=== PATIENT | male | born 1960 | race Caucasian/White ===

== ENCOUNTER 2018-01-21 15:10 | Outpatient (CLI) | payer MEDICARE ==
[~2018-01-21] VITALS: Ht 172.7 cm; Wt 97.7 kg
--- NOTE | ~2018-01-21 | HEMODYNAMI ---
PATIENT:JILLIAN SINCLAIR MEDICAL RECORD: [id number] : 58 [facility] AD[facility]ION DATE: 01/21/18 Generatedon:01/22/20189:09 Patient name: JILLIAN SINCLAIR Patient #: [id number] SSN: DO B: 1960 Date of study: 01/22/2018 Page: Of Hemodynamic Procedure Report Patient Data Patient Demographics Procedure consent was obtained First Name: JILLIAN Gender: Male Last Name: DOTTIE : 1960 Middle Initial: D Age: 57 year(s) Patient #: [id number] Race: Unknown Additional ID: [id number] Contact details Address: [address] [place] [address] [place] State: [place] City: [place] Zip code: [address] Past Medical History Allergies Allergen Reaction Date Comments Reported Other allergy 01/22/2018 Niacin, Lipitor Admission Admission Data Admission Date: 01/21/2018 Admission Time: 15:10 Admit Source: Other Room #: .2121 Procedure Procedure Types Cath Procedure Diagnostic Procedure C LH w/Coronaries Sedation Charges Moderate Sedation up to 15 minutes PCI Procedure Coronary Stent Coronary Stent Initial Procedure Description Procedure Date Procedure Date: 01/22/2018 Procedure Start Time: 8:46 Procedure End Time: 9:09 Procedure Staff Name Function Lamont Brand MD Performing Physician Cortney Albright RT Monitor Terell Smith RT Scrub Jamie Jones RN Nurse Procedure Data Cath Procedure Fluoroscopy Diagnostic fluoroscopy Total fluoroscopy Time: 4.6 time: 4.6 min min Diagnostic fluoroscopy Total fluoroscopy dose: 532 dose: 532 mGy mGy Contrast Material Contrast Material Type Amount (ml) Isovue 300 112 Entry Location Entry Primary Successful Side Size Upsize Upsize Entry Closure Lowe ccessful Closure Location (Fr) 1 (Fr) 2 (Fr) Remarks Device Remarks Radial Right 6 Fr Mechanical artery Short Compression Estimated blood loss: 5 ml Diagnostic catheters Device Type Used For End Catheter Placement DIAGNOSTIC Nelson 110cm 5 LV Angiography Fr catheter ([id number]) DIAGNOSTIC Nelson 110cm 5 Left Coronary Fr catheter ([id number]) Angiography DIAGNOSTIC Nelson 110cm 5 Right Coronary Fr catheter ([id number]) Angiography Procedure Complications No complications Procedure Medications Medication Administration Route Dosage Oxygen etCO2 Nasal cannula 2 l/min Heparin Flush Bag added to field 2 bags (1000units/500ml NS) 0.9% NaCl I.V. 100 ml/hr Radial Cocktail added to field 1 syringe (Verapomil 2mg/Nitro 400mcg/Heparin 1500units) Fentanyl I.V. 50 mcg Versed I.V. 1 mg Radial Cocktail I.A. 1 syringe (Verapomil 2mg/Nitro 400mcg/Heparin 1500units) Fentanyl I.V. 50 mcg Versed I.V. 1 mg Heparin Bolus I.V. 5000 units Integrilin (Bolus I.V. 9 ml 2mg/ml) Integrilin (Bolus wasted 1 ml 2mg/ml) Plavix P.O. 75 mg Hemodynamics Rest Heart Rate: 70 (bpm) Pressure Samples Time Site Value (mmHg) Purpose Heart Use Rate(bpm) 8:49 LV 106/8,14 EDP 70 8:49 AO 107/72(87) Pullback 71 8:49 LV 84/4,8 Pullback 71 Gradients Valve Time Site 1 Site 2 Mean SEP/DFP Peak To Heart Use (mmHg) (sec/min) Peak Rate (mmHg) (bpm) Aortic 8:49 LV AO 0 6 0 71 84/4,8 107/72(87) Calculations Valve P-P Mean Valve Index Valve Source Name Gradient Area Flow (cm2) Aortic 0 0 0 0 Snapshots Pre Cath Intra NCS Post Cath Vital Signs Time Heart Resp SPO2 etCO2 NIBP (mmHg) Rhythm Pain Sedation Rate (ipm) (%) (mmHg) Status Level (bpm) 8:35:30 69 16 88 0 134/84(119) NSR 0 (11) 10(A) , No pain 8:39:52 63 16 96 33.2 140/79(108) NSR 0 (11) 10(A) , No pain 8:44:12 75 17 94 33.2 146/92(112) NSR 0 (11) 10(A) , No pain 8:48:38 80 17 92 24.9 135/73(99) NSR 0 (11) 10(A) , No pain 8:52:57 66 17 90 37 116/78(94) NSR 0 (11) 10(A) , No pain 8:57:15 75 16 92 37 123/67(87) NSR 0 (11) 10(A) , No pain 9:01:28 74 16 93 36.3 110/68(99) NSR 0 (11) 10(A) , No pain 9:05:38 64 16 94 33.2 120/82(96) NSR 0 (11) 10(A) , No pain 9:08:47 72 16 93 37.8 128/83(93) NSR 0 (11) 10(A) , No pain Medications Time Medication Route Dose Verified Delivered Reason Note s Effectiveness by by 8:40:31 Oxygen etCO2 2 l/min Lamont Ayala Per physician Nasal St Narciso Jones RN cannula 8:40:40 Heparin Flush added 2 bags Lamont Ayala used for Bag to St Narciso Jones RN procedure (1000units/500ml field KOCH NS) 8:40:49 0.9% NaCl I.V. 100 Lamont Ayala Per physician ml/hr St Narciso Jones RN, MD 8:40:57 Radial Cocktail added 1 Lamont Ayala used for (Verapomil to syringe St Narciso Jones RN procedure 2mg/Nitro field KOCH 400mcg/Heparin 1500units) 8:46:22 Fentanyl I.V. 50 mcg Lamont Ayala for sedation St Narciso Jones RN, MD 8:46:28 Versed I.V. 1 mg Lamont Ayala for sedation St Narciso Jones RN, MD 8:48:19 Radial Cocktail I.A. 1 Lamont Miguel for (Verapomil syringe [place] [facility] vasodilation 2mg/Artemio KOCH MD 400mcg/Heparin 1500units) 8:48:27 Fentanyl I.V. 50 mcg Lamont Ayala for sedation St Narciso Jones RN, MD 8:48:32 Versed I.V. 1 mg Lamont Ayala for sedation St Narciso Jones RN, MD 8:55:53 Heparin Bolus I.V. 5000 Lamont Ayala for units St Narciso Jones RN anticoagulation 8:59:16 Integrilin I.V. 9 ml Lamont Ayala for (Bolus 2mg/ml) St Narciso Jones RN antiplatelet MD therapy 8:59:23 Integrilin wasted 1 ml Lamont hitchcock (Bolus 2mg/ml) [facility] Narciso Jones RN antiplatelet MD therapy 9:05:34 Plavix P.O. 75 mg Lamont Kaplan RN antiplatelet MD therapy Procedure Log Time Note 8:12:25 Jamie Jones RN sent for patient. Start room use. 8:22:05 Informed consent obtained and on chart 8:22:09 Admit Source: Other 8:22:24 Diagnostic Cath status Elective 8:22:26 Time tracking: Regular hours (M-F 7:00 - 5:00) 8:22:30 Plan of Care:Hemodynamics will remain stable., Cardiac rhythm will remain stable., Comfort level will be maintained., Respiratory function will remain adequate., Patient/ family verbilizes understanding of procedure., Procedure tolerated without complication., Recovers from procedure without complications.. 8:24:51 Patient received from Med II to CCL 3 Alert and oriented. Tansferred to table in Supine position. 8:24:52 Warm blankets applied, and usman hugger turned on for patient comfort. 8:24:52 Correct patient and procedure confirmed by team. 8:24:53 ECG and BP/O2 sat monitors applied to patient. 8:24:53 Pre-procedure instructions explained to patient. 8:24:54 Pre-op teaching completed and patient verbalized understanding. 8:24:56 Family in patients room. 8:24:57 Patient NPO since Midnight. 8:34:16 Vital chart was started 8:40:17 Baseline sample Acquired. 8:40:27 Rhythm: sinus rhythm 8:40:29 Full Disclosure recording started 8:40:31 Oxygen 2 l/min etCO2 Nasal cannula was administered by Jamie Jones RN; Per physician; 8:40:40 Heparin Flush Bag (1000units/500ml NS) 2 bags added to field was administered by Jamie Jones RN; used for procedure; 8:40:49 0.9% NaCl 100 ml/hr I.V. was administered by Jamie Jones RN; Per physician; 8:40:52 H&P Date Dictated: 01/21/2018 Within 30 days and on chart.. 8:40:57 Radial Cocktail (Verapomil 2mg/Nitro 400mcg/Heparin 1500units) 1 syringe added to field was administered by Jamie Jones RN; used for procedure; 8:41:09 Patient allergic to Other allergyNiacin, Lipitor 8:41:11 Is the patient allergic to Iodine/contrast media? No. 8:41:13 Is patient on blood thinner?Yes 8:41:15 ACC The patient was administered the following blood thiners within the last 24 hours: ACCPlavix 8:41:18 Patient diabetic? Yes. 8:41:20 If diabetic: On Metformin? Yes 8:41:22 If on Metformin: Last Dose? 01/21/2018 8:41:26 Previous problem with sedation/anesthesia? No ? 8:41:29 Snore? Yes 8:41:30 Sleep apnea? Yes 8:41:31 Deviated septum? No 8:41:32 Opens mouth fully? Yes 8:41:32 Sticks out tongue? Yes 8:41:38 Airway obstruction? No ? 8:41:42 Dentures? Yes ? 8:41:47 Pre procedure: right dorsailis pedis pulse 2+ Normal; easily identifiable; not easily obliterated 8:41:48 Modified Boris's test Ulnar < 7 seconds 8:41:51 Patient pain scale 0/10 ?. 8:41:58 IV patent on arrival in left antecubital with 0.9% NaCl at KVO. 8:42:00 Lab results completed and on chart. 8:42:04 Right Radial & Right Groin area was prepped with chlora-prep and draped in sterile fashion 8:42:05 Alarms reviewed by R. N. 8:42:05 Sharps counted by scrub and verified by R.N. 8:42:08 Use device set Radial Dx or PCI 8:42:09 ACIST Syringe (33472) opened to sterile field. 8:42:10 Medline Cath Pack ([id number]) opened to sterile field. 8:42:10 Bag Decanter (2002) opened to sterile field. 8:42:10 DIAGNOSTIC WIRE .035 260cm J wire (484337) opened to sterile field. 8:42:11 ACIST Hand Control (55179) opened to sterile field. 8:42:11 ACIST Manifold (40499) opened to sterile field. 8:42:16 SHEATH 6Fr Prelude Radial ([id number]) opened to sterile field. 8:42:25 Final Timeout: patient, procedure, and site verified with staff and physician. All members of the team are in agreement. 8:42:29 Right Radial site verified by team. 8:42:31 Physical assessment completed. ASA score P 2 - A patient with mild systemic disease as per Lamont Brand MD. 8:42:34 Sedation plan: IV Moderate Sedation Medication:Versed, Fentanyl 8:46:07 Zero performed for pressure channel P1 8:46:14 Procedure started. 8:46:19 Local anesthetic to right radial artery with Lidocaine 2% by Lamont Brand MD.INITIAL ACCESS ONLY 8:46:22 Fentanyl 50 mcg I.V. was administered by Jamie Jones RN; for sedation; 8:46:28 Versed 1 mg I.V. was administered by Jamie Jones RN; for sedation; 8:47:12 A 6 Fr Short sheath was inserted into the Right Radial artery 8:47:57 A DIAGNOSTIC Nelson 110cm 5 Fr catheter ([id number]) was advanced over the wire and used for LV Angiography. 8:48:19 Radial Cocktail (Verapomil 2mg/Nitro 400mcg/Heparin 1500units) 1 syringe I.A. was administered by Lamont Brand MD; for vasodilation; 8:48:27 Fentanyl 50 mcg I.V. was administered by Jamie Jones RN; for sedation; 8:48:32 Versed 1 mg I.V. was administered by Jamie Jones RN; for sedation; 8:49:31 LV gram done using ZEB 8:49:34 LV hemodynamics recorded. 8:49:38 Injector settings: Ml/sec: 5, Volume: 15, 8:49:43 EF : 55 % 8:50:12 A DIAGNOSTIC Nelson 110cm 5 Fr catheter (310304) was advanced over the wire and used for Left Coronary Angiography. 8:53:02 A DIAGNOSTIC Nelson 110cm 5 Fr catheter (183212) was advanced over the wire and used for Right Coronary Angiography. 8:53:07 Catheter removed. 8:53:11 Use device set MARYDEL PCI 8:53:13 GUIDE 6FR EBU 3.5 catheter ([id number]) opened to sterile field. 8:53:18 INFLATOR Merit BasixCompak (KQ6643) opened to sterile field. 8:54:20 WHISPER 300cm guide wire ([id number]) opened to sterile field. 8:55:36 6 Fr EBU 3.5 guide catheter was inserted over the wire 8:55:53 Heparin Bolus 5000 units I.V. was administered by Jamie Jones RN; for anticoagulation; 8:59:16 Integrilin (Bolus 2mg/ml) 9 ml I.V. was administered by Jamie Jones RN; for antiplatelet therapy; 8:59:23 Integrilin (Bolus 2mg/ml) 1 ml wasted was administered by Jamie Jones RN; for antiplatelet therapy; 8:59:29 WHISPER wire advanced. 9:03:11 Place stent Inflation Number: 1 A LARS OTW 3.0 x 18 stent ([id number]) was prepped and advanced across the Prox LAD. The stent was deployed at 14 DAVON for 0:30 (min:sec). 9:03:19 Stent catheter was removed intact over wire. 9:04:45 Wire removed. 9:04:45 Guide catheter removed. 9:05:01 Sheath removed intact; hemostasis achieved with Mechanical Compression to the Right Radial artery. 9:05:05 Procedure ended.(Physican Out) 9:05:34 Plavix 75 mg P.O. was administered by Jamie Jones RN; for antiplatelet therapy; 9:05:42 Fluoroscopy time 04.60 minutes. 9:05:50 Flurop Dose total: 532 9:05:50 Fluoroscopy dose: 532 mGy 9:05:59 Contrast amount:Isovue 300 112ml. 9:06:00 Sharps counted by scrub and verified by R.N. 9:06:02 Insertion/operative site no bleeding no hematoma. 9:06:04 TR band inflated with 10cc of air. 9:06:14 Post right radial artery:stable, clean and dry 9:06:15 Post Procedure Pulses reassessed and unchanged 9:06:17 Post-procedure physical assessment completed. ASA score P 2 - A patient with mild systemic disease as per Lamont Brand MD. 9:06:21 Post procedure rhythm: sinus rhythm 9:06:24 Estimated blood loss: 5 ml 9:06:26 Post procedure instruction explained to patient.Patient verbalizes understanding. 9:06:26 Patient needs reinforcement of post procedure teaching. 9:06:33 Procedure type changed to Cath procedure, Diagnostic procedure, LHC, LHC w/Coronaries, Sedation Charges, Moderate Sedation up to 15 minutes, PCI procedure, Coronary Stent, Coronary Stent Initial 9:07:15 Procedure and supply charges have been captured, reviewed, submitted and are correct. 9:07:30 Procedure Complication : No complications 9:07:32 See physician's report for complete and final results. 9:07:42 Report given to Pre/Post Procedure Room. 9:07:47 Patient transfered to Pre/Post Procedure Room with Bed. 9:09:11 Vital chart was stopped 9:09:12 Procedure ended. 9:09:12 Full Disclosure recording stopped 9:09:16 End room use (Document Last) Intervention Summary Intervention Notes Time ActionType Lesion and Equipment Action# Pressure Duration Attributes Used 9:03:11 Place stent Prox LAD LARS OTW 3.0 1 14 00:30 x 18 stent ([id number]) Device Usage Item Name Manufacture Quantity Catalog Number Hospital Part Current Minimal Lot# / Charge Number Stock Stock Serial# Code ACIST Syringe Acist 1 90556 250355 129558 282337 20 (68022) Medical Systems Inc Medline Cath Medline 1 [id number] 840481 10912 676933 5 Pack ([id number]) Bag Decanter Microtek 1 2001S 070607 62529 897499 5 () Medical Inc. DIAGNOSTIC WIRE St Teddy 1 551470 224591 784235 439081 30 .035 260cm J wire (054412) ACIST Hand Acist 1 76544 679776 974173 204804 5 Control (97502) [employer] ACIST Manifold Acist 1 25701 352686 227714 909660 5 (21398) Medical Systems Inc SHEATH 6Fr Merit 1 [id number] 777462 504444 182027 5 Prelude Radial Medical ([id number]) DIAGNOSTIC Terumo 1 40-5213 906013 815993 855656 5 Nelson 110cm 5 Fr catheter (122117) GUIDE 6FR EBU Medtronic 1 [id number] 468566 35302 809009 3 3.5 catheter ([id number]) INFLATOR Merit Merit 1 KO0157 373312 288076 793244 15 [employer] (AS4012) WHISPER 300cm Cheng 1 [id number] 113858 612698 692159 5 guide wire Vascular ([id number]) LARS OTW 3.0 x Medtronic 1 [id number] 577941 5045544 240263 5 [id number] 18 stent ([id number]) Signature Audit Long Key Stage Time Signature Unsigned Intra-Procedure 01/22/2018 Cortney 9:09:27 AM Counts RT(R) Signatures Monitor : Cortney Signature : Counts RT Date : Time : [address] [address]
--- NOTE | ~2018-01-21 | OP ---
PATIENT NAME: JILLIAN SINCLAIR MEDICAL RECORD: [id number] :58 [facility]ATION[facility] ADMISSION DATE:01/21/18 SURGEON: YOLANDA MANUEL MD DATE OF OPERATION: 01/22/2018 PROCEDURE: Left heart catheterization, selective coronary angiography, right radial approach. CATHETERS: Richardson catheter, radial sheath. We proceeded to do a PTCA stenting of the LAD. FINDINGS: Left ventriculography in 30-degree CASILLAS view: Normal wall motion and normal systolic function. CORONARY ANATOMY: LEFT MAIN: Left main is free of disease. LAD: Has a fissured plaque in its proximal portion, obviously culprit with about a 90% luminal encroachment. CIRCUMFLEX: Has 2 sequential 80% stenoses. RIGHT CORONARY ARTERY: Diffusely disease, but no flow obstructive stenosis. PLAN: Intervention LAD, circumflex in a staged fashion. DESCRIPTION OF PROCEDURE: Using the indwelling sheath, an EBU 3.5 guiding catheter provided good guide catheter support followed by 300 cm Whisper wire. The 90% fissured plaque in the LAD was addressed with a 3.0 x 18 Taurus drug-eluting stent to 14 atmospheres. This shows excellent resolution of a 90% plus stenosis with nice tacking of the fissured plaque to no significant residual. JOSHUA flow was 3 throughout the procedure. Sheath was closed with TR band. Plavix was loaded in the lab. He will be brought back again later today for staged procedure. 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
--- NOTE | ~2018-01-21 | HP ---
PATIENT: SANCHEZ SINCLAIR MEDICAL RECORD: [id number] ACCOUNT: [id number] LOCATION:[facility] : 58 ADMISSION DATE: 01/21/18 PCP: YURIDIA HARDING HISTORY AND PHYSICAL EXAMINATION HISTORY OF PRESENT ILLNESS: Sanchez [place] is a 57-year-old gentleman with a known history of coronary artery disease, status post intervention approximately 4 years ago. He has a history of dyslipidemia, statin intolerant, transferred from [place] with elevated troponin, consistent with NSTEMI. He has had his usual angina as of late. Agree with rest; however, does try to work out on a regular basis. He is a nonsmoker. PAST MEDICAL HISTORY: Includes: 1. History of hyperlipidemia. 2. Coronary artery disease as described above. ALLERGIES: STATINS, which cause myalgias. MEDICATIONS: Aspirin 325 every day. SOCIAL HISTORY: Lives in the [facility]. He is a nonsmoker, nondrinker. Does exercise on a regular basis. REVIEW OF SYSTEMS: The patient reports easy bruising but reports no swollen glands. The patient reports no fever, no night sweats, no significant weight gain, no significant weight loss. No significant exercise tolerance. The patient reports no dry eyes, no irritation, no vision change. Patient reports no difficulty hearing and no ear pain. Patient reports no frequent nose bleeds or nose and sinus problems. Patient reports on arm pain on exertion. No shortness of breath while lying down. No history of heart murmur. Patient reports no cough, no wheezing or coughing up blood. Patient reports no abdominal pain, no vomiting. Normal appetite. No diarrhea and not vomiting blood. No nausea and no constipation. Patient reports no incontinence. No difficulty urinating. No hematuria. No increased frequency. Patient reports no muscle aches. No weakness, no arthralgias, no back pain. No swelling of the extremities. Patient reports no abnormal mole, no jaundice, no rashes. Reports no loss of consciousness. No weakness and no numbness. No seizures, dizziness, or headaches. The patient reports no depression, no sleep disturbance, feeling safe in a relationship and no alcohol abuse. Patient reports on fatigue. Reports no runny nose or sinus pressure. No itching, no hives, and no frequent sneezing. PHYSICAL EXAMINATION: GENERAL: Pleasant gentleman, appears stated age. VITAL SIGNS: Blood pressure 115/67, pulse 60 and regular. HEENT: Normocephalic and atraumatic. NECK: No bruits. HEART: Regular. A II/ systolic ejection murmur. LUNGS: Good air excursion. ABDOMEN: Soft and nontender. EXTREMITIES: Pulses 2+. There is no edema. NEUROLOGIC: Grossly intact. IMPRESSION: NSTEMI, acute coronary syndrome. HISTORY AND PHYSICAL [id number] SANCHEZ SINCLAIR PLAN: Angiography, intervention based on above. 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
[2018-01-21 18:33] VITALS: BP 135/71; BMI 32.7
[2018-01-21 22:02] VITALS: BP 120/58
[2018-01-22 01:00] VITALS: BP 122/67
[2018-01-22 04:00] VITALS: BP 114/69
[2018-01-22] MEDS ORDERED: GLUCOPHAGE XR750 MG PO ×2 (04:06→09:46)
[2018-01-22] MEDS ORDERED: LIPITOR10 MG PO ×2 (04:06→09:46)
[2018-01-22 04:49] LABS: BASOPHILS 0.4 % (0-2); EOSINOPHILS 4.2 % (0-7); HEMATOCRIT 47.9 % (42.0-54.0); HEMOGLOBIN 15.8 g/dL (13.5-17.5); IMMATURE GRANULOCYTES 0.3 % (0-5); LYMPHOCYTES 27.7 % (15-50); MCH 29.3 pg (26.0-34.0); MCV 88.7 fL (80.0-100.0); MEAN PLATELET VOLUME 10.6 fL (7.4-10.4); MONOCYTES 7.8 % (2-11); NEUTROPHILS 59.6 % (40-80); PLATELET COUNT 186 10x3/uL (130-400); RDW 14.4 % (11.5-14.5); WBC 9.6 10x3/uL (4.8-10.8)
[2018-01-22 05:08] LABS: CALC OSMOLALITY 279 mosm/kg (275-300); CALCIUM 8.8 mg/dL (8.5-10.1); CARBON DIOXIDE 24.7 mmol/L (21.0-32.0); CHLORIDE - SERUM 104 mmol/L (98-107); CREATININE - SERUM 0.7 mg/dL (0.6-1.3); GLUCOSE 147 mg/dL (74-106); POTASSIUM - SERUM 4.2 mmol/L (3.5-5.1); SODIUM 138 mmol/L (136-145); UREA NITROGEN 15 mg/dL (7-18); eGFR NON AFRICAN AMERICAN > 90 mL/min (90-120)
[2018-01-22 08:08] VITALS: BP 115/67
[2018-01-22] MEDS ORDERED: PLAVIX75 MG PO (09:40)
[2018-01-22] MEDS ORDERED: BAYER CHEWABLE81 MG PO (09:44)
[2018-01-27 12:55] VITALS: Ht 172.7 cm; Wt 97.7 kg
== END 2018-01-22 13:16 | disposition home or self-care (01) ==
LOC: OBSVTIME → D.OPS 15:10 → UNDOADMOB 15:10 → D.M2 15:10 → D.CLR 15:10 → OBSVTIME 15:11 → D.M2 01-22 09:17 → D.CLR 01-22 09:17 → EDSTATUS 01-22 12:30 → D.CLR 01-22 13:16 → EDBD 01-22 13:16 → D.CLR 01-22 13:16 → D.OPS 01-22 13:16
PROVIDERS: Internal Medicine Interventional Cardiology
DX: I21.4 Non-ST elevation (NSTEMI) myocardial infarction (principal); I25.10 Atherosclerotic heart disease of native coronary artery without angina pectoris; Z98.61 Coronary angioplasty status; E78.5 Hyperlipidemia, unspecified
CPT/HCPCS: 93458; C9600

== ENCOUNTER 2018-01-27 11:26 | Outpatient (CLI) | payer MEDICARE ==
[~2018-01-27] VITALS: Ht 172.7 cm; Wt 96.8 kg
--- NOTE | ~2018-01-27 | HEMODYNAMI ---
PATIENT:JILLIAN SINCLAIR MEDICAL RECORD: [id number] : 58 LOCATION:[facility] ADMISSION DATE: 01/27/18 Generatedon:01/27/201814:58 Patient name: JILLIAN SINCLAIR Patient #: [id number] SSN: DO B: 1960 Date of study: 01/27/2018 Page: Of Hemodynamic Procedure Report Patient Data Patient Demographics Procedure consent was obtained First Name: JILLIAN Gender: Male Last Name: DOTTIE : 1960 Middle Initial: D Age: 57 year(s) Patient #: [id number] Race: Unknown Additional ID: [id number] Contact details [address]: [address] [place] [address] cutoff State: [place] City: [place] Zip code: [address] Past Medical History Allergies Allergen Reaction Date Comments Reported Other allergy 01/22/2018 Niacin, Lipitor Statins 01/27/2018 Admission Admission Data Admission Date: 01/27/2018 Admission Time: 11:26 Lab Results Lab Result Date: 01/27/2018 Lab Result Time: 0:00 Biochemistry Name Units Result Min Max BUN mg/dl 11 --(-*--)-- 7 18 Creatinine mg/dl 0.7 --(*---)-- 0.6 1.3 Procedure Procedure Types Cath Procedure PCI Procedure Coronary Stent Coronary Stent Initial Procedure Description Procedure Date Procedure Date: 01/27/2018 Procedure Start Time: 14:35 Procedure End Time: 14:56 Procedure Staff Name Function Lamont Brand MD Performing Physician Pedro Glover RT Monitor Kaela Swan RT Scrub Huma Delacruz RN Nurse Procedure Data Cath Procedure Fluoroscopy Diagnostic fluoroscopy Total fluoroscopy Time: 4.7 time: 4.7 min min Diagnostic fluoroscopy Total fluoroscopy dose: 803 dose: 803 mGy mGy Contrast Material Contrast Material Type Amount (ml) Isovue 300 76 Entry Location Entry Primary Successful Side Size Upsize Upsize Entry Closure Lowe ccessful Closure Location (Fr) 1 (Fr) 2 (Fr) Remarks Device Remarks Radial Right 6 Fr Mechanical artery Short Compression Procedure Complications No complications Procedure Medications Medication Administration Route Dosage Oxygen etCO2 Nasal cannula 3 l/min Lidocaine 2% added to field 20 Heparin Flush Bag added to field 2 bags (1000units/500ml NS) 0.9% NaCl I.V. 100 ml/hr Radial Cocktail I.A. 1 syringe (Verapomil 2mg/Nitro 400mcg/Heparin 1500units) Versed I.V. 1 mg Fentanyl I.V. 50 mcg Versed I.V. 1 mg Fentanyl I.V. 50 mcg Heparin Bolus I.V. 4000 units Versed I.V. 1 mg Fentanyl I.V. 50 mcg Versed I.V. 1 mg Fentanyl I.V. 50 mcg Hemodynamics Rest Heart Rate: 79 (bpm) Snapshots Pre Cath Intra NCS Post Cath Vital Signs Time Heart Resp SPO2 etCO2 NIBP (mmHg) Rhythm Pain Sedation Rate (ipm) (%) (mmHg) Status Level (bpm) 14:17:57 75 16 94 15 135/83(94) NSR 0 (11) 10(A) , No pain 14:22:07 78 14 93 21.1 128/77(93) NSR 0 (11) 10(A) , No pain 14:26:17 74 13 94 20.3 106/79(92) NSR 0 (11) 10(A) , No pain 14:30:16 79 14 92 0 118/80(100) NSR 0 (11) 10(A) , No pain 14:34:20 82 18 92 0 122/88(97) NSR 0 (11) 10(A) , No pain 14:38:28 83 14 93 21 116/77(96) NSR 0 (11) 10(A) , No pain 14:43:21 126 16 92 21.8 114/69(92) NSR 0 (11) 10(A) , No pain 14:47:27 70 15 93 21.8 117/76(99) NSR w/ ST 6 (11) 10(A) Elevation , Intense 14:51:30 76 14 94 19.6 135/86(112) NSR w/ ST 6 (11) 10(A) Elevation , Intense 14:55:42 73 12 92 21.1 135/84(124) NSR w/ ST 6 (11) 10(A) Elevation , Intense Medications Time Medication Route Dose Verified Delivered Reason Not es Effectiveness by by 14:16:31 Oxygen etCO2 3 l/min Lamont Randhawaie used for Nasal St Narciso Delacruz RN procedure cannula 14:16:38 Lidocaine 2% added 20ml Lamont Miguel for local to vial [facility] anesthetic field MD KOCH 14:16:43 Heparin Flush added 2 bags Lamont Miguel used for Bag to [facility] procedure (1000units/500ml field MD KOCH NS) 14:16:51 0.9% NaCl I.V. 100 Lamont Randhawaie Per physician ml/hr St Narciso Delacruz RN, MD 14:20:37 Radial Cocktail I.A. 1 Lamont Miguel for (Verapomil syringe [facility] vasodilation 2mg/Nitro MD KOCH 400mcg/Heparin 1500units) 14:30:47 Versed I.V. 1 mg Lamont Randhawaie for sedation St Narciso Delacruz RN, MD 14:30:53 Fentanyl I.V. 50 mcg Lamont Randhawaie for sedation St Narciso Delacruz RN, MD 14:36:14 Versed I.V. 1 mg Lamont Randhawaie for sedation St Narciso Delacruz RN, MD 14:36:18 Fentanyl I.V. 50 mcg Lamont Buffie for sedation St Narciso Delacruz RN, MD 14:37:29 Heparin Bolus I.V. 4000 Lamont Buffie for kaleb ified units St Narciso Delacruz RN anticoagulation with dr MD berman 14:43:19 Versed I.V. 1 mg Lamont Buffie for sedation St Narciso Delacruz RN, MD 14:43:25 Fentanyl I.V. 50 mcg Lamont Randhawaie for sedation St Narciso Delacruz RN, MD 14:47:44 Versed I.V. 1 mg Lamont Randhawaie for sedation St Narciso Delacruz RN, MD 14:47:47 Fentanyl I.V. 50 mcg Lamont Buffie for sedation St Narciso Delacruz RN, MD Procedure Log Time Note 14:13:12 Pedro BURDEN(R) sent for patient. Start room use. 14:13:13 Time tracking: Regular hours (M-F 7:00 - 5:00) 14:13:17 Plan of Care:Hemodynamics will remain stable., Cardiac rhythm will remain stable., Comfort level will be maintained., Respiratory function will remain adequate., Patient/ family verbilizes understanding of procedure., Procedure tolerated without complication., Recovers from procedure without complications.. 14:13:23 Patient received from Pre/Post Procedure Room to CCL 2 Alert and oriented. Tansferred to table in Supine position. 14:13:25 Warm blankets applied, and usman hugger turned on for patient comfort. 14:13:26 Correct patient and procedure confirmed by team. 14:13:27 Signed procedure consent form obtained from patient. 14:13:28 ECG and BP/O2 sat monitors applied to patient. 14:16:31 Oxygen 3 l/min etCO2 Nasal cannula was administered by Huma Delacruz RN; used for procedure; 14:16:38 Lidocaine 2% 20ml vial added to field was administered by Lamont Brand MD; for local anesthetic; 14:16:43 Heparin Flush Bag (1000units/500ml NS) 2 bags added to field was administered by Lamont Brand MD; used for procedure; 14:16:51 0.9% NaCl 100 ml/hr I.V. was administered by Huma Delacruz RN; Per physician; 14:16:54 Vital chart was started 14:20:37 Radial Cocktail (Verapomil 2mg/Nitro 400mcg/Heparin 1500units) 1 syringe I.A. was administered by Lamont Brand MD; for vasodilation; 14:25:39 Baseline sample Acquired. 14:25:41 Rhythm: sinus rhythm 14:25:42 Full Disclosure recording started 14:25:46 H&P Date Dictated: 01/27/2018 Within 30 days and on chart.. 14:25:47 Pre-procedure instructions explained to patient. 14:26:03 Pre-op teaching completed and patient verbalized understanding. 14:26:04 Family in waiting room. 14:26:06 Patient NPO since Midnight. 14:26:13 Patient allergic to Statins 14:26:15 Is the patient allergic to Iodine/contrast media? No. 14:26:19 Is patient on blood thinner?Yes 14:26:22 ACC The patient was administered the following blood thiners within the last 24 hours: ACCPlavix 14:26:26 Patient diabetic? Yes. 14:26:28 If diabetic: On Metformin? Yes 14:26:37 If on Metformin: Last Dose? 01/24/2018 14:26:39 ----Pre-sedation anethsthesia assessment.---- 14:26:41 Previous problem with sedation/anesthesia? No ? 14:26:42 Snore? Yes 14:26:43 Sleep apnea? Yes 14:26:44 Deviated septum? No 14:26:45 Opens mouth fully? Yes 14:26:46 Sticks out tongue? Yes 14:26:54 Airway obstruction? Yes thicking of the lung wall 14:26:57 Dentures? No ? 14:27:00 Pre procedure: right dorsailis pedis pulse 2+ Normal; easily identifiable; not easily obliterated 14:27:04 Modified Boris's test Ulnar < 7 seconds 14:27:06 Patient pain scale 0/10 ?. 14:27:11 IV patent on arrival in left antecubital with 0.9% NaCl at 10ml/hr. 14:28:37 Lab Result : BUN 11 mg/dl 14:28:37 Lab Result : Creatinine 0.7 mg/dl 14:28:40 Lab results completed and on chart. 14:28:42 Right Radial & Right Groin area was prepped with chlora-prep and draped in sterile fashion 14:28:44 Zero performed for pressure channel P1 14:28:47 Alarms reviewed by R. N. 14:28:47 Sharps counted by scrub and verified by R.N. 14:28:48 Physician arrived 14:28:49 --------ALL STOP TIME OUT------ 14:28:49 Final Timeout: patient, procedure, and site verified with staff and physician. All members of the team are in agreement. 14:28:52 Right Radial & Right Groin site verified by team. 14:28:56 Physical assessment completed. ASA score P 2 - A patient with mild systemic disease as per Lamont Brand MD. 14:29:00 Sedation plan: IV Moderate Sedation Medication:Versed, Fentanyl 14:29:21 INFLATOR Merit BasixCompak ([id number]) opened to sterile field. 14:29:23 WHISPER 300cm guide wire ([id number]) opened to sterile field. 14:29:26 GUIDE 6FR EBU 3.5 catheter ([id number]) opened to sterile field. 14:29:43 Use device set Radial Dx or PCI 14:29:44 ACIST Syringe (82653) opened to sterile field. 14:29:45 Medline Cath Pack ([id number]) opened to sterile field. 14:29:45 Bag Decanter (2001S) opened to sterile field. 14:29:46 DIAGNOSTIC WIRE .035 260cm J wire (247456) opened to sterile field. 14:29:47 ACIST Hand Control (51493) opened to sterile field. 14:29:48 ACIST Manifold (01168) opened to sterile field. 14:29:49 Tegaderm 4 x 4 (1626W) opened to sterile field. 14:29:49 MBrace Wrist Support ([id number]) opened to sterile field. 14:29:52 TR BAND Standard (OHH10IIT) opened to sterile field. 14:29:54 SHEATH 6Fr Prelude Radial ([id number]) opened to sterile field. 14:29:57 Procedure started. 14:30:47 Versed 1 mg I.V. was administered by Huma Delacruz RN; for sedation; 14:30:53 Fentanyl 50 mcg I.V. was administered by Huma Delacruz RN; for sedation; 14:35:15 Local anesthetic to right radial artery with Lidocaine 2% by Lamont Brand MD.INITIAL ACCESS ONLY 14:35:25 A 6 Fr Short sheath was inserted into the Right Radial artery 14:35:34 Zero performed for pressure channel P1 14:36:14 Versed 1 mg I.V. was administered by Huma Delacruz RN; for sedation; 14:36:18 Fentanyl 50 mcg I.V. was administered by Huma Delacruz RN; for sedation; 14:37:29 Heparin Bolus 4000 units I.V. was administered by Huma Delacruz RN; for anticoagulation; verified with dr berman 14:42:22 6 Fr EBU 3.5 guide catheter was inserted over the wire 14:42:27 WHISPER wire advanced. 14:43:19 Versed 1 mg I.V. was administered by Huma Delacruz RN; for sedation; 14:43:25 Fentanyl 50 mcg I.V. was administered by Huma Delacruz RN; for sedation; 14:47:39 Place stent Inflation Number: 1 A LARS OTW 3.5 x 15 stent ([id number]) was prepped and advanced across the Dist CX. The stent was deployed at 12 DAVON for 0:45 (min:sec). 14:47:44 Versed 1 mg I.V. was administered by Huma Delacruz RN; for sedation; 14:47:47 Fentanyl 50 mcg I.V. was administered by Huma Delacruz RN; for sedation; 14:48:34 Stent catheter was removed intact over wire. 14:48:34 Wire removed. 14:48:38 Guide catheter removed. 14:48:56 Procedure type changed to Cath procedure, PCI procedure, Coronary Stent, Coronary Stent Initial 14:49:15 Sheath removed intact; hemostasis achieved with Mechanical Compression to the Right Radial artery. 14:49:21 Procedure ended.(Physican Out) 14:49:26 Fluoroscopy time 04.70 minutes. 14:49:31 Flurop Dose total: 803 14:49:31 Fluoroscopy dose: 803 mGy 14:49:48 Contrast amount:Isovue 300 76ml. 14:49:49 Sharps counted by scrub and verified by R.N. 14:49:51 TR band inflated with 12cc of air. 14:49:52 Insertion/operative site no bleeding no hematoma. 14:49:59 Post right radial artery:stable 14:50:01 Post Procedure Pulses reassessed and unchanged 14:50:06 Post-procedure physical assessment completed. ASA score P 2 - A patient with mild systemic disease as per Lamont Brand MD. 14:50:08 Post procedure rhythm: sinus rhythm 14:50:10 Post procedure instruction explained to patient.Patient verbalizes understanding. 14:50:11 Procedure and supply charges have been captured, reviewed, submitted and are correct. 14:52:51 Procedure Complication : No complications 14:56:26 Vital chart was stopped 14:56:26 See physician's report for complete and final results. 14:56:36 Report given to Pre/Post Procedure Room. 14:56:40 Patient transfered to Pre/Post Procedure Room with Stretcher. 14:56:41 Procedure ended. 14:56:41 Full Disclosure recording stopped 14:56:47 End room use (Document Last) Intervention Summary Intervention Notes Time ActionType Lesion and Equipment Action# Pressure Duration Attributes Used 14:47:39 Place stent Dist CX LARS OTW 3.5 1 12 00:45 x 15 stent ([id number]) Device Usage Item Name Manufacture Quantity Catalog Number Hospital Part Current Minimal Lot# / Charge Number Stock Stock Serial# Code INFLATOR Merit Merit 1 [id number] 045572 954044 027297 15 OnHandmaCompact Imaging ([id number]) WHISPER 300cm Cheng 1 [id number] 771676 445926 982755 5 guide wire Vascular ([id number]) GUIDE 6FR EBU Medtronic 1 [id number] 059165 08691 220294 3 3.5 catheter ([id number]) ACIST Syringe Acist 1 25194 772080 390386 212763 20 (08557) Medical Systems Inc Medline Cath Medline 1 [id number] 829409 36751 787207 5 Pack ([id number]) Bag Decanter Microtek 1 2001S 357710 39052 662104 5 (2001S) Medical Inc. DIAGNOSTIC WIRE St Teddy 1 797642 500663 474409 042286 30 .035 260cm J wire (984205) ACIST Hand Acist 1 09093 815180 858144 127406 5 Control (69898) Medical Systems Inc ACIST Manifold Acist 1 04491 058036 564753 215342 5 (06641) Medical Systems Inc Tegaderm 4 x 4 3M 1 1626W 184279 298369 773885 5 (1626W) MBrace Wrist Advanced 1 140-0250-00 250270 09527 960872 5 Support Vascular ([id number]) Dynamics TR BAND Terumo 1 [id number] 264660 225676 817855 40 Standard ([id number]) SHEATH 6Fr Merit 1 [id number] 848714 818032 698801 5 Prelude Radial Medical ([id number]) LARS OTW 3.5 x Medtronic 1 [id number] 026114 2229880 819801 5 [id number] 15 stent ([id number]) Signature Audit [place] Stage Time Signature Unsigned Intra-Procedure 01/27/2018 Pedro Glover RT(Raissa) 2:57:55 PM Signatures Monitor : Pedro Glover RT Signature : Date : Time : [facility] [address] [place] [address]
--- NOTE | ~2018-01-27 | HP ---
PATIENT: JILLIAN SINCLAIR MEDICAL RECORD: [id number] ACCOUNT: [id number] LOCATION:[facility] : 58 ADMISSION DATE: 01/27/18 PCP: YURIDIA HARDING HISTORY AND PHYSICAL EXAMINATION INTERIM HISTORY AND PHYSICAL HISTORY: A 57-year-old gentleman with known history of coronary disease, status post recent stenting of the LAD. He has residual disease in circumflex of 80%, being addressed today. His angina has improved, but still class II angina since revascularization of the LAD. PAST MEDICAL HISTORY: 1. Hypertension. 2. Hyperlipidemia. MEDICATIONS: Include Plavix 75 daily, aspirin 81 daily, atorvastatin 10 daily, and metformin 750 b.i.d. PHYSICAL EXAMINATION: GENERAL: This is a pleasant gentleman, in no acute distress. NECK: No JVD or bruit. HEART: Regular. LUNGS: Lung berkowitz are clear. ABDOMEN: Soft and nontender. EXTREMITIES: Pulses 2+ with no edema. IMPRESSION: Plan for intervention to circumflex today. TRANSINT:[id number] Voice Confirmation ID: [id number] DOCUMENT ID: [id number] YOLANDA MANUEL MD at 1418 CC: [id number] DICTATION DATE: 01/27/18 1431 HORSE FARM MANAGER: 01/27/18 1638 DEP CLI 01/27/18 [id number] [place] [address]
--- NOTE | ~2018-01-27 | OP ---
PATIENT NAME: JILLIAN SINCLAIR MEDICAL RECORD: [id number] :58 LOCATION:D.CAT ADMISSION DATE: SURGEON: YOLANDA MANUEL MD DATE OF OPERATION: 01/27/2018 PROCEDURE: MANAGER SUSTAINABILITY and stent of circumflex. Catheters used include a XB EBU 3.5 guiding catheter, Whisper wire, 3.5 x 15-mm Taurus drug-eluting stent. For magnetic grinder operator film of circumflex, please see previous catheterization report. DESCRIPTION OF PROCEDURE: After the left main was cannulated with the EBU catheter, a 300-cm Whisper wire was placed across the tightly occluded circumflex down this portion of vessel. Stent deployed was a 3-5 x 15-mm Taurus drug-eluting stent up to 14 atmospheres. Final angiography shows excellent resolution of an 80% to 90% stenosis. No significant residual. There was some snowplowing to an inferior branch of the circ OM itself with JOSHUA flow 2. This was not attempt to be wired due to the small nature of the vessel. OVERALL IMPRESSION: Successful MANAGER SUSTAINABILITY and stenting of circ OM. TRANSINT:[id number] Voice Confirmation ID: [id number] DOCUMENT ID: [id number] YOLANDA MANUEL MD at 2229 CC: [id number] DICTATION DATE: 01/27/18 1512 SERVICE WORKER: 01/27/18 1653 DEP CLI 01/27/18 [facility] [address] [place] [address]
[~2018-01-27 11:26] MED LIST: BAYER CHEWABLE81 MG PO; GLUCOPHAGE XR750 MG PO; LIPITOR10 MG PO; PLAVIX75 MG PO
[2018-01-27 12:54] LABS: BASOPHILS 0.4 % (0-2); EOSINOPHILS 3.2 % (0-7); HEMATOCRIT 51.5 % (42.0-54.0); HEMOGLOBIN 17.6 g/dL (13.5-17.5); IMMATURE GRANULOCYTES 0.3 % (0-5); MCH 29.8 pg (26.0-34.0); MCHC 34.2 g/dL (31.0-37.0); MCV 87.1 fL (80.0-100.0); MEAN PLATELET VOLUME 10.1 fL (7.4-10.4); MONOCYTES 7.1 % (2-11); PLATELET COUNT 186 10x3/uL (130-400); RBC 5.91 10x6/uL (4.20-6.10); RDW 14.1 % (11.5-14.5); WBC 9.6 10x3/uL (4.8-10.8)
[2018-01-27 12:55] VITALS: BP 136/72; Ht 172.7 cm; Wt 96.8 kg
[2018-01-27 13:01] LABS: CALC OSMOLALITY 279 mosm/kg (275-300); CARBON DIOXIDE 27.7 mmol/L (21.0-32.0); CHLORIDE - SERUM 102 mmol/L (98-107); CREATININE - SERUM 0.7 mg/dL (0.6-1.3); GLUCOSE 152 mg/dL (74-106); POTASSIUM - SERUM 4.2 mmol/L (3.5-5.1); SODIUM 139 mmol/L (136-145); UREA NITROGEN 11 mg/dL (7-18); eGFR NON AFRICAN AMERICAN > 90 mL/min (90-120)
== END 2018-01-27 19:00 | disposition home or self-care (01) ==
LOC: D.CATH 11:26
PROVIDERS: Internal Medicine Interventional Cardiology
DX: I25.110 Atherosclerotic heart disease of native coronary artery with unstable angina pectoris (principal)

== ENCOUNTER 2018-02-12 14:01 | Emergency (ER) | payer MEDICARE ==
[~2018-02-12] VITALS: Ht 172.7 cm; Wt 94.1 kg
[2018-02-12 14:15] VITALS: Ht 172.7 cm; Wt 94.1 kg
[2018-02-12 14:53] LABS: BASOPHILS 0.2 % (0-2); EOSINOPHILS 1.8 % (0-7); HEMATOCRIT 46.2 % (42.0-54.0); HEMOGLOBIN 15.7 g/dL (13.5-17.5); IMMATURE GRANULOCYTES 0.2 % (0-5); LYMPHOCYTES 14.6 % (15-50); MCH 29.5 pg (26.0-34.0); MCV 86.8 fL (80.0-100.0); MEAN PLATELET VOLUME 10.1 fL (7.4-10.4); MONOCYTES 5.7 % (2-11); NEUTROPHILS 77.5 % (40-80); PLATELET COUNT 196 10x3/uL (130-400); RBC 5.32 10x6/uL (4.20-6.10); WBC 12.3 10x3/uL (4.8-10.8)
[2018-02-12 15:02] LABS: APTT 24.5 SECONDS (22.8-39.4); INR 1.05 (0.85-1.17); PROTIME 13.3 SECONDS (11.6-15.0)
[2018-02-12 15:07] LABS: ALBUMIN 3.6 g/dL (3.4-5.0); ALKALINE PHOSPHATASE 79 U/L (46-116); ALT (SGPT) 26 U/L (10-68); BILIRUBIN - TOTAL 0.63 mg/dL (0.2-1.3); CALC OSMOLALITY 280 mosm/kg (275-300); CALCIUM 8.9 mg/dL (8.5-10.1); CARBON DIOXIDE 26.6 mmol/L (21.0-32.0); CHLORIDE - SERUM 102 mmol/L (98-107); CREATININE - SERUM 0.7 mg/dL (0.6-1.3); POTASSIUM - SERUM 3.9 mmol/L (3.5-5.1); PROTEIN - SERUM 7.7 g/dL (6.4-8.2); SODIUM 137 mmol/L (136-145); UREA NITROGEN 15 mg/dL (7-18); eGFR NON AFRICAN AMERICAN > 90 mL/min (90-120)
[2018-02-12 15:17] LABS: GLUCOSE 211 mg/dL (74-106)
[2018-02-12 15:19] LABS: CKMB 3.8 U/L (0.0-3.6); CREATINE KINASE 109 UL (21-232); MAGNESIUM - SERUM 1.9 mg/dL (1.8-2.4); TROPONIN-I < 0.017 ng/mL (0.000-0.060)
[2018-02-12 18:44] VITALS: BP 142/89
== END 2018-02-12 18:46 | disposition home or self-care (01) ==
LOC: D.ER 14:01
PROVIDERS: Family Medicine
DX: R51 Headache (principal); R42 Dizziness and giddiness; R07.9 Chest pain, unspecified; R20.2 Paresthesia of skin; E11.9 Type 2 diabetes mellitus without complications; K21.9 Gastro-esophageal reflux disease without esophagitis

== ENCOUNTER → 2018-07-05 09:15 | Outpatient (CLI) | payer MEDICARE ==
[2018-02-12 14:15] VITALS: BMI 31.5
--- NOTE | 2018-07-07 14:51 | EC ---
PATIENT:JILLIAN SINCLAIR DATE OF SERVICE: 07/05/18 SEX: M MEDICAL RECORD: [id number] DATE OF : 58 [facility]ATION:[facility] AGE OF PATIENT: 57 ADMISSION DATE: 07/05/18 REFERRING PHYSICIAN: INTERPRETING PHYSICIAN: YOLANDA MANUEL MD ECHOCARDIOGRAM REPORT ECHO CHARGES 4 ECHO COMPLETE Date: 07/05/18 CLINICAL DIAGNOSIS: HX OF CAD/AFIB ECHOCARDIOGRAPHIC MEASUREMENTS (adult normal given) AC root (d.<3.7cm) 4.5 cm LV Septum d (<1.2 cm> 1.5 cm Valve Excursion 3.0 cm LV Septum (systole) 1.8 cm Left Atria (s.<4.0cm> 4.4 cm LVPW d(<1.2cm) 1.7 cm RV (d.<2.3cm) 3.5 cm LVPW (sytole) 2.3 cm LV diastole(<5.6CM) 5.5 cm MV E-F(>70mm/sec) cm LV systole 3.3 cm LVOT Diameter 2.2 cm MV exc.(>10mm) 2.0 cm Est.ejection fraction (50-75%) % DOPPLER: LVIT cm/sec A 87.0 cm/sec E 65.0 cm/sec LA cm/sec RVSP 25 mmHg LVOT 143 cm/sec AOP1/2T m/s Asc. Ao 142 cm/sec RVOT 102 cm/sec RA cm/sec PA 117 cm/sec AV Gradient Peak 8.05 mmHg AV Mean 4.09 mmHg AV Area 3.7 cm MV Gradient Peak 5.64 mmHg MV Mean 2.07 mmHg MV Area cm COMMENTS: Hypoid Gear Tester: 2 CATHERINE JARVIS Chemical Compounder Helper: 3 Dr. Winters TAPE# PACS Pericardial Effusion N DATE OF SERVICE: Adequate 2D, color flow, spectral Doppler, and M-Mode. Mild LVH. LV internal dimensions are normal, wall motion normal. EF is greater than or equal to 55%. Aortic valve sclerosis without stenosis by Doppler interrogation. Left atrium is dilated at 4.4 cm. Mitral valve shows no prolapse. Trace MR. Right-sided chambers grossly normal. Trace TR. TRANSINT:[id number] Voice Confirmation ID: [id number] DOCUMENT ID: [id number] ECHOCARDIOGRAM REPORT [id number] BURJILLIAN DOMINIQUE GREGORY A MD at 1451 CC: [id number] DICTATION DATE: 07/06/18 1414 EXECUTIVE STAFF ASSISTANT: 07/06/18 1557 DEP CLI 07/05/18 [address] [address] [place] [address]
== END | disposition home or self-care (01) ==
LOC: D.HCCARDIO 09:00
PROVIDERS: ATTEND Internal Medicine Interventional Cardiology
DX: I25.10 Atherosclerotic heart disease of native coronary artery without angina pectoris (principal)

== ENCOUNTER 2018-08-25 21:59 | Inpatient (IN) | payer MEDICARE ==
[~2018-08-25] VITALS: Ht 172.7 cm; Wt 97.7 kg
--- NOTE | ~2018-08-25 | HEMODYNAMI ---
PATIENT:JILLIAN SINCLAIR MEDICAL RECORD: [id number] : 58 LOCATION:D. D.2117 ADMISSION DATE: 08/25/18 Generatedon:08/26/20187:38 Patient name: JILLIAN SINCLAIR Patient #: [id number] SSN: DO B: 1960 Date of study: 08/26/2018 Page: Of Hemodynamic Procedure Report Patient Data Patient Demographics Procedure consent was obtained First Name: JILLIAN Gender: Male Last Name: DOTTIE : 1960 Middle Initial: KEN Age: 57 year(s) Patient #: [id number] Race: Unknown Additional ID: [id number] Contact details [address]: [address] [place] [address] cutoff State: [place] City: [place] Zip code: [address] Past Medical History Allergies Allergen Reaction Date Comments Reported Other allergy 01/22/2018 Niacin, Lipitor Statins 01/27/2018 Other allergy 08/26/2018 Niacin, Ywjyklv-bjz-fgj Reductase inhibitor Admission Admission Data Admission Date: 08/25/2018 Admission Time: 23:45 Admit Source: Emergency department Room #: D.2117 Procedure Procedure Types Cath Procedure Diagnostic Procedure [facility] w/Coronaries Sedation Charges Moderate Sedation up to 15 minutes PCI Procedure AMI/SVG/HEADSTART TEACHER PTCA or Stent AMI-BMS/ISABELLA Initial Procedure Description Procedure Date Procedure Date: 08/26/2018 Procedure Start Time: 6:51 Procedure End Time: 7:37 Procedure Staff Name Function Mikel Aleman MD Performing Physician Terell Smith RT Monitor Cortney Albright RT Scrub Huma Delacruz RN Nurse Procedure Data Cath Procedure Fluoroscopy Diagnostic fluoroscopy Total fluoroscopy Time: 8.3 time: 8.3 min min Diagnostic fluoroscopy Total fluoroscopy dose: dose: 2569 mGy 2569 mGy Contrast Material Contrast Material Type Amount (ml) Isovue 300 174 Entry Location Entry Primary Successful Side Size Upsize Upsize Entry Closure Succes sful Closure Location (Fr) 1 (Fr) 2 (Fr) Remarks Device Remarks Femoral Right 5 Fr Exoseal artery Estimated blood loss: 10 ml Diagnostic catheters Device Type Used For End Catheter Placement MULTIPACK JL 4.0 5Fr Procedure catheter MULTIPACK 3DRC 5Fr Procedure catheter MULTIPACK Pigtail 5 Fr Procedure catheter Procedure Complications No complications Procedure Medications Medication Administration Route Dosage Oxygen etCO2 Nasal cannula 2 l/min Lidocaine 2% added to field 20 Heparin Flush Bag added to field 2 bags (1000units/500ml NS) 0.9% NaCl I.V. 100 ml/hr Versed I.V. 1 mg Fentanyl I.V. 50 mcg Fentanyl I.V. 50 mcg Heparin Drip 1000 units/hr (05998bceaj/250 D5W) Versed I.V. 1 mg Heparin Bolus I.V. 9500 units Integrilin (Bolus I.V. 8.5 ml 2mg/ml) Versed I.V. 0.5 mg Plavix P.O. 600 mg Hemodynamics Rest Heart Rate: 92 (bpm) Pressure Samples Time Site Value (mmHg) Purpose Heart Use Rate(bpm) 6:58 LV 155/16,37 Snapshot 68 6:58 AO 148/85(111) Pullback 94 6:58 LV 160/14,32 Pullback 94 Gradients Valve Time Site 1 Site 2 Mean SEP/DFP Peak To Heart Use (mmHg) (sec/min) Peak Rate (mmHg) (bpm) Aortic 6:58 LV AO 16 24 12 94 160/14,32 148/85(111) Calculations Valve P-P Mean Valve Index Valve Source Name Gradient Area Flow (cm2) Aortic 12 16 12 16 Snapshots Pre Cath Intra NCS Post Cath Vital Signs Time Heart Resp SPO2 etCO2 NIBP (mmHg) Rhythm Pain Sedation Rate (ipm) (%) (mmHg) Status Level (bpm) 6:43:42 90 31 93 31.5 153/93(114) NSR 3 (11) , 10(A) Tolerable 6:48:03 89 33 93 32.3 147/94(114) NSR 3 (11) , 10(A) Tolerable 6:52:16 89 17 93 29.2 143/95(111) NSR 3 (11) , 10(A) Tolerable 6:56:32 88 25 93 30 136/89(118) NSR 0 (11) , 10(A) No pain 7:00:49 90 15 93 30 142/90(112) NSR 0 (11) , 10(A) No pain 7:05:07 92 12 91 0 138/92(121) NSR 0 (11) , 10(A) No pain 7:09:23 93 12 92 0 147/88(121) NSR 0 (11) , 10(A) No pain 7:13:45 91 16 92 21.8 136/83(108) NSR 0 (11) , 10(A) No pain 7:19:00 93 14 92 0 136/80(116) NSR 0 (11) , 10(A) No pain 7:23:16 90 13 91 0 135/83(121) NSR 0 (11) , 10(A) No pain 7:27:28 89 13 93 0 135/88(114) NSR 0 (11) , 10(A) No pain 7:31:38 89 13 93 36.8 136/85(123) NSR 0 (11) , 10(A) No pain Medications Time Medication Route Dose Verified Delivered Reason Notes Effectiveness by by 6:35:31 Heparin Drip I.V. drip- 1000 Mikel Buffie (43516kmfwk/250 discontinued units/hr Ash Delacruz RN D5W) 6:43:19 Oxygen etCO2 Nasal 2 l/min Mikel Buffie used for cannula Ash Delacruz RN procedure 6:43:26 Lidocaine 2% added to 20ml Mikel Mikel for local field vial Ash Aleman MD anesthetic 6:43:32 Heparin Flush added to 2 bags Mikel Mikel used for Bag field Ash Aleman MD procedure (1000units/500ml NS) 6:43:42 0.9% NaCl I.V. 100 Mikel Buffie Per physician ml/hr Ash Delacruz RN 6:51:13 Versed I.V. 1 mg Mikel Buffie for sedation Ash Delacruz RN 6:51:21 Fentanyl I.V. 50 mcg Mikel Buffie for sedation Ash Delacruz RN 6:54:07 Fentanyl I.V. 50 mcg Mikel Buffie for sedation Ash Delacruz RN 6:59:04 Versed I.V. 1 mg Mikel Buffie for sedation Ash Delacruz RN 7:01:01 Heparin Bolus I.V. 9500 Mikel Buffie for VERIFIED units Ash Delacruz RN anticoagulation WITH DR ALEMAN 7:10:36 Integrilin I.V. 8.5 ml Mikel Finn Per physician WASTED (Bolus 2mg/ml) Ash Delacruz RN 1.5 ML OF VIAL 7:13:02 Versed I.V. 0.5 mg Mikel Finn for sedation Ash Delacruz RN 7:21:28 Plavix P.O. 600 mg Mikelzain Finn for Ash Delacruz RN antiplatelet therapy Procedure Log Time Note 6:34:34 Informed consent obtained and on chart 6:34:37 Admit Source: Emergency department 6:34:55 Diagnostic Cath status Emergency 6:34:56 Huma Delacruz RN sent for patient. Start room use. 6:34:57 Time tracking: Call back (After hours or weekends) 6:35:01 Plan of Care:Hemodynamics will remain stable., Cardiac rhythm will remain stable., Comfort level will be maintained., Respiratory function will remain adequate., Patient/ family verbilizes understanding of procedure., Procedure tolerated without complication., Recovers from procedure without complications.. 6:35:31 Heparin Drip (21089enqkn/250 D5W) 1000 units/hr I.V. drip- discontinued was administered by Huma Delacruz RN; ; 6:37:36 Patient received from Med II to CCL 1 Alert and oriented. Tansferred to table in Supine position. 6:37:38 Warm blankets applied, and usman hugger turned on for patient comfort. 6:37:38 Correct patient and procedure confirmed by team. 6:37:39 ECG and BP/O2 sat monitors applied to patient. 6:37:40 Pre-procedure instructions explained to patient. 6:37:40 Pre-op teaching completed and patient verbalized understanding. 6:42:29 Vital chart was started 6:43:19 Oxygen 2 l/min etCO2 Nasal cannula was administered by Huma Delacruz RN; used for procedure; 6:43:26 Lidocaine 2% 20ml vial added to field was administered by Mikel Aleman MD; for local anesthetic; 6:43:32 Heparin Flush Bag (1000units/500ml NS) 2 bags added to field was administered by Mikel Aleman MD; used for procedure; 6:43:42 0.9% NaCl 100 ml/hr I.V. was administered by Huma Delacruz RN; Per physician; 6:48:15 Baseline sample Acquired. 6:48:20 Rhythm: sinus rhythm , w/ ST elevation 6:48:21 Full Disclosure recording started 6:48:27 H&P Date Dictated: 08/26/2018 Within 30 days and on chart.. 6:48:29 Family in patients room. 6:48:30 Patient NPO since Midnight. 6:48:50 Patient allergic to Other allergyNiacin, Qhjxnzh-kpb-uhf Reductase inhibitor 6:48:53 Is the patient allergic to Iodine/contrast media? No. 6:48:57 Is patient on blood thinner?Yes 6:49:00 ACC The patient was administered the following blood thiners within the last 24 hours: ACCHeparin 6:49:11 Patient diabetic? Yes. 6:49:14 If diabetic: On Metformin? Yes 6:49:18 If on Metformin: Last Dose? 08/25/2018 6:49:21 Previous problem with sedation/anesthesia? No ? 6:49:23 Snore? Yes 6:49:24 Sleep apnea? Yes 6:49:25 Deviated septum? No 6:49:27 Opens mouth fully? Yes 6:49:28 Sticks out tongue? Yes 6:49:34 Airway obstruction? No ? 6:49:39 Dentures? Yes in tight 6:49:53 Pre procedure: right dorsailis pedis pulse 2+ Normal; easily identifiable; not easily obliterated 6:49:55 Patient pain scale 3/10 chest pain. 6:50:08 IV patent on arrival in right hand with 0.9% NaCl at KVO. 6:50:11 Lab results completed and on chart. 6:50:13 Right groin area was prepped with chlora-prep and draped in sterile fashion 6:50:13 Alarms reviewed by R. N. 6:50:14 Sharps counted by scrub and verified by R.N. 6:50:20 SHEATH 6FR Christopher (WZY752) opened to sterile field. 6:50:21 Use device set Femoral Dx 6:50:22 ACIST Syringe (31096) opened to sterile field. 6:50:22 Bag Decanter (2002S) opened to sterile field. 6:50:22 Medline Cath Pack ([id number]) opened to sterile field. 6:50:23 ACIST Hand Control (97133) opened to sterile field. 6:50:24 ACIST Manifold (75641) opened to sterile field. 6:50:25 Tegaderm 4 x 4 (1626W) opened to sterile field. 6:50:27 DIAGNOSTIC WIRE .035 260cm J wire (451889) opened to sterile field. 6:50:27 DIAGNOSTIC Multipack 5Fr catheter set (SX0668) opened to sterile field. 6:50:33 Physician arrived 6:50:33 --------ALL STOP TIME OUT------ 6:50:33 Final Timeout: patient, procedure, and site verified with staff and physician. All members of the team are in agreement. 6:50:35 Right groin site verified by team. 6:50:37 Maximum allowable Isovue 300 dose 300ml. Physician notified. (300ml for normal creatinines. For patients with creatinine of 1.7 or higher multiply weight(kg) x 5 divided by creatinine.) 6:50:41 Fire Safety Assessment: A--An alcohol-based skin anteseptic being used preoperatively., C--Open oxygen or nitrous oxide is being used., D--An ESU, laser, or fiber-optic light is being used. 6:50:43 Physical assessment completed. ASA score P 3 - A patient with severe systemic disease as per Mikel Aleman MD. 6:50:46 Sedation plan: IV Moderate Sedation Medication:Versed, Fentanyl 6:50:54 TUBING High Pressure Extension Tubing (Ash) ([id number]) opened to sterile field. 6:51:13 Versed 1 mg I.V. was administered by Huma Delacruz RN; for sedation; 6:51:21 Fentanyl 50 mcg I.V. was administered by Huma Delacruz RN; for sedation; 6:51:54 Procedure started. 6:51:56 Local anesthetic to right femoral artery with Lidocaine 2% by Mikel Aleman MD.INITIAL ACCESS ONLY 6:52:45 A 5 Fr sheath was inserted into the Right Femoral artery 6:53:35 Zero performed for pressure channel P1 6:54:07 Fentanyl 50 mcg I.V. was administered by Huma Delacruz RN; for sedation; 6:54:51 A MULTIPACK JL 4.0 5Fr catheter was advanced over the wire and used for Procedure. 6:55:16 LCA angiography performed. 6:56:04 Catheter exchanged over wire. 6:56:09 A MULTIPACK 3DRC 5Fr catheter was advanced over the wire and used for Procedure. 6:56:51 RCA angiography performed. 6:57:36 Catheter exchanged over wire. 6:57:40 A MULTIPACK Pigtail 5 Fr catheter was advanced over the wire and used for Procedure. 6:58:33 LV gram done using CASILLAS 6:58:35 Injector settings: Ml/sec: 10, Volume: 20, 6:58:36 LV hemodynamics recorded. 6:58:40 EF : 55 % 6:58:59 Catheter removed. 6:59:04 Versed 1 mg I.V. was administered by Huma Delacruz RN; for sedation; 6:59:51 INFLATOR Merit BasixCompak (HL7199) opened to sterile field. 7:00:01 BMW 300cm Tenafly 2 J wire ([id number]) opened to sterile field. 7:00:01 GUIDE 6FR XBLAD 3.5 catheter ([id number]) opened to sterile field. 7:01:01 Heparin Bolus 9500 units I.V. was administered by Huma Delacruz RN; for anticoagulation; VERIFIED WITH DR ALEMAN 7:01:06 6 Fr xblad 3.5 guide catheter was inserted over the wire 7:01:11 BMW wire advanced. 7:02:11 Wire advanced across lesion. 7:05:48 Inflate balloon Inflation number: 1 A EMERGE OTW 2.0 x 15 balloon ([id number]) was prepped and advanced across the Dist LAD, then inflated to 10 DAVON for 0:10 (min:sec). 7:06:58 Inflation number: 2 The EMERGE OTW 2.0 x 15 balloon ([id number]) was reinflated across the Dist LAD, to 10 DAVON for 0:10 (min:sec). 7:10:36 Integrilin (Bolus 2mg/ml) 8.5 ml I.V. was administered by Huma Delacruz RN; Per physician; WASTED 1.5 ML OF VIAL 7:11:24 Balloon removed over the wire. 7:13:02 Versed 0.5 mg I.V. was administered by Huma Delacruz RN; for sedation; 7:13:13 Place stent Inflation Number: 3 A LARS RX 2.0 x 15 stent ([id number]) was prepped and advanced across the Dist LAD. The stent was deployed at 11 DAVON for 0:10 (min:sec). 7:15:39 Stent catheter was removed intact over wire. 7:18:17 Place stent Inflation Number: 1 A LARS OTW 3.0 x 18 stent ([id number]) was prepped and advanced across the Prox LAD. The stent was deployed at 14 DAVON for 0:10 (min:sec). 7:18:45 Stent catheter was removed intact over wire. 7:18:45 Wire removed. 7:18:46 Guide catheter removed. 7:18:54 EXOSEAL 6Fr (EX600) opened to sterile field. 7:19:03 Sheath removed intact; hemostasis achieved with Exoseal to the Right Femoral artery. 7:19:06 Procedure ended.(Physican Out) 7:20:01 Fluoroscopy time 08.30 minutes. 7:20:09 Flurop Dose total: 2569 7:20:09 Fluoroscopy dose: 2569 mGy 7:20:14 Contrast amount:Isovue 300 174ml. 7:20:16 Sharps counted by scrub and verified by R.N. 7:21:08 Insertion/operative site no bleeding no hematoma. 7:21:11 Post-op/insertion site Right Femoral artery dressed using a 4 x 4 and Tegaderm. 7:21:15 Post right femoral artery:stable, soft, clean and dry 7:21:25 Post Procedure Pulses reassessed and unchanged 7:21:28 Plavix 600 mg P.O. was administered by Huma Delacruz RN; for antiplatelet therapy; 7:21:28 Post-procedure physical assessment completed. ASA score P 3 - A patient with severe systemic disease as per Mikel Aleman MD. 7:22:03 Post procedure rhythm: unchanged. 7:22:10 Estimated blood loss: 10 ml 7:22:12 Post procedure instruction explained to patient.Patient verbalizes understanding. 7:22:12 Patient needs reinforcement of post procedure teaching. 7:23:57 Procedure type changed to Cath procedure, Diagnostic procedure, LHC, LHC w/Coronaries, Sedation Charges, Moderate Sedation up to 15 minutes, PCI procedure, AMI/SVG/HEADSTART TEACHER PTCA or Stent, AMI-BMS/ISABELLA Initial 7:30:25 Procedure and supply charges have been captured, reviewed, submitted and are correct. 7:30:28 Procedure Complication : No complications 7:30:54 Vital chart was stopped 7:30:55 See physician's report for complete and final results. 7:37:02 Report given to ICU. 7:37:05 Patient transfered to ICU with Stretcher. 7:37:07 Procedure ended. 7:37:07 Full Disclosure recording stopped 7:37:11 End room use (Document Last) Intervention Summary Intervention Notes Time ActionType Lesion and Equipment Used Action# Pressure Duration Attributes 7:05:48 Inflate Dist LAD EMERGE OTW 2.0 1 10 00:10 balloon x 15 balloon ([id number]) 7:06:58 Reinflate Dist LAD EMERGE OTW 2.0 2 10 00:10 balloon x 15 balloon ([id number]) 7:13:13 Place stent Dist LAD LARS RX 2.0 x 3 11 00:10 15 stent ([id number]) 7:18:17 Place stent Prox LAD LARS OTW 3.0 x 1 14 00:10 18 stent ([id number]) Device Usage Item Name Manufacture Quantity Catalog Number Hospital Part Current M inimal Lot# / Charge Number Stock Stock Serial# Code ACIST Syringe Acist 1 89502 073436 485414 097925 2 0 (14668) Medical Systems Inc Bag Decanter Microtek 1 2001S 177234 60421 167920 5 (2001S) Medical Inc. Medline Cath Medline 1 [id number] 939993 11541 147655 5 Pack ([id number]) ACIST Hand Acist 1 89204 499211 094824 626091 5 Control Medical (01182) Systems Inc ACIST Manifold Acist 1 07212 880308 545102 803379 5 (70081) Medical Systems Inc Tegaderm 4 x 4 3M 1 1626W 021529 326088 457798 5 (1626W) DIAGNOSTIC St Teddy 1 229607 020061 557635 915339 3 0 WIRE .035 260cm J wire (139148) DIAGNOSTIC Cardinal 1 NE8797 999671 46880 139625 3 0 Multipack 5Fr Health catheter set ([id number]) MULTIPACK JL Cardinal 1 558774 5 4.0 5Fr Health catheter MULTIPACK 3DRC Cardinal 1 544931 5 5Fr catheter Health MULTIPACK Cardinal 1 206769 5 Pigtail 5 Fr Health catheter INFLATOR Merit Merit 1 SW4308 924849 449226 344666 1 5 [facility] (CO0229) BMW 300cm Cheng 1 [id number] 677615 225167 250344 5 Tenafly 2 J Vascular wire (0257929O) GUIDE 6FR Cardinal 1 [id number] 276489 619392 161092 1 0 XBLAD 3.5 Health catheter ([id number]) EMERGE OTW 2.0 [place] 1 [id number] 453326 053523 924935 5 [id number] x 15 balloon Scientific ([id number]) LARS RX 2.0 x Medtronic 1 [id number] 579483 1362323 835290 5 [id number] 15 stent ([id number]) LARS OTW 3.0 x Medtronic 1 [id number] 454309 4327522 741554 5 [id number] 18 stent ([id number]) EXOSEAL 6Fr Cardinal 1 EX600 435484 580403 001797 1 0 (EX600) Health TUBING High Merit 1 [id number] 118494 53269 005853 1 0 Pressure Medical Extension Tubing (Aleman) (FC1349A) SHEATH 6FR Terumo 1 [id number] 654319 293540 291635 4 0 Christopher ([id number]) Signature Audit [place] Stage Time Signature Unsigned Intra-Procedure 08/26/2018 Terell Smith 7:38:40 AM RT(R) Signatures Monitor : Terell Smith RT Signature : Date : Time : [facility] [address] [place] [address]
--- NOTE | ~2018-08-25 | HEMODYNAMI ---
PATIENT:JILLIAN SINCLAIR MEDICAL RECORD: [id number] : 58 LOCATION:[facility] D.2315 [facility]# [id number] ADMISSION DATE: 08/26/18 Generatedon:08/27/201813:08 Patient name: JILLIAN SINCLAIR Patient #: [id number] SSN: DO B: 1960 Date of study: 08/27/2018 Page: Of Hemodynamic Procedure Report Patient Data Patient Demographics Procedure consent was obtained First Name: JILLIAN Gender: Male Last Name: DOTTIE : 1960 Middle Initial: KEN Age: 57 year(s) Patient #: [id number] Race: Unknown Additional ID: [id number] Contact details [address]: [address] [place] [address] cutoff State: [place] City: [place] Zip code: [address] Past Medical History Allergies Allergen Reaction Date Comments Reported Other allergy 01/22/2018 Niacin, Lipitor Statins 01/27/2018 Other allergy 08/26/2018 Niacin, [id number] Reductase inhibitor Other allergy 08/27/2018 statins, niacin Admission Admission Data Admission Date: 08/26/2018 Admission Time: 11:23 Admit Source: Other Room #: D.[facility]5 Lab Results Lab Result Date: 08/27/2018 Lab Result Time: 4:00 Biochemistry Name Units Result Min Max BUN mg/dl 12 --(-*--)-- 7 18 Creatinine mg/dl 0.6 --(*---)-- 0.6 1.3 CBC Name Units Result Min Max Hematocrit % 50.7 --(--*-)-- 42 54 Hemoglobin g/dl 17 --(---*)-- 13.5 17.5 Procedure Procedure Types Cath Procedure PCI Procedure Coronary Stent Coronary Stent Initial Procedure Description Procedure Date Procedure Date: 08/27/2018 Procedure Start Time: 12:58 Procedure End Time: 13:08 Procedure Staff Name Function Lamont Brand MD Performing Physician Meri Loera RN Nurse Kaela Swan RT Scrub Gagan Dove RT Monitor Procedure Data Cath Procedure Fluoroscopy Diagnostic fluoroscopy Total fluoroscopy Time: 1 time: 1 min min Diagnostic fluoroscopy Total fluoroscopy dose: 350 dose: 350 mGy mGy Contrast Material Contrast Material Type Amount (ml) Isovue 370 32 Entry Location Entry Primary Successful Side Size Upsize Upsize Entry Closure Succes sful Closure Location (Fr) 1 (Fr) 2 (Fr) Remarks Device Remarks Femoral Left 6 Fr Exoseal artery Short Estimated blood loss: 10 ml Procedure Complications No complications Procedure Medications Medication Administration Route Dosage 0.9% NaCl I.V. 100 ml/hr Oxygen etCO2 Nasal cannula 2 l/min Lidocaine 2% added to field 20 Heparin Flush Bag added to field 2 bags (1000units/500ml NS) Versed I.V. 2 mg Fentanyl I.V. 50 mcg Heparin Bolus I.V. 5000 units Hemodynamics Rest HGB: 17 (g/dl) Heart Rate: 69 (bpm) Pressure Samples Time Site Value (mmHg) Purpose Heart Use Rate(bpm) 13:00 AO 105/68(86) Snapshot 87 Snapshots Pre Cath Intra NCS Post Cath Vital Signs Time Heart Resp SPO2 etCO2 NIBP (mmHg) Rhythm Pain Sedation Rate (ipm) (%) (mmHg) Status Level (bpm) 12:49:15 78 20 98 33.1 153/81(125) NSR 0 (11) 10(A) , No pain 12:53:27 77 18 97 29.3 145/86(114) NSR 0 (11) 9(A) , No pain 12:57:33 88 15 98 36.8 136/89(106) NSR 0 (11) 9(A) , No pain 13:02:30 84 14 98 27 135/88(116) NSR 0 (11) 9(A) , No pain 13:06:42 83 15 98 35.3 146/85(119) NSR 0 (11) 10(A) , No pain Medications Time Medication Route Dose Verified Delivered Reason Notes Effectiveness by by 12:50:34 0.9% NaCl I.V. 100 Lamont Meri used for ml/hr MarNarciso Loera procedure MD MORRIS 12:50:40 Oxygen etCO2 2 Lamont Kernsa used for Nasal l/min MarNarciso Loera procedure cannula MD MORRIS 12:50:46 Lidocaine 2% added 20ml Lamont Miguel for local to vial [facility] anesthetic field MD KOCH 12:50:50 Heparin Flush added 2 Lamont Miguel used for Bag to bags [facility] procedure (1000units/500ml field MD KOCH NS) 12:50:56 Versed I.V. 2 mg Lamont Kernsa for sedation St Narciso Loera MD RN 12:51:01 Fentanyl I.V. 50 Lamont Meri for sedation mcg St Narciso Loera MD RN 13:01:18 Heparin Bolus I.V. 5000 Lamont Jerez for verif ied units [facility] anticoagulation with Dr. KOCH RN [place] Procedure Log Time Note 12:15:34 Gagan Marreroley RT(R) sent for patient. Start room use. 12:21:59 Informed consent obtained and on chart 12:22:03 Admit Source: Other 12:22:28 Diagnostic Cath status Elective 12:22:33 Time tracking: Regular hours (M-F 7:00 - 5:00) 12:22:36 Plan of Care:Hemodynamics will remain stable., Cardiac rhythm will remain stable., Comfort level will be maintained., Respiratory function will remain adequate., Patient/ family verbilizes understanding of procedure., Procedure tolerated without complication., Recovers from procedure without complications.. 12:22:43 H&P Date Dictated: 08/26/2018 Within 30 days and on chart.. 12:44:24 Patient received from ICU to CCL 2 Alert and oriented. Tansferred to table in Supine position. 12:44:25 Warm blankets applied, and usman hugger turned on for patient comfort. 12:44:26 Correct patient and procedure confirmed by team. 12:44:27 ECG and BP/O2 sat monitors applied to patient. 12:44:28 Full Disclosure recording started 12:45:03 Pre-procedure instructions explained to patient. 12:45:04 Pre-op teaching completed and patient verbalized understanding. 12:45:06 Family unavailable. 12:45:07 Patient NPO since Midnight. 12:46:07 Patient allergic to Other allergystatins, niacin 12:46:09 Is the patient allergic to Iodine/contrast media? No. 12:46:10 Is patient on blood thinner?Yes 12:46:12 ACC The patient was administered the following blood thiners within the last 24 hours: ACCPlavix 12:46:14 Patient diabetic? Yes. 12:46:15 If diabetic: On Metformin? Yes 12:46:19 If on Metformin: Last Dose? 08/24/2018 12:46:21 Previous problem with sedation/anesthesia? No ? 12:46:23 Snore? Yes 12:46:23 Sleep apnea? Yes 12:46:24 Deviated septum? No 12:46:26 Opens mouth fully? Yes 12:46:26 Sticks out tongue? Yes 12:46:28 Airway obstruction? No ? 12:46:31 Dentures? No ? 12:46:33 Pre procedure: left dorsailis pedis pulse 2+ Normal; easily identifiable; not easily obliterated 12:46:41 Patient pain scale 1/10 chest pressure. 12:46:49 IV patent on arrival in right hand with 0.9% NaCl at [facility]. 12:47:20 Lab Result : BUN 12 mg/dl 12:47:20 Lab Result : Hemoglobin 17 g/dl 12:47:20 Lab Result : Creatinine 0.6 mg/dl 12:47:20 Lab Result : Hematocrit 50.7 % 12:47:22 Lab results completed and on chart. 12:47:26 Left groin area was prepped with chlora-prep and draped in sterile fashion 12:47:27 Alarms reviewed by R. N. 12:47:28 Sharps counted by scrub and verified by R.N. 12:47:32 ACIST Syringe (99588) opened to sterile field. 12:47:32 Bag Decanter (2002) opened to sterile field. 12:47:33 Medline Cath Pack ([id number]) opened to sterile field. 12:47:33 ACIST Hand Control (30273) opened to sterile field. 12:47:34 ACIST Manifold (06964) opened to sterile field. 12:47:35 Tegaderm 4 x 4 (1626W) opened to sterile field. 12:47:36 DIAGNOSTIC WIRE .035 260cm J wire (600580) opened to sterile field. 12:47:54 SHEATH 6FR Cedar (HLU657) opened to sterile field. 12:48:01 WHISPER 300cm guide wire ([id number]) opened to sterile field. 12:48:01 INFLATOR Merit BasixCompak (SJ0735) opened to sterile field. 12:48:06 Vital chart was started 12:48:09 Baseline sample Acquired. 12:48:14 Rhythm: sinus rhythm 12:48:19 Physician arrived 12:48:19 --------ALL STOP TIME OUT------ 12:48:19 Final Timeout: patient, procedure, and site verified with staff and physician. All members of the team are in agreement. 12:48:21 Left groin site verified by team. 12:48:23 Maximum allowable Isovue 370 dose 300ml. Physician notified. (300ml for normal creatinines. For patients with creatinine of 1.7 or higher multiply weight(kg) x 5 divided by creatinine.) 12:48:26 Fire Safety Assessment: A--An alcohol-based skin anteseptic being used preoperatively., C--Open oxygen or nitrous oxide is being used., D--An ESU, laser, or fiber-optic light is being used. 12:48:29 Physical assessment completed. ASA score P 2 - A patient with mild systemic disease as per Lamont Brand MD. 12:48:31 Sedation plan: IV Moderate Sedation Medication:Versed, Fentanyl 12:50:34 0.9% NaCl 100 ml/hr I.V. was administered by Meri Loera RN; used for procedure; 12:50:40 Oxygen 2 l/min etCO2 Nasal cannula was administered by Meri Loera RN; used for procedure; 12:50:46 Lidocaine 2% 20ml vial added to field was administered by Lamont Brand MD; for local anesthetic; 12:50:50 Heparin Flush Bag (1000units/500ml NS) 2 bags added to field was administered by Lamont Brand MD; used for procedure; 12:50:56 Versed 2 mg I.V. was administered by Meri Loera RN; for sedation; 12:51:01 Fentanyl 50 mcg I.V. was administered by Meri Loera RN; for sedation; 12:57:06 Use device set Radial Dx or PCI 12:57:08 Use device set MAR PCI 12:57:14 Tegaderm 4 x 4 (1626W) opened to sterile field. 12:57:15 ACIST Manifold (36449) opened to sterile field. 12:57:16 ACIST Hand Control (36585) opened to sterile field. 12:57:17 ACIST Syringe (06419) opened to sterile field. 12:57:17 Medline Cath Pack ([id number]) opened to sterile field. 12:57:18 Bag Decanter (2002S) opened to sterile field. 12:57:18 DIAGNOSTIC WIRE .035 260cm J wire (467094) opened to sterile field. 12:57:22 SHEATH 6FR Cedar (REB735) opened to sterile field. 12:57:25 INFLATOR Merit BasixCompak (RS9101) opened to sterile field. 12:57:31 WHISPER 300cm guide wire ([id number]) opened to sterile field. 12:57:44 GUIDE 6FR EBU 3.5 catheter ([id number]) opened to sterile field. 12:58:26 Procedure started. 12:58:29 Local anesthetic to left femerol artery with Lidocaine 2% by Lamont Brand MD.INITIAL ACCESS ONLY 12:59:05 A 6 Fr Short sheath was inserted into the Left Femoral artery 12:59:38 6 Fr EBU 3.5 guide catheter was inserted over the wire 13:00:43 Whisper wire advanced. 13:01:18 Heparin Bolus 5000 units I.V. was administered by Meri Loera RN; for anticoagulation; verified with Dr. Winters 13:02:50 Wire advanced across lesion. 13:03:30 Place stent Inflation Number: 1 A LARS OTW 3.5 x 18 stent ([id number]) was prepped and advanced across the Mid CX. The stent was deployed at 14 DAVON for 0:30 (min:sec). 13:04:07 EXOSEAL 6Fr (EX600) opened to sterile field. 13:04:21 Stent catheter was removed intact over wire. 13:04:22 Wire removed. 13:04:23 Guide catheter removed. 13:04:31 Sheath removed intact; hemostasis achieved with Exoseal to the Left Femoral artery. 13:04:33 Procedure ended.(Physican Out) 13:06:43 Fluoroscopy time 01.00 minutes. 13:06:46 Fluoroscopy dose: 350 mGy 13:06:46 Flurop Dose total: 350 13:06:51 Contrast amount:Isovue 370 32ml. 13:07:09 Sharps counted by scrub and verified by R.N. 13:07:10 Insertion/operative site no bleeding no hematoma. 13:07:15 Post-op/insertion site Left Femoral artery dressed using a 4 x 4 and Tegaderm. 13:07:16 Post Procedure Pulses reassessed and unchanged 13:07:19 Post-procedure physical assessment completed. ASA score P 2 - A patient with mild systemic disease as per Lamont Brand MD. 13:07:22 Post procedure rhythm: unchanged. 13:07:24 Estimated blood loss: 10 ml 13:07:27 Post procedure instruction explained to patient.Patient verbalizes understanding. 13:07:27 Patient needs reinforcement of post procedure teaching. 13:07:38 Procedure and supply charges have been captured, reviewed, submitted and are correct. 13:07:43 Procedure Complication : No complications 13:07:47 Vital chart was stopped 13:07:48 See physician's report for complete and final results. 13:07:59 Report given to ICU. 13:08:02 Patient transfered to ICU with Bed. 13:08:05 Procedure ended. 13:08:05 Full Disclosure recording stopped 13:08:12 End room use (Document Last) Intervention Summary Intervention Notes Time ActionType Lesion and Equipment Action# Pressure Duration Attributes Used 13:03:30 Place stent Mid CX LARS OTW 3.5 1 14 00:30 x 18 stent ([id number]) Device Usage Item Name Manufacture Quantity Catalog Hospital Part Current Mini mal Lot# / Number Charge Number Stock Stock Serial# Code ACIST Syringe Acist 2 73277 192961 949310 478640 20 (58656) Medical Systems Inc Bag Decanter Microtek 2 2001S 844300 38206 280103 5 (2001S) Medical Inc. Medline Cath Medline 2 [id number] 818184 99731 151736 5 Pack ([id number]) ACIST Hand Acist 2 27074 431205 890093 907539 5 Control Medical (04959) Systems Inc ACIST Acist 2 69986 171668 268386 974081 5 Manifold Medical (23768) Systems Inc Tegaderm 4 x 3M 2 1626W 639292 061788 950832 5 4 (1626W) DIAGNOSTIC St Teddy 2 907560 962578 730062 051497 30 WIRE .035 260cm J wire (207011) SHEATH 6FR Terumo 2 CDN504 851544 828390 752254 40 Cedar (UQQ615) WHISPER 300cm Cheng 2 [id number] 375404 945349 927555 5 guide wire Vascular (6507026FM) INFLATOR [facility] 2 UM9284 191195 688699 507708 15 [facility] Medical BasixCompak (LD3547) GUIDE 6FR EBU Medtronic 1 [id number] 079977 39517 698196 3 3.5 catheter (UV4OLU10) LARS OTW 3.5 Medtronic 1 [id number] 080416 8826568 259464 5 [id number] x 18 stent ([id number]) EXOSEAL 6Fr Cardinal 1 EX600 583119 643355 013351 10 (EX600) Health Signature Audit [place] Stage Time Signature Unsigned Intra-Procedure 08/27/2018 Gagan Dove 1:08:34 PM RT(R) Signatures Monitor : Gagan Dove RT Signature : Date : Time : [place] [address] [place], [place]ANG[place] [address]
[2018-08-25 22:20] VITALS: BP 135/79
[2018-08-25 22:23] LABS: BASOPHILS 0.3 % (0-2); HEMATOCRIT 49.4 % (42.0-54.0); HEMOGLOBIN 16.9 g/dL (13.5-17.5); IMMATURE GRANULOCYTES 0.2 % (0-5); LYMPHOCYTES 31.3 % (15-50); MCH 29.6 pg (26.0-34.0); MCHC 34.2 g/dL (31.0-37.0); MCV 86.7 fL (80.0-100.0); MEAN PLATELET VOLUME 10.2 fL (7.4-10.4); MONOCYTES 7.9 % (2-11); NEUTROPHILS 58.3 % (40-80); PLATELET COUNT 221 10x3/uL (130-400); RDW 14.3 % (11.5-14.5); WBC 11.1 10x3/uL (4.8-10.8)
--- NOTE | 2018-08-25 22:26 | NUR ---
PT GIVEN NITRO X 2 WITH RELIEF AFTER SECOND NITRO.
[2018-08-25 22:33] LABS: APTT 25.1 SECONDS (22.8-39.4); INR 1.05 (0.85-1.17); PROTIME 13.2 SECONDS (11.6-15.0)
[2018-08-25 22:41] LABS: ALBUMIN 3.5 g/dL (3.4-5.0); ALKALINE PHOSPHATASE 108 U/L (46-116); ALT (SGPT) 24 U/L (10-68); BILIRUBIN - TOTAL 0.38 mg/dL (0.2-1.3); CALC OSMOLALITY 282 mosm/kg (275-300); CALCIUM 8.8 mg/dL (8.5-10.1); CARBON DIOXIDE 23.2 mmol/L (21.0-32.0); CHLORIDE - SERUM 99 mmol/L (98-107); CREATININE - SERUM 0.9 mg/dL (0.6-1.3); PROTEIN - SERUM 7.5 g/dL (6.4-8.2); SODIUM 136 mmol/L (136-145); UREA NITROGEN 15 mg/dL (7-18); eGFR NON AFRICAN AMERICAN > 90 mL/min (90-120)
[2018-08-25 22:45] LABS: GLUCOSE 277 mg/dL (74-106)
[2018-08-25 22:53] LABS: CKMB 3.6 U/L (0.0-3.6); CREATINE KINASE 208 UL (21-232); MAGNESIUM - SERUM 1.7 mg/dL (1.8-2.4); TROPONIN-I < 0.017 ng/mL (0.000-0.060)
[2018-08-25 23:26] VITALS: BP 114/75
[2018-08-26] VITALS (23 sets, daily range): BP systolic 112–161; BP diastolic 71–98; Ht 172.7 cm; Wt 97.7 kg
--- NOTE | 2018-08-26 02:30 | NUR ---
PATIENT C/O CHEST PAIN. VITALS BP 158/78 HR 85 R 20 T 98.0 PATIENT GIVEN 3 DOSES OF NITRO AND 4 MG OF MORPHINE. EKG COMPLETED. PATIENT STATED HE HAD SOME RELIEVE. VITALS TAKEN AGAIN. BP 132/72 HR 82 R 20. PATIENT STATES HE IS ANXIOUS THAT HE HAD A HEART ATTACK IN JANUARY.
--- NOTE | 2018-08-26 02:46 | NUR ---
PATIENT NOW STATES HE IS NO LONGER HAVING CHEST PAIN. ALTHOUGH HE IS WORRIED SOMETHING IS WRONG.
[2018-08-26 03:18] LABS: BASOPHILS 0.4 % (0-2); EOSINOPHILS 2.5 % (0-7); HEMATOCRIT 50.8 % (42.0-54.0); HEMOGLOBIN 17.1 g/dL (13.5-17.5); IMMATURE GRANULOCYTES 0.3 % (0-5); LYMPHOCYTES 37.6 % (15-50); MCH 29.2 pg (26.0-34.0); MCHC 33.7 g/dL (31.0-37.0); MCV 86.8 fL (80.0-100.0); MEAN PLATELET VOLUME 9.8 fL (7.4-10.4); MONOCYTES 8.4 % (2-11); NEUTROPHILS 50.8 % (40-80); PLATELET COUNT 209 10x3/uL (130-400); RBC 5.85 10x6/uL (4.20-6.10); RDW 14.2 % (11.5-14.5); WBC 11.6 10x3/uL (4.8-10.8)
[2018-08-26 03:39] LABS: ALBUMIN 3.7 g/dL (3.4-5.0); ALKALINE PHOSPHATASE 94 U/L (46-116); ALT (SGPT) 23 U/L (10-68); BILIRUBIN - TOTAL 0.59 mg/dL (0.2-1.3); CALCIUM 8.5 mg/dL (8.5-10.1); CARBON DIOXIDE 27.9 mmol/L (21.0-32.0); CHLORIDE - SERUM 101 mmol/L (98-107); CKMB 3.9 U/L (0.0-3.6); CREATINE KINASE 197 UL (21-232); CREATININE - SERUM 0.8 mg/dL (0.6-1.3); PROTEIN - SERUM 7.8 g/dL (6.4-8.2); SODIUM 138 mmol/L (136-145); UREA NITROGEN 14 mg/dL (7-18); eGFR NON AFRICAN AMERICAN > 90 mL/min (90-120)
[2018-08-26 03:40] LABS: CALC OSMOLALITY 279 mosm/kg (275-300); GLUCOSE 147 mg/dL (74-106); TROPONIN-I 0.017 ng/mL (0.000-0.060)
--- NOTE | 2018-08-26 05:17 | NUR ---
SPOKE TO DOCTOR ACOSTA REGARDING ELEVATED ST WAVE. DR ACOSTA ORDERED A 5,000 UNIT HEPARIN BOLUS AND A HEPARIN GTT AT 1000 UNITS. READ BACK ORDER TO VERIFY.
[2018-08-26 05:20] LABS: APTT 24.6 SECONDS (22.8-39.4); INR 1.01 (0.85-1.17); PROTIME 12.8 SECONDS (11.6-15.0)
--- NOTE | 2018-08-26 07:50 | NUR ---
REC'D VIA BED S/P CARDIAC CATH W/ STENTS X2 TO LAD. AFVSS. RIGHT GROIN DRSG C/D/I W/O EVIDENCE BLEEDING OR HEMATOMA. RT DP PULSE 2+. INSTRUCTED S/S TO REPORT TO STAFF. DOES C/O SUBSTERNAL CP DESCRIBES CONSTANT DULL THROBB SIMILAR TO PAIN FROM EARLIER BUT "IT MIGHT BE MY REFLUX TOO." PLACED IN REVERSE [place]. AWARE- AWAITING GI COCKTAIL FROM [place]. ASSESSED.
--- NOTE | 2018-08-26 07:51 | NUR ---
CALLED JIM SINCLAIR NOTIFIED HER PT BEING TRANSFERRED TO ROOM 2315 FROM [facility]
--- NOTE | 2018-08-26 08:05 | NUR ---
VSS, RT GROIN SITE UNCHANGED. SS CP PERSISTS.
--- NOTE | 2018-08-26 09:35 | NUR ---
STATES CP HAS "DISSIPATED" AT THIS TIME. RT GROIN SITE CHECK HAVE BEEN PERFORMED WITH VS AND REMAIN UNCHANGED.
--- NOTE | 2018-08-26 11:30 | NUR ---
REASSESSED, VSS. NOW STATES PAIN IS A CONSTANT NAG BUT MINIMAL. INSTRUCTED TO NOTIFY STAFF IF WORSENS.
[2018-08-26 11:50] LABS: CKMB 47.8 U/L (0.0-3.6)
[2018-08-26 11:51] LABS: CREATINE KINASE 452 UL (21-232)
[2018-08-26 11:52] LABS: TROPONIN-I 8.586 ng/mL (0.000-0.060)
--- NOTE | 2018-08-26 14:00 | NUR ---
VISITORS IN AND UPDATED. VSS.
--- NOTE | 2018-08-26 15:30 | NUR ---
REASSESSED W/O CHANGES. VSS. CHEST PAIN UNCHANGED.
[2018-08-26 17:38] LABS: CKMB 47.7 U/L (0.0-3.6); CREATINE KINASE 471 UL (21-232)
[2018-08-26 17:43] LABS: TROPONIN-I 14.615 ng/mL (0.000-0.060)
--- NOTE | 2018-08-26 18:10 | NUR ---
NORSO GIVEN FOR C/O TOOTH ACHE AFTER DR SNOWDEN NOTIFIED.
--- NOTE | 2018-08-26 19:00 | NUR ---
REPORT RECEIVED, CARE ASSUMED. PT IS RESTING IN BED ON THE PHONE AT THIS TIME. INITIAL ASSESSMENT COMPLETED, SEE FLOWSHEET FOR DETAILS. NO NEEDS VOICED AT THIS TIME. NO SIGNS OF ACUTE DISTRESS. WILL CONTINUE TO MONITOR.
--- NOTE | 2018-08-26 21:00 | NUR ---
PT IS RESTING IN BED WITH EYES CLOSED AT THIS TIME. NO SIGNS OF ACUTE DISTRESS. WILL CONTINUE TO MONITOR.
--- NOTE | 2018-08-26 23:00 | NUR ---
REASSESSMENT COMPLETED, SEE FLOWSHEET FOR DETAILS. PT IS RESTING IN BED WITH EYES CLOSED AT THIS TIME. NO SIGNS OF ACUTE DISTRESS. WILL CONTINUE TO MONITOR.
[2018-08-27] VITALS (15 sets, daily range): BP systolic 116–151; BP diastolic 76–99
--- NOTE | 2018-08-27 01:00 | NUR ---
PT IS LAYING IN BED WITH EYES CLOSED. VSS. NO NEEDS VOICED. NO SIGNS OF ACUTE DISTRESS. WILL CONTINUE TO MONITOR.
--- NOTE | 2018-08-27 03:00 | NUR ---
REASSESSMENT COMPLETED, SEE FLOWSHEET FOR DETAILS. PT IS LAYING IN BED WITH EYES CLOSED. NO SIGNS OF ACUTE DISTRESS. WILL CONTINUE TO MONITOR.
[2018-08-27 04:21] LABS: BASOPHILS 0.3 % (0-2); EOSINOPHILS 2.2 % (0-7); HEMATOCRIT 50.7 % (42.0-54.0); IMMATURE GRANULOCYTES 0.1 % (0-5); LYMPHOCYTES 23.6 % (15-50); MCH 29.2 pg (26.0-34.0); MCHC 33.5 g/dL (31.0-37.0); MCV 87.1 fL (80.0-100.0); MONOCYTES 7.5 % (2-11); NEUTROPHILS 66.3 % (40-80); PLATELET COUNT 202 10x3/uL (130-400); RBC 5.82 10x6/uL (4.20-6.10); RDW 14.2 % (11.5-14.5)
[2018-08-27 04:45] LABS: CALC OSMOLALITY 276 mosm/kg (275-300); CALCIUM 8.9 mg/dL (8.5-10.1); CARBON DIOXIDE 25.1 mmol/L (21.0-32.0); CHLORIDE - SERUM 102 mmol/L (98-107); CREATININE - SERUM 0.6 mg/dL (0.6-1.3); GLUCOSE 144 mg/dL (74-106); SODIUM 137 mmol/L (136-145); UREA NITROGEN 12 mg/dL (7-18); eGFR NON AFRICAN AMERICAN > 90 mL/min (90-120)
--- NOTE | 2018-08-27 05:00 | NUR ---
PT IS RESTING IN BED WITH EYES CLOSED AT THIS TIME. NO NEEDS NOTED. NO SIGNS OF ACUTE DISTRESS. WILL CONITNUE TO MONITOR.
--- NOTE | 2018-08-27 07:00 | NUR ---
SHIFT ASSESSMENT COMPLETED, PT CARE ASSUMED, MONITORS ON AND WORKING, VITALS STABLE, PT AWAKE AND ALERT, NO SIGNS/SYMPTOMS OF PAIN OR DISCOMFORT NOTED AT THIS TIME, CALL LIGHT WITHIN REACH WILL CONTINUE TO OBSERVE.
--- NOTE | 2018-08-27 09:00 | NUR ---
REC'D ORDERS FROM CARDIO TO OBTAIN CONSENT FOR OCCUPATIONAL THERAPY SPECIALIST PROCEDURE TODAY, DISCUSSED WITH PT, CONSENT OBTAINED. MONITORS ON AND WORKING, CALL LIGHT WITHIN REACH, WILL CONTINUE TO OBSERVE.
--- NOTE | 2018-08-27 11:00 | NUR ---
PT PRE OP FOR DUE DILIGENCE COORDINATOR, VITALS STABLE, NO SIGNS/SYMPTOMS OF PAIN OR DISCOMFORT NOTED AT THIS TIME, WILL CONTINUE TO OBSERVE.
--- NOTE | 2018-08-27 13:00 | NUR ---
PT IN BINDER CUTTER
--- NOTE | 2018-08-27 13:30 | NUR ---
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 MONITORS ON AND WORKING, VITALS STABLE, NO SIGNS/SYMPTOMS OF PAIN OR DISCOMFORT NOTED. PT AWAKE AND ALERT, CALL LIGHT WITHIN REACH, WILL CONTINUE TO OBSERVE.
--- NOTE | 2018-08-27 15:00 | NUR ---
NO CHANGES, SEE FLOW SHEET FOR FURTHER DETIALS, WILL CONTINUE TO OBSERVE.
[2018-08-27] MEDS ORDERED: PLAVIX75 MG PO (17:21)
--- NOTE | 2018-08-28 15:56 | MORECARE ---
CASE MANAGEMENT DISCHARGE SUMMARY PATIENT: JILLIAN SINCLAIR UNIT: [id number] ADM DATE: 08/26/18 AGE: 57 : 58 SEX: M ROOM/BED: D.2315 AUTHOR: KONRAD MAI PHYSICIAN: REFERRING PHYSICIAN: OLI SNOWDEN MD DATE OF SERVICE: 08/28/18 Discharge Plan Patient Name: JILLIAN SINCLAIR Facility: [facility]:[place] : 1960 Planned Disposition: Anticipated Discharge Date: Discharge Date: 08/27/2018 Expected LOS: Initial Reviewer: [email or web address] Initial Review Date: 08/26/2018 Generated: 08/28/18 4:55 pm Patient Name: JILLIAN SINCLAIR Page 05201 at 1556 All edits/amendments must be made on the electronic document DICTATION DATE: 08/28/18 1555 AIRCRAFT TOOL MAKER: ARACELI 08/28/18 1555 RPT#: [id number] DC DATE:08/27/18 STATUS: DIS IN [facility] [address] [place] [address] END OF REPORT
--- NOTE | 2018-08-31 13:26 | OP ---
PATIENT NAME: JILLIAN SINCLAIR MEDICAL RECORD: [id number] :58 LOCATION:.[facility] D.2315 ADMISSION DATE:08/26/18 SURGEON: YOLANDA MANUEL MD DATE OF OPERATION: 08/27/2018 PROCEDURE: PTCA and stent to the circumflex. DESCRIPTION OF PROCEDURE: After 6-Brazilian sheath was placed in the right femoral artery, EBU 3.5 guiding catheter provided good guide catheter support followed by 300 cm Whisper wire was placed across the area of end-stent restenosis. Stent deployed was a 3.5 x 18 mm Lacon drug-eluting stent up to 14 atmospheres. Final angiography shows excellent resolution of 80% stenosis, no significant residual. JOSHUA flow was 3 throughout the procedure. Sheath was closed with ExoSeal device. Heparin was used during the case. The patient was previously on Plavix. TRANSINT:[id number] Voice Confirmation ID: [id number] DOCUMENT ID: [id number] YOLANDA MANUEL MD at 1326 CC: [id number] DICTATION DATE: 08/27/18 1312 CORPORATE SAFETY COORDINATOR: 08/27/18 1522 DIS IN 08/27/[address] [facility] [address] [facility] [place] [address]
== END 2018-08-27 17:30 | disposition home or self-care (01) | DRG 247 ==
LOC: D.ER 21:59 → D.ICU 23:45 → OBSVTIME 23:45 → D.M2 23:45 → D.ICU 08-26 07:58
PROVIDERS: Family Medicine; Internal Medicine Cardiovascular Disease; ADMIT Internal Medicine Nephrology; ATTEND Internal Medicine Nephrology
PROC: B2151ZZ Fluoroscopy of Left Heart using Low Osmolar Contrast (ICD-10-PCS; 2018-08-26)
PROC: 4A023N7 Measurement of Cardiac Sampling and Pressure, Left Heart, Percutaneous Approach (ICD-10-PCS; 2018-08-26)
PROC: B2111ZZ Fluoroscopy of Multiple Coronary Arteries using Low Osmolar Contrast (ICD-10-PCS; principal; 2018-08-26 06:34)
PROC: 027034Z Dilation of Coronary Artery, One Artery with Drug-eluting Intraluminal Device, Percutaneous Approach (ICD-10-PCS; 2018-08-26 06:34)
DX: I25.110 Atherosclerotic heart disease of native coronary artery with unstable angina pectoris (principal); I24.9 Acute ischemic heart disease, unspecified; E78.5 Hyperlipidemia, unspecified; E11.9 Type 2 diabetes mellitus without complications; I48.91 Unspecified atrial fibrillation; G47.33 Obstructive sleep apnea (adult) (pediatric); K21.9 Gastro-esophageal reflux disease without esophagitis; E83.42 Hypomagnesemia

== ENCOUNTER 2019-01-12 13:47 | Inpatient (IN) | payer MEDICARE ==
[~2019-01-12] VITALS: Ht 172.7 cm; Wt 94.3 kg
[2019-01-12] VITALS (23 sets, daily range): BP systolic 118–141; BP diastolic 81–99; BMI 33.2
--- NOTE | ~2019-01-12 | HEMODYNAMI ---
PATIENT:JILLIAN SINCLAIR MEDICAL RECORD: [id number] : 58 [id number] ADMISSION DATE: 01/12/19 Generatedon:01/12/201915:21 Patient name: JILLIAN SINCLAIR Patient #: [id number] SSN: [id number] : 1960 Date of study: 01/12/2019 Page: Of Hemodynamic Procedure Report Patient Data Patient Demographics Procedure consent was obtained First Name: JILLIAN Gender: Male Last Name: DOTTIE : 1960 Middle Initial: KEN Age: 58 year(s) Patient #: [id number] Race: SSN: [id number] Additional ID: [id number] Contact details [address]: [address] [place] [address] [place] State: [place] City: [place] Zip code: [address] Past Medical History Allergies Allergen Reaction Date Comments Reported Other allergy 01/22/2018 Niacin, Lipitor Statins 01/27/2018 Other allergy 08/26/2018 Niacin, Ggkwwfq-nyi-xht Reductase inhibitor Other allergy 08/27/2018 statins, niacin Admission Admission Data Admission Date: 01/12/2019 Admission Time: 13:47 Arrival Date: 01/12/2019 Arrival Time: 13:47 Admit Source: Emergency Insurance Payor: Private department health insurance [facility] #: [id number] Height (in.): 68.11 BSA: 2.12 (m2) Height (cm.): 173 BMI: 33.08 (kg/m2) Weight (lbs.): 218.26 Weight (kg.): 99 Lab Results Lab Result Date: 01/12/2019 Lab Result Time: 0:00 Biochemistry Name Units Result Min Max BUN mg/dl 11 --(-*--)-- 7 18 Creatinine mg/dl 0.7 --(*---)-- 0.6 1.3 eGFR ml/min 90 --(*---)-- 90 120 NONAFRICAN CBC Name Units Result Min Max Hemoglobin g/dl 18.5 --(----)*- 13.5 17.5 Procedure Procedure Types Cath Procedure Diagnostic Procedure [facility] w/Coronaries Sedation Charges Moderate Sedation up to 30 minutes PCI Procedure PTCA PTCA Initial Procedure Description Procedure Date Procedure Date: 01/12/2019 Procedure Start Time: 14:42 Procedure End Time: 15:05 Procedure Staff Name Function Mikel Aleman MD Performing Physician Kaela Swan RT Monitor Millie Watts RT Scrub Son Gagnon RN Nurse Procedure Data Cath Procedure Fluoroscopy Diagnostic fluoroscopy Total fluoroscopy Time: 4.5 time: 4.5 min min Diagnostic fluoroscopy Total fluoroscopy dose: dose: 1541 mGy 1541 mGy Contrast Material Contrast Material Type Amount (ml) Isovue 300 116 Entry Location Entry Primary Successful Side Size Upsize Upsize Entry Closure Succes sful Closure Location (Fr) 1 (Fr) 2 (Fr) Remarks Device Remarks Femoral Right 6 Fr Exoseal artery Short Estimated blood loss: 5 ml Diagnostic catheters Device Type Used For End Catheter Placement MULTIPACK JL 4.0 5Fr Left Coronary catheter Angiography MULTIPACK 3DRC 5Fr Right Coronary catheter Angiography MULTIPACK Pigtail 5 Fr LV Angiography catheter Procedure Complications No complications Procedure Medications Medication Administration Route Dosage 0.9% NaCl I.V. 100 ml/hr Oxygen NRB 15 l/min Heparin Flush Bag added to field 1 bags (1000units/500ml NS) Lidocaine 2% added to field 20 Heparin Bolus I.V. 30176 units Integrilin (Bolus I.V. 9 ml 2mg/ml) Integrilin (Bolus wasted 1 ml 2mg/ml) Versed I.V. 1 mg Fentanyl I.V. 50 mcg Versed I.V. 1 mg Hemodynamics Rest BSA: 2.12 (m2) HGB: 18.5 (g/dl) O2 Consumption: Estimated: 276.66 (ml/min) O2 Co nsumption indexed: Estimated:130.5 (ml/min/m) Heart Rate: 104 (bpm) Pressure Samples Time Site Value (mmHg) Purpose Heart Use Rate(bpm) 14:59 LV 149/8,30 Snapshot 87 15:00 AO 148/90(115) Pullback 105 15:00 LV 141/9,25 Pullback 105 Gradients Valve Time Site 1 Site 2 Mean SEP/DFP Peak To Heart Use (mmHg) (sec/min) Peak Rate (mmHg) (bpm) Aortic 15:00 LV AO 0 6 0 105 141/9,25 148/90(115) Calculations Valve P-P Mean Valve Index Valve Source Name Gradient Area Flow (cm2) Aortic 0 0 0 0 Snapshots Pre Cath Intra NCS Post Cath Vital Signs Time Heart Resp SPO2 etCO2 NIBP (mmHg) Rhythm Pain Status Sedation Rate (ipm) (%) (mmHg) Level (bpm) 14:33:33 107 40 95 0 150/103(125) NSR 5 (11) , Very 10(A) distressing 14:37:47 107 26 91 0 153/103(121) NSR 5 (11) , Very 10(A) distressing 14:42:01 105 29 93 0 145/107(117) NSR 3 (11) , 10(A) Tolerable 14:46:11 41 24 93 0 131/95(112) NSR 3 (11) , 10(A) Tolerable 14:50:18 107 30 93 0 149/104(122) NSR 3 (11) , 10(A) Tolerable 14:54:28 110 27 94 0 143/96(123) NSR 2 (11) , 10(A) Uncomfortable 14:58:40 105 21 94 0 153/96(119) NSR 2 (11) , 10(A) Uncomfortable 15:02:54 109 20 94 0 142/100(115) NSR 2 (11) , 10(A) Uncomfortable Medications Time Medication Route Dose Verified Delivered Reason Notes Effectiveness by by 14:36:22 Fentanyl I.V. 50 mcg Son Son for sedation Kalin Gagnon RN, RN 14:36:39 0.9% NaCl I.V. 100 Son Son Per physician ml/hr Kalin Gagnon RN, RN 14:36:51 Oxygen NRB 15 Son Son for low 02 sats l/min Kalin Gagnon RN, RN 14:36:59 Versed I.V. 1 mg Son Son for sedation Kalin Gagnon RN, RN 14:37:04 Heparin Flush added 1 bags Son Son used for Bag to Kalin Gagnon procedure (1000units/500ml field ARTURO MORRIS NS) 14:37:17 Lidocaine 2% added 20ml Son Son for local to vial Lorflavio Gagnon anesthetic field RN RN 14:49:52 Heparin Bolus I.V. 10,000 Son Son for units Kalin Gagnon anticoagulation RN RN 14:51:25 Integrilin I.V. 9 ml Son Son for (Bolus 2mg/ml) Kalin Gagnon antiplatelet RN RN therapy 14:51:40 Integrilin wasted 1 ml Son Son to sharp's (Bolus 2mg/ml) Kalin Gagnon RN RN 14:54:28 Versed I.V. 1 mg Son Son for sedation Kalin Gagnon RN block breaker Log Time Note 14:04:14 Diagnostic Cath Status : Emergency 14:05:30 Informed consent obtained and on chart 14:07:19 Admit Source: Emergency department 14:07:24 Arrival Date: 01/12/2019 1:47:00 PM 14:07:32 Insurance Payor : Private health insurance 14:08:29 ACC Patient presents with STEMI CCS Anginal Class 4--Inability to carry out any physical activity w/o angina. Angina may occur at rest. 14:08:33 ACCPatient has been prescribed/administered the following anti-anginal medication within the last 2 weeks: Long-Acting Nitrates 14:09:00 Procedure Status Emergent Heart Cath (AMI). 14:09:06 Son Gagnon RN sent for patient. Start room use. 14:09:08 Time tracking: Regular hours (M-F 7:00 - 5:00) 14:09:14 Plan of Care:Hemodynamics will remain stable., Cardiac rhythm will remain stable., Comfort level will be maintained., Respiratory function will remain adequate., Patient/ family verbilizes understanding of procedure., Procedure tolerated without complication., Recovers from procedure without complications.. 14:25:31 Patient received from ED to CCL 2 Alert and oriented. Tansferred to table in Supine position. 14:25:33 Warm blankets applied, and usman hugger turned on for patient comfort. 14:25:33 Correct patient and procedure confirmed by team. 14:25:34 ECG and BP/O2 sat monitors applied to patient. 14:32:27 Vital chart was started 14:32:31 Baseline sample Acquired. 14:32:39 Rhythm: sinus tachycardia, w/ ST elevation 14:32:40 Full Disclosure recording started 14:32:44 H&P Date Dictated: 01/12/2019 ER History on chart., New H&P dictated by physician.. 14:32:46 Pre-procedure instructions explained to patient. 14:32:46 Pre-op teaching completed and patient verbalized understanding. 14:32:56 Family unavailable. 14:32:59 Patient NPO since Midnight. 14:33:01 Is the patient allergic to Iodine/contrast media? No. 14:33:03 Was the patient premedicated? No 14:33:07 Is patient on blood thinner?Yes 14:33:20 Patient diabetic? Yes. 14:33:21 If diabetic: On Metformin? Yes 14:33:22 If on Metformin: Last Dose? 01/12/2019 14:33:26 Previous problem with sedation/anesthesia? No ? 14:33:27 Snore? Yes 14:33:28 Sleep apnea? Yes 14:33:30 Deviated septum? No 14:33:30 Opens mouth fully? Yes 14:33:31 Sticks out tongue? Yes 14:33:33 Airway obstruction? No ? 14:33:37 Dentures? No ? 14:33:41 Pre procedure: right dorsailis pedis pulse 2+ Normal; easily identifiable; not easily obliterated 14:33:42 Pre procedure: left dorsailis pedis pulse 2+ Normal; easily identifiable; not easily obliterated 14:33:46 Patient pain scale 3/10 ?. 14:34:53 IV patent on arrival in left antecubital with 0.9% NaCl at [facility]. 14:35:07 Lab results pending. 14:35:11 Right groin area was prepped with chlora-prep and draped in sterile fashion 14:35:18 Alarms reviewed by R. N. 14:35:18 Sharps counted by scrub and verified by R.N. 14:35:19 Physician arrived 14:35:20 --------ALL STOP TIME OUT------ 14:35:20 Final Timeout: patient, procedure, and site verified with staff and physician. All members of the team are in agreement. 14:35:22 Right groin site verified by team. 14:35:25 Fire Safety Assessment: A--An alcohol-based skin anteseptic being used preoperatively., C--Open oxygen or nitrous oxide is being used., D--An ESU, laser, or fiber-optic light is being used. 14:35:28 Physical assessment completed. ASA score P 2 - A patient with mild systemic disease as per Mikel Aleman MD. 14:35:35 Sedation plan: IV Moderate Sedation Medication:Versed, Fentanyl 14:35:39 Use device set Femoral Dx 14:35:40 ACIST Syringe (86333) opened to sterile field. 14:35:40 Bag Decanter (2002S) opened to sterile field. 14:35:40 Medline Cath Pack ([id number]) opened to sterile field. 14:35:41 ACIST Hand Control (75570) opened to sterile field. 14:35:42 ACIST Manifold (47780) opened to sterile field. 14:35:42 DIAGNOSTIC Multipack 5Fr catheter set (WO3164) opened to sterile field. 14:35:43 Tegaderm 4 x 4 (1626W) opened to sterile field. 14:35:51 EMERALD Guide Wire (024-528) opened to sterile field. 14:36:03 SHEATH 6FR [place] (USO623) opened to sterile field. 14:36:22 Fentanyl 50 mcg I.V. was administered by Son Gagnon RN; for sedation; Verbal order read back and verified. 14:36:39 0.9% NaCl 100 ml/hr I.V. was administered by Son Gagnon RN; Per physician; Verbal order read back and verified. 14:36:51 Oxygen 15 l/min NRB was administered by Son Gagnon RN; for low 02 sats; Verbal order read back and verified. 14:36:59 Versed 1 mg I.V. was administered by Son Gagnon RN; for sedation; Verbal order read back and verified. 14:37:04 Heparin Flush Bag (1000units/500ml NS) 1 bags added to field was administered by Son Gagnon RN; used for procedure; Verbal order read back and verified. 14:37:17 Lidocaine 2% 20ml vial added to field was administered by Son Gagnon RN; for local anesthetic; Verbal order read back and verified. 14:41:58 Procedure started. 14:42:01 Local anesthetic to right femoral artery with Lidocaine 2% by Mikel Aleman MD.INITIAL ACCESS ONLY 14:42:10 A 6 Fr Short sheath was inserted into the Right Femoral artery 14:43:07 1) 90+ Normal kidney functon but urine findings or structural abnormalities or genetic trait point to kidney disease. 14:43:11 Maximum allowable contrast dose (3.7 X eGFR X 0.75)250 ml. 14:43:45 A MULTIPACK JL 4.0 5Fr catheter was advanced over the wire and used for Left Coronary Angiography. 14:44:10 Lab Result : eGFR NONAFRICAN 90 ml/min 14:44:10 Lab Result : Hemoglobin 18.5 g/dl 14:44:10 Lab Result : BUN 11 mg/dl 14:44:10 Lab Result : Creatinine 0.7 mg/dl 14:44:19 Patient Height : 68.11 inches 14:44:38 Patient Weight : 218.26 lbs 14:45:03 LCA angiography performed. 14:45:05 Injector settings: Ml/sec: 3, Volume: 6, 14:45:45 Catheter removed. 14:48:02 INFLATOR Merit BasixCompak (ZK3253) opened to sterile field. 14:48:02 GUIDE 6FR XBLAD 3.5 catheter ([id number]) opened to sterile field. 14:48:02 BMW 300cm Kunia 2 J wire ([id number]) opened to sterile field. 14:48:16 6 Fr xblad 3.5 guide catheter was inserted over the wire 14:48:53 Pre PCI Site: [place] pLAD has 95% stenosis. 14:48:56 ACC Pre-intervention JOSHUA Flow is 3. 14:49:00 bmw wire advanced. 14:49:52 Heparin Bolus 10,000 units I.V. was administered by Son Gagnon RN; for anticoagulation; Verbal order read back and verified. 14:50:54 Wire advanced across lesion. 14:51:25 Integrilin (Bolus 2mg/ml) 9 ml I.V. was administered by Son Gagnon RN; for antiplatelet therapy; Verbal order read back and verified. 14:51:40 Integrilin (Bolus 2mg/ml) 1 ml wasted was administered by Son Gagnon RN; to sharp's; Verbal order read back and verified. 14:52:47 Inflate balloon Inflation number: 1 A EMERGE OTW 3.0 x 15 balloon ([id number]) was prepped and advanced across the Prox LAD 95, then inflated to 14 DAVON for 0:30 (min:sec) . 14:54:00 Inflation number: 2 The EMERGE OTW 3.0 x 15 balloon ([id number]) was reinflated across the Prox LAD 95, to 14 DAVON for 0:30 (min:sec) . 14:54:28 Versed 1 mg I.V. was administered by Son Gagnon RN; for sedation; Verbal order read back and verified. 14:55:29 Balloon removed over the wire. 14:55:30 Wire removed. 14:55:31 Guide catheter removed. 14:55:39 A MULTIPACK 3DRC 5Fr catheter was advanced over the wire and used for Right Coronary Angiography. 14:57:29 RCA angiography performed. 14:57:32 Injector settings: Ml/sec: 3, Volume: 6, 14:57:54 Catheter removed. 14:57:55 ACCDominant side:Right 14:58:03 A MULTIPACK Pigtail 5 Fr catheter was advanced over the wire and used for LV Angiography. 14:59:27 LV hemodynamics recorded. 14:59:28 LV gram done using CASILLAS 14:59:31 Injector settings: Ml/sec: 5, Volume: 15, 14:59:44 EF : 40 % 15:00:02 Catheter removed. 15:00:03 ACC Post-intervention JOSHUA Flow is 3. 15:00:03 Post PCI Site: [place] pLAD has 0% stenosis. 15:00:08 ACT drawn and resulted at 326 seconds. (normal therapeutic range 180-240 seconds). 15:00:13 EXOSEAL 6Fr (EX600) opened to sterile field. 15:00:37 Sheath removed intact; hemostasis achieved with Exoseal to the Right Femoral artery. 15:00:39 Procedure ended.(Physican Out) 15:01:03 Fluoroscopy time 04.50 minutes. 15:01:49 Fluoroscopy dose: 1541 mGy 15:01:49 Flurop Dose total: 1541 15:02:17 Dose Area Product 11360 mGy/cm. 15:02:28 Contrast amount:Isovue 300 116ml. 15:02:32 Maximum allowable dose exceeded? No. 15:02:33 Sharps counted by scrub and verified by R.N. 15:02:37 Post-op/insertion site Right Femoral artery dressed using a 4 x 4 and Tegaderm. 15:02:40 Post right femoral artery:stable 15:03:16 Post Procedure Pulses reassessed and unchanged 15:03:21 Post procedure rhythm: unchanged. 15:03:24 Estimated blood loss: 5 ml 15:03:27 Post procedure instruction explained to patient.Patient verbalizes understanding. 15:03:27 Patient needs reinforcement of post procedure teaching. 15:04:00 Procedure type changed to Cath procedure, Diagnostic procedure, LHC, LHC w/Coronaries, Sedation Charges, Moderate Sedation up to 30 minutes, PCI procedure, PTCA, PTCA Initial 15:04:01 Procedure and supply charges have been captured, reviewed, submitted and are correct. 15:04:06 Procedure Complication : No complications 15:04:19 Vital chart was stopped 15:04:20 Operative report dictated upon procedure completion. 15:04:21 See physician's report for complete and final results. 15:04:55 Report given to [facility] II. 15:04:58 Patient transfered to Med II with Stretcher. 15:05:02 Procedure ended. 15:05:02 Full Disclosure recording stopped 15:05:29 ACC-PCI Only Patient was given prescriptions, or instructed by Mikel Aleman MD to start/continue the following medications upon discharge: Plavix 15:05:38 MVD- PCI performed (see procedure note) 15:05:39 End room use (Document Last) 15:20:10 Kaela Swan RT(R) was relieved by Son Gagnon RN as monitoring person Intervention Summary Intervention Notes Time ActionType Lesion and Equipment Action# Pressure Duration Attributes Used 14:52:47 Inflate Prox LAD EMERGE OTW 1 14 00:30 balloon 3.0 x 15 balloon ([id number]) 14:54:00 Reinflate Prox LAD EMERGE OTW 2 14 00:30 balloon 3.0 x 15 balloon ([id number]) Device Usage Item Name Manufacture Quantity Catalog Number Hospital Part Current Min imal Lot# / Charge Number Stock Stock Serial# Code ACIST Acist 1 58804 581789 155239 394224 20 Syringe Medical (63667) Systems Inc Bag Decanter Microtek 1 704479 53723 110731 5 () Medical Inc. Medline Cath Medline 1 [id number] 001438 32667 468653 5 Pack ([id number]) ACIST Hand Acist 1 65504 984130 392581 632842 5 Control Medical (27076) Systems Inc ACIST Acist 1 97750 228951 912126 398613 5 Manifold Medical (79637) Systems Inc DIAGNOSTIC Cardinal 1 ZC2636 726071 00391 487609 30 Multipack Health 5Fr catheter set (SW2419) Tegaderm 4 x 3M 1 1626W 135612 071027 886787 5 4 (1626W) EMERALD Cardinal 1 502-455 696137 612485 484410 5 Guide Wire Health (502-455) SHEATH 6FR Terumo 1 WKM187 564556 704099 880983 40 [place] (WST526) MULTIPACK JL Cardinal 1 823670 5 4.0 5Fr Health catheter INFLATOR Merit 1 MI1397 936118 503953 471181 15 [facility] [place] Zenprise BasixCompak (IE8693) GUIDE 6FR Cardinal 1 [id number] 490751 392844 317563 10 XBLAD 3.5 Health catheter (94133833) BMW 300cm Cheng 1 1004507H 126427 977765 384485 5 Kunia 2 Vascular J wire (9388929B) EMERGE OTW [place] 1 [id number] 872134 489956 566020 5 [id number] 3.0 x 15 Scientific balloon ([id number]) MULTIPACK Cardinal 1 608648 5 3DRC 5Fr Health catheter MULTIPACK Cardinal 1 191601 5 Pigtail 5 Fr Health catheter EXOSEAL 6Fr Cardinal 1 EX600 450860 207087 056345 10 (EX600) Health Signature Audit [place] Stage Time Signature Unsigned Intra-Procedure 01/12/2019 Kaela Swan 3:19:14 PM RT(R) Intra-Procedure 01/12/2019 Mikel Aleman MD 3:21:02 PM Signatures Performing Physician : Signature : Mikel Aleman MD Date : Time : Monitor : Kaela Swan RT Signature : Date : Time : Nurse : Son Lorigan Signature : RN Date : Time : [address] [place] [address]
[2019-01-12 14:13] LABS: BASOPHILS 0.4 % (0-2); HEMATOCRIT 55.4 % (42.0-54.0); HEMOGLOBIN 18.5 g/dL (13.5-17.5); IMMATURE GRANULOCYTES 0.3 % (0-5); LYMPHOCYTES 25.9 % (15-50); MCH 29.6 pg (26.0-34.0); MCHC 33.4 g/dL (31.0-37.0); MCV 88.8 fL (80.0-100.0); MEAN PLATELET VOLUME 10.7 fL (7.4-10.4); MONOCYTES 6.9 % (2-11); NEUTROPHILS 64.5 % (40-80); PLATELET COUNT 211 10x3/uL (130-400); RBC 6.24 10x6/uL (4.20-6.10); RDW 14.1 % (11.5-14.5); WBC 11.8 10x3/uL (4.8-10.8)
[2019-01-12 14:20] LABS: CALC OSMOLALITY 281 mosm/kg (275-300); CALCIUM 8.5 mg/dL (8.5-10.1); CARBON DIOXIDE 25.2 mmol/L (21.0-32.0); CHLORIDE - SERUM 100 mmol/L (98-107); CREATININE - SERUM 0.7 mg/dL (0.6-1.3); GLUCOSE 339 mg/dL (74-106); POTASSIUM - SERUM 4.1 mmol/L (3.5-5.1); SODIUM 135 mmol/L (136-145); UREA NITROGEN 11 mg/dL (7-18); eGFR NON AFRICAN AMERICAN > 90 mL/min (90-120)
[2019-01-12] MEDS ORDERED: DOXYCYCLINE HY100 M2 PO (15:50)
[2019-01-12] MEDS ORDERED: LEVEMIR FL100 UNIT/1 SC (15:51)
[2019-01-12] MEDS ORDERED: HYDROCODON-ACE1 EA10 PO (15:52)
--- NOTE | 2019-01-12 15:55 | NUR ---
PT RECEIVED TO ROOM ALERT AND CONVERSANT. ORIENTED. C/O PAIN LEVEL OF 4 IN CHEST. HAS CALLED TO NOTIFY OF HIS ROOM NUMBER. PALPABLE PEDAL PULSES. RIGHT GROIN SITE IS SOFT TO TOUCH, NO HEMATOMA NOTED, NO TENDERNESS. PT IS ON NON-REBREATHER MASK AT 15L AND SATS ARE 94%. HR 103 AT THIS TIME WITH BP 136/99.
--- NOTE | 2019-01-12 16:11 | NUR ---
HAVE PAGED DR ACOSTA TO ALERT OF PT C/O PAIN AND TO ADDRESS PT HOME MEDICATIONS. AWAITING RETURN CALL.
--- NOTE | 2019-01-12 16:42 | NUR ---
DR ACOSTA STOPPED BY TO SEE PATIENT. UPDATED FAMILY. NEW ORDERS RECEIVED
--- NOTE | 2019-01-12 17:17 | NUR ---
PT CAME TO DESK SAYING PT WAS BLEEDING FROM GROIN WHEN SHE HELPED PT TO URINATE. PRESSURE HELD AND FEMSTOP OBTAINED AND PLACED. SMALL PALPABLE MASS NOTED AT GROIN SITE. [facility] TEAM NOTIFIED OF EVENTS. PT HAD EPISODE OF SVT, SHORT RUN. PRINTOUT OBTAINED AND PROVIDED TO DR ACOSTA. JANIA FROM [facility] HAS COME TO CHECK SITE.
[2019-01-12 17:30] LABS: HEMATOCRIT 54.4 % (42.0-54.0); HEMOGLOBIN 18.5 g/dL (13.5-17.5)
--- NOTE | 2019-01-12 18:03 | NUR ---
LAB HAS ATTEMPTED X2 TO GET SAMPLE RUN FOR P2Y12. ERRORS OUT. TESTING DOCUMENTATION SHOWS IF HCT GREATER THAN 52 SAMPLE MAY NOT RESULT. WILL TRY AGAIN IN THE AM WITH MORNING LABS.
--- NOTE | 2019-01-12 18:30 | NUR ---
HALF PRESSURE RELEASED FROM FEMSTOP. PALPABLE PULSES, PEDAL AND TIBIAL.
--- NOTE | 2019-01-12 19:00 | NUR ---
PT C/O INDIGESTION, REQUESTING MEDICATION.
--- NOTE | 2019-01-12 19:20 | NUR ---
DR HAYWARD PAGED HE IS LISTED ON-CALL AT THIS TIME. AWAITING RETURN CALL FOR ORDERS FOR PT INDIGESTION
--- NOTE | 2019-01-12 19:45 | NUR ---
NOITIFIED DR HAYWARD OF PT HAVING GASTRIC REFLUX AND REQUESTING NEXIUM. NEW ORDER RECIEVED. FEM STOP DC'D AFTER TAPERING PRESSURE DOWN. NO HEMATOMA OR BLEEDING AT THIS TIME.
--- NOTE | 2019-01-12 21:50 | NUR ---
AT BEDSIDE. PT STATES THAT HE STILL DOESNT FEEL GOOD. STATES THAT THE MORPHINE MAKES THE PAIN MANAGEABLE BUT DOESNT MAKE IT GO AWAY. HOB ELEVATED. R GROIN HAS NO HEMATOMA AND NO BLEEDING. REMAINS SR PER CM.
[2019-01-13] VITALS (23 sets, daily range): BP systolic 108–130; BP diastolic 48–86
[2019-01-13 03:13] LABS: BASOPHILS 0.2 % (0-2); EOSINOPHILS 0.1 % (0-7); HEMATOCRIT 53.4 % (42.0-54.0); HEMOGLOBIN 17.6 g/dL (13.5-17.5); IMMATURE GRANULOCYTES 0.2 % (0-5); LYMPHOCYTES 11.8 % (15-50); MCH 29.5 pg (26.0-34.0); MCV 89.4 fL (80.0-100.0); MEAN PLATELET VOLUME 10.8 fL (7.4-10.4); MONOCYTES 7.2 % (2-11); NEUTROPHILS 80.5 % (40-80); PLATELET COUNT 212 10x3/uL (130-400); RBC 5.97 10x6/uL (4.20-6.10); RDW 14.4 % (11.5-14.5); WBC 13.3 10x3/uL (4.8-10.8)
[2019-01-13 03:20] LABS: PLT FUNCT.(P2Y12) PLAVIX 111 PRU (194-418)
[2019-01-13 03:23] LABS: CALCIUM 8.3 mg/dL (8.5-10.1); CARBON DIOXIDE 27.9 mmol/L (21.0-32.0); CHLORIDE - SERUM 102 mmol/L (98-107); CREATININE - SERUM 0.8 mg/dL (0.6-1.3); POTASSIUM - SERUM 4.4 mmol/L (3.5-5.1); SODIUM 139 mmol/L (136-145); eGFR NON AFRICAN AMERICAN > 90 mL/min (90-120)
[2019-01-13 03:27] LABS: CALC OSMOLALITY 285 mosm/kg (275-300); GLUCOSE 277 mg/dL (74-106); UREA NITROGEN 8 mg/dL (7-18)
--- NOTE | 2019-01-13 07:00 | NUR ---
SHIFT ASSESSMENT COMPLETED. PT CARE ASSUMED, MONITORS ON AND WORKING, VITALS STABLE. PT AWAKE AND ALERT. CALL LIGHT WITHIN REACH, SEE FLOW SHEET FOR FURTHER DETIALS, WILL CONTINUE TO OBSERVE.
--- NOTE | 2019-01-13 09:00 | NUR ---
NO CHANGES, FAMILY AT BEDSIDE, UPDATE PROVIDED, MONITORS ON AND WORKING,VITALS STABLE. CALL LIGHT WITHIN REACH. FAMILY ASSISTED WITH CHG BATH AND LINEN CHANGE, PT TOLERATED WELL. WILL CONTINUE TO OBSRVE.
--- NOTE | 2019-01-13 11:00 | NUR ---
DR ACOSTA AT BEDSIDE, ORDERS REC'D TO GIVE ONE TIME DOSE OF 120MG SOLU MEDROL, AND EKG. PT SITTING UP IN BED, MONITORS ON AND WORKING, VITALS STABLE, PAIN MEDS GIVEN PER PTS REQUEST AND PRN ORDERS. SEE FLOW SHEET FOR FURTHER DETAILS, WILL CONTINUE TO OBSERVE.
--- NOTE | 2019-01-13 11:41 | NUR ---
SPOKE WITH DR ACOSTA. OK TO RESTART PT HOME MEDICATION OF LEVEMIR
--- NOTE | 2019-01-13 17:48 | NUR ---
PT SITTING UP AT EDGE OF BED. HAS HAD DINNER. FAMILY NOW AT BEDSIDE FOR VISITATION. PT STATES PAIN HAS REGULATED AND NOT INTENSE HAS BEEN.
--- NOTE | 2019-01-13 19:00 | NUR ---
REPORT RECEIVED, CARE ASSUMED. PT IS SITTING UP IN BED WATCHING TV AT THIS TIME. NO NEEDS VOICED. INITIAL ASSESSMENT COMPLETED, SEE FLOWSHEET FOR DETAILS. NO SIGNS OF ACUTE DISTRESS. WILL CONTINUE TO MONITOR.
--- NOTE | 2019-01-13 20:31 | MORECARE ---
CASE MANAGEMENT DISCHARGE SUMMARY PATIENT: JILLIAN SINCLAIR UNIT: [id number] ADM DATE: 01/12/19 AGE: 58 : 58 SEX: M [facility] AUTHOR: KONRAD MAI PHYSICIAN: REFERRING PHYSICIAN: RAMYA ACOSTA M.D. DATE OF SERVICE: 01/13/19 Discharge Plan Patient Name: JILLIAN SINCLAIR Facility: [facility]:[place] : 1960 Planned Disposition: Anticipated Discharge Date: Discharge Date: Expected LOS: Initial Reviewer: [email or web address] Initial Review Date: 01/13/2019 Generated: 01/13/19 9:30 pm Patient Name: JILLIAN SINCLAIR Page [phone] at 2031 All edits/amendments must be made on the electronic document DICTATION DATE: 01/13/192029 DONOR SUPPORT TECHNICIAN: ARACELI 01/13/192029 RPT#: [id number] DC DATE: STATUS: ADM IN [facility] [address] [place] [address] END OF REPORT
--- NOTE | 2019-01-13 20:37 | MORECARE ---
CASE MANAGEMENT DISCHARGE SUMMARY PATIENT: JILLIAN SINCLAIR UNIT: [id number] ADM DATE: 01/12/19 AGE: 58 : 58 SEX: M ROOM/BED: D[facility] AUTHOR: KONRAD MAI PHYSICIAN: REFERRING PHYSICIAN: RAMYA ACOSTA M.D. DATE OF SERVICE: 01/13/19 Discharge Plan Patient Name: JILLIAN SINCLAIR Facility: [facility]:[place] : 1960 Planned Disposition: Anticipated Discharge Date: Discharge Date: Expected LOS: Initial Reviewer: [email or web address] Initial Review Date: 01/13/2019 Generated: 01/13/19 9:37 pm Comments DCP- Discharge Planning Updated by [email or web address]: Lashonda Luther on 01/13/19 7:[address] Patient Name: JILLIAN SINCLAIR Admission Status: ER Accout number: [id number] Admission Date: 01-12-2019 : 1960 Admission Diagnosis: Attending: RAMYA ACOSTA Current LOS: 1 Anticipated DC Date: Planned Disposition: Primary Insurance: [facility] [employer] Discharge Planning Comments: CM met with patient at bedside after explaining CM role and obtaining verbal consent. Patient lives at home with his Nataliia where he is independent with his care and plans to return there upon discharge. Patient feels this would be a safe discharge. CM discussed availability / needs of home health and medical equipment. Patient states he does have a CPAP at home. Patient denies any discharge needs at this time. Patient states he will have his family drive him home upon discharge. CM will continue to follow and assist as needed with discharge planning / needs. Skiver Welt End: Lashonda Luther Last DP export: 01/13/19 7:31 Patient Name: JILLIAN SINCLAIR Page [phone] at 2036 All edits/amendments must be made on the electronic document DICTATION DATE: 01/13/192036 PRIVATE SECURITY GUARD: ARACELI 01/13/192036 RPT#: [id number] DC DATE: STATUS: ADM IN [facility] [address] [place] [address] END OF REPORT
--- NOTE | 2019-01-13 21:00 | NUR ---
PT IS RESTING IN BED WATCHING TV WITH AT BEDSIDE. NO NEEDS VOICED AT THIS TIME. NO SIGNS OF ACUTE DISTRESS. WILL CONTINUE TO MONITOR.
--- NOTE | 2019-01-13 23:00 | NUR ---
REASSESSMENT COMPLETED, SEE FLOWSHEET FOR DETAILS. PT IS LAYING IN BED WITH EYES CLOSED AT THIS TIME. NO NEEDS VOICED. NO SIGNS OF ACUTE DISTRESS. WILL CONTINUE TO MONITOR.
[2019-01-14] VITALS (13 sets, daily range): BP systolic 102–125; BP diastolic 66–85; Ht 172.7 cm; Wt 94.3 kg
--- NOTE | 2019-01-14 01:00 | NUR ---
PT IS RESTING IN BED WITH EYES CLOSED AT THIS TIME. NO NEEDS VOICED. NO SIGNS OF ACUTE DISTRESS. WILL CONTINUE TO MONITOR.
--- NOTE | 2019-01-14 03:00 | NUR ---
REASSESSMENT COMPLETED, SEE FLOWSHEET FOR DETAILS. PT IS RESTING IN BED AT THIS TIME WITH EYES CLOSED. NO NEEDS VOICED. NO SIGNS OF ACUTE DISTRESS. WILL CONTINUE TO MONITOR.
--- NOTE | 2019-01-14 05:00 | NUR ---
PT IS LAYING IN BED WITH EYES CLOSED. NO SIGNS OF ACUTE DISTRESS. WILL CONTINUE TO MONITOR.
[2019-01-14 09:29] LABS: CHOL - HDL RATIO 6.7 ratio (2.3-4.9)
--- NOTE | 2019-01-14 10:51 | NUR ---
PT UP AD YU. DENIES C/P.
--- NOTE | 2019-01-14 12:02 | MORECARE ---
CASE MANAGEMENT DISCHARGE SUMMARY PATIENT: JILLIAN SINCLAIR UNIT: [id number] ADM DATE: 01/12/19 AGE: 58 : 58 SEX: M ROOM/BED: D.03 AUTHOR: SERGEI,DOC PHYSICIAN: REFERRING PHYSICIAN: RAMYA ACOSTA M.D. DATE OF SERVICE: 01/14/19 Discharge Plan Patient Name: JILLIAN SINCLAIR Facility: [facility]:[place] : 1960 Planned Disposition: Anticipated Discharge Date: Discharge Date: Expected LOS: Initial Reviewer: [email or web address] Initial Review Date: 01/13/2019 Generated: 01/14/19 1:02 pm Comments DCP- Discharge Planning Updated by [email or web address]: Lashonda Luther on 01/13/19 7:[address] Patient Name: JILLIAN SINCLAIR Admission Status: ER Accout number: [id number] Admission Date: 01-12-2019 : 1960 Admission Diagnosis: Attending: RAMYA ACOSTA Current LOS: 1 Anticipated DC Date: Planned Disposition: Primary Insurance: [facility] MEDICARE SOLUTIONS Discharge Planning Comments: CM met with patient at bedside after explaining CM role and obtaining verbal consent. Patient lives at home with his Silvia where he is independent with his care and plans to return there upon discharge. Patient feels this would be a safe discharge. CM discussed availability / needs of home health and medical equipment. Patient states he does have a CPAP at home. Patient denies any discharge needs at this time. Patient states he will have his family drive him home upon discharge. CM will continue to follow and assist as needed with discharge planning / needs. Broadcast Transmitter Operator: Lashonda Luther DCPIA - Discharge Planning Initial Assessment Updated by [email or web address]: Lashonda Luther on 01/14/19 11:54 am * Is the patient Alert and Oriented? Yes * How many steps to enter\exit or inside your home? * PCP Oralia HARDING * Pharmacy [facility] [place] * Preadmission Environment Home with Family * ADLs Independent * Equipment CPAP * List name and contact numbers for known caregivers / representatives who currently or will assist patient after discharge: SILVIA SINCLAIR-- [phone] * Verbal permission to speak to the caregivers and representatives has been obtained from the patient. Yes * Additional services required to return to the preadmission environment? No * Can the patient safely return to the preadmission environment? Yes * Has this patient been hospitalized within the prior 30 days at any hospital? No Last DP export: 01/13/19 7:37 Patient Name: JILLIAN SINCLAIR Page 92773 at 1202 All edits/amendments must be made on the electronic document DICTATION DATE: 01/14/19 120 BUSHING PRESS OPERATOR: ARACELI 01/14/19 1202 RPT#: [id number] DC DATE: STATUS: ADM IN [facility] [address] [place] [address] END OF REPORT
--- NOTE | 2019-01-14 14:03 | NUR ---
DR ACOSTA HERE. DC INSTRUCTIONS GIVEN.
[2019-01-14] MEDS ORDERED: MEDROL DOSE PACK4 MG PO (14:24)
[2019-01-14] MEDS ORDERED: COREG 3.1253.125 MG PO (14:25)
--- NOTE | 2019-01-14 15:32 | NUR ---
Nutrition education: Instructed pt on consistent CHO diet and provided pt with printed handouts and RDN name and phone number. RDN following.
--- NOTE | 2019-01-17 09:12 | MORECARE ---
CASE MANAGEMENT DISCHARGE SUMMARY PATIENT: JILLIAN SINCLAIR UNIT: [id number] ADM DATE: 01/12/19 AGE: 58 : 58 SEX: M ROOM/BED: D.[facility] AUTHOR: SERGEI,DOC PHYSICIAN: REFERRING PHYSICIAN: RAMYA ACOSTA M.D. DATE OF SERVICE: 01/17/19 Discharge Plan Patient Name: JILLIAN SINCLAIR Facility: [facility]:[place] : 1960 Planned Disposition: Anticipated Discharge Date: Discharge Date: 01/14/2019 Expected LOS: Initial Reviewer: [id number] Initial Review Date: 01/13/2019 Generated: 01/17/19 10:12 am Comments DCP- Discharge Planning Updated by [email or web address]: Lashonda Luther on 01/13/19 7:[address] Patient Name: JILLIAN SINCLAIR Admission Status: ER Accout number: [id number] Admission Date: 01-12-2019 : 1960 Admission Diagnosis: Attending: RAMYA ACOSTA Current LOS: 1 Anticipated DC Date: Planned Disposition: Primary Insurance: [facility] MEDICARE SOLUTIONS Discharge Planning Comments: CM met with patient at bedside after explaining CM role and obtaining verbal consent. Patient lives at home with his Silvia where he is independent with his care and plans to return there upon discharge. Patient feels this would be a safe discharge. CM discussed availability / needs of home health and medical equipment. Patient states he does have a CPAP at home. Patient denies any discharge needs at this time. Patient states he will have his family drive him home upon discharge. CM will continue to follow and assist as needed with discharge planning / needs. Business Management Specialist: Lashonda Luther DCPIA - Discharge Planning Initial Assessment Updated by [email or web address]: Lashonda Luther on 01/14/19 11:54 am * Is the patient Alert and Oriented? Yes * How many steps to enter\exit or inside your home? * PCP Oralia HARDING * Pharmacy [facility] [place] * Preadmission Environment Home with Family * ADLs Independent * Equipment CPAP * List name and contact numbers for known caregivers / representatives who currently or will assist patient after discharge: SILVIA SINCLAIR-- [phone] * Verbal permission to speak to the caregivers and representatives has been obtained from the patient. Yes * Additional services required to return to the preadmission environment? No * Can the patient safely return to the preadmission environment? Yes * Has this patient been hospitalized within the prior 30 days at any hospital? No Last DP export: 01/14/19 11:03 Patient Name: JILLIAN SINCLAIR Page 06984 at 0912 All edits/amendments must be made on the electronic document DICTATION DATE: 01/17/19910 LIVESTOCK JUDGING COACH: ARACELI 01/17/19910 RPT#: [id number] DC DATE:01/14/19 STATUS: DIS IN [facility] [address] [place] [address] END OF REPORT
== END 2019-01-14 15:00 | disposition home or self-care (01) | DRG 251 ==
LOC: D.ER 13:47 → D.CVICU 13:54 → D.M2 15:06 → D.ER 15:06 → D.CVICU 15:40 → D.ER 15:40 → D.CVICU 01-14 15:00
PROVIDERS: ADMIT Internal Medicine Cardiovascular Disease; ATTEND Internal Medicine Cardiovascular Disease
PROC: B2151ZZ Fluoroscopy of Left Heart using Low Osmolar Contrast (ICD-10-PCS; 2019-01-12)
PROC: 4A023N7 Measurement of Cardiac Sampling and Pressure, Left Heart, Percutaneous Approach (ICD-10-PCS; 2019-01-12)
PROC: 02703ZZ Dilation of Coronary Artery, One Artery, Percutaneous Approach (ICD-10-PCS; principal; 2019-01-12 14:09)
PROC: B2111ZZ Fluoroscopy of Multiple Coronary Arteries using Low Osmolar Contrast (ICD-10-PCS; 2019-01-12 14:09)
DX: I21.A9 Other myocardial infarction type (principal); T82.855A Stenosis of coronary artery stent, initial encounter; I31.9 Disease of pericardium, unspecified; E11.9 Type 2 diabetes mellitus without complications; K21.9 Gastro-esophageal reflux disease without esophagitis; I25.10 Atherosclerotic heart disease of native coronary artery without angina pectoris

== ENCOUNTER 2019-01-23 12:15 | Inpatient (IN) | payer MEDICARE ==
[~2019-01-23] VITALS: Ht 172.7 cm; Wt 111.4 kg
--- NOTE | ~2019-01-23 | HEMODYNAMI ---
PATIENT:JILLIAN SINCLAIR MEDICAL RECORD: [id number] : 58 [facility] [place] [facility] [id number] ADMISSION DATE: 01/23/19 Generatedon:01/23/201914:15 Patient name: JILLIAN SINCLAIR Patient #: [id number] SSN: [id number] : 1960 Date of study: 01/23/2019 Page: Of Hemodynamic Procedure Report Patient Data Patient Demographics Procedure consent was obtained First Name: JILLIAN Gender: Male Last Name: DOTTIE : 1960 [facility] Initial: KEN Age: 58 year(s) Patient #: [id number] Race: SSN: [id number] Additional ID: [id number] Contact details [address]: [address] [place] [address] cutoff State: [place] City: [place] Zip code: [address] Past Medical History Allergies Allergen Reaction Date Comments Reported Other allergy 01/22/2018 Niacin, Lipitor Statins 01/27/2018 Other allergy 08/26/2018 Niacin, Rmizeia-hsf-hdl Reductase inhibitor Other allergy 08/27/2018 statins, niacin Admission Admission Data Admission Date: 01/23/2019 Admission Time: 13:24 Arrival Date: 01/23/2019 Arrival Time: 0:00 Admit Source: Other Insurance Payor: Medicare Room #: D.2124 [facility] #: [id number] Height (in.): 68 BSA: 2.06 (m2) Height (cm.): 172.72 BMI: 31.08 (kg/m2) Weight (lbs.): 204.41 Weight (kg.): 92.72 Procedure Procedure Types Cath Procedure Diagnostic Procedure LHC LHC w/Coronaries Sedation Charges Moderate Sedation up to 30 minutes PCI Procedure AMI/SVG/CANCER PROGRAM COORDINATOR PTCA or Stent AMI-BMS/ISABELLA Initial Procedure Description Procedure Date Procedure Date: 01/23/2019 Procedure Start Time: 13:45 Procedure End Time: 13:58 Procedure Staff Name Function Kaela Swan RT Monitor Roberto Corey MD Performing Physician Millie Watts RT Scrub Son Gagnon RN Nurse Procedure Data Cath Procedure Fluoroscopy Diagnostic fluoroscopy Total fluoroscopy Time: 2.3 time: 2.3 min min Diagnostic fluoroscopy Total fluoroscopy dose: dose: 1211 mGy 1211 mGy Contrast Material Contrast Material Type Amount (ml) Isovue 300 93 Entry Location Entry Primary Successful Side Size Upsize Upsize Entry Closure Succes sful Closure Location (Fr) 1 (Fr) 2 (Fr) Remarks Device Remarks Femoral Left 6 Fr Exoseal artery Short Estimated blood loss: 5 ml Diagnostic catheters Device Type Used For End Catheter Placement DIAGNOSTIC Pigtail 5Fr LV Angiography catheter ([id number]) DIAGNOSTIC 3DRC 5Fr Right Coronary catheter ([id number]) Angiography Procedure Complications No complications Procedure Medications Medication Administration Route Dosage 0.9% NaCl I.V. 100 ml/hr Oxygen NC 3 l/min Heparin Flush Bag added to field 2 bags (1000units/500ml NS) Versed I.V. 2 mg Fentanyl I.V. 100 mcg Heparin Bolus I.V. 3000 units Integrilin (Bolus I.V. 8.5 ml 2mg/ml) Integrilin (Bolus I.V. 1.5 ml 2mg/ml) Effient P.O. 60 mg Hemodynamics Rest BSA: 2.06 (m2) O2 Consumption: Estimated: 231.72 (ml/min) O2 Consumption indexed : Estimated:112.49 (ml/min/m) Heart Rate: 56 (bpm) Pressure Samples Time Site Value (mmHg) Purpose Heart Use Rate(bpm) 13:46 LV 95/12,14 Snapshot 57 Snapshots Pre Cath Intra NCS Post Cath Vital Signs Time Heart Resp SPO2 etCO2 NIBP Rhythm Pain Sedation Rate (ipm) (%) (mmHg) (mmHg) Status Level (bpm) 13:39:34 78 25 91 0 109/75(90) NSR 3 (11) , 10(A) Tolerable 13:43:44 78 24 88 0 103/68(80) NSR 3 (11) , 10(A) Tolerable 13:47:52 79 19 90 0 105/71(84) NSR 3 (11) , 10(A) Tolerable 13:51:58 80 19 90 0 103/74(88) NSR 3 (11) , 10(A) Tolerable 13:56:08 79 23 90 0 92/65(77) NSR 3 (11) , 10(A) Tolerable Medications Time Medication Route Dose Verified Delivered Reason Notes Effectiveness by by 13:40:34 0.9% NaCl I.V. 100 Son Son Per physician ml/hr Kalin Gagnon RN RN 13:40:49 Oxygen NC 3 Son Son for low 02 sats l/min Kalin Gagnon RN RN 13:41:03 Heparin Flush added 2 Son Son used for Bag to bags Kalin Gagnon procedure (1000units/500ml field RN RN NS) 13:47:00 Versed I.V. 2 mg Son Son for sedation Kalin Gagnon RN RN 13:47:08 Fentanyl I.V. 100 Son Son for sedation mcg Kalin Gagnon RN RN 13:54:59 Heparin Bolus I.V. 3,000 Son Son for units Kalin Gagnon anticoagulation RN RN 13:55:17 Integrilin I.V. 8.5 Son Son for (Bolus 2mg/ml) ml Kalin Gagnon antiplatelet RN RN therapy 13:55:26 Integrilin I.V. 1.5 Son Son to sharp's (Bolus 2mg/ml) ml Kalin Gagnon RN RN 13:59:13 Effient P.O. 60 mg Son Son for Kalin Gagnon antiplatelet RN RN therapy Procedure Log Time Note 13:19:17 Diagnostic Cath Status : Elective 13:21:44 Admit Source: Other 13:25:52 Patient Height : 68 inches 13:26:00 Patient Weight : 204.41 lbs 13:26:09 Insurance Payor : Medicare 13:26:11 Arrival Date: 01/23/2019 12:00:00 AM 13:29:28 ACC Patient presents with Unstable Angina CCS Anginal Class 4--Inability to carry out any physical activity w/o angina. Angina may occur at rest. 13:29:33 Procedure Status Emergent Heart Cath (AMI). 13:29:36 Son Gagnon RN sent for patient. Start room use. 13:29:37 Time tracking: Regular hours (M-F 7:00 - 5:00) 13:29:41 Plan of Care:Hemodynamics will remain stable., Cardiac rhythm will remain stable., Comfort level will be maintained., Respiratory function will remain adequate., Patient/ family verbilizes understanding of procedure., Procedure tolerated without complication., Recovers from procedure without complications.. 13:38:23 Patient received from ED to CCL 1 Alert and oriented. Tansferred to table in Supine position. 13:38:25 Signed procedure consent form obtained from patient. 13:38:26 Signed procedure consent form obtained from patient. 13:38:28 Warm blankets applied, and usman hugger turned on for patient comfort. 13:38:29 Correct patient and procedure confirmed by team. 13:38:30 Vital chart was started 13:38:30 ECG and BP/O2 sat monitors applied to patient. 13:38:31 Baseline sample Acquired. 13:38:35 Rhythm: sinus rhythm 13:38:37 Full Disclosure recording started 13:38:42 H&P Date Dictated: 01/23/2019 ER History on chart., New H&P dictated by physician.. 13:38:44 Pre-procedure instructions explained to patient. 13:38:45 Pre-op teaching completed and patient verbalized understanding. 13:39:06 Family unavailable. 13:39:15 Patient NPO since Midnight. 13:39:17 Is the patient allergic to Iodine/contrast media? No. 13:39:18 Was the patient premedicated? No 13:39:20 Is patient on blood thinner?Yes 13:39:24 ACC The patient was administered the following blood thiners within the last 24 hours: ACCPlavix 13:40:23 Patient diabetic? Yes. 13:40:24 If diabetic: On Metformin? Yes 13:40:26 If on Metformin: Last Dose? 01/23/2019 13:40:28 Previous problem with sedation/anesthesia? No ? 13:40:31 Snore? Yes 13:40:32 Sleep apnea? Yes 13:40:34 0.9% NaCl 100 ml/hr I.V. was administered by Son Gagnon RN; Per physician; Verbal order read back and verified. 13:40:39 Deviated septum? No 13:40:49 Oxygen 3 l/min NC was administered by Son Gagnon RN; for low 02 sats; Verbal order read back and verified. 13:41:02 Opens mouth fully? Yes 13:41:03 Heparin Flush Bag (1000units/500ml NS) 2 bags added to field was administered by Son Gagnon RN; used for procedure; Verbal order read back and verified. 13:41:05 Sticks out tongue? Yes 13:41:08 Airway obstruction? No ? 13:41:16 Dentures? Yes partials in tight 13:41:24 Pre procedure: right dorsailis pedis pulse 1+ Palpable, but thready & weak; easily obliterated 13:41:27 Pre procedure: left dorsailis pedis pulse 1+ Palpable, but thready & weak; easily obliterated 13:41:31 Patient pain scale 3/10 ?. 13:41:37 IV patent on arrival in left hand with 0.9% NaCl at [facility]. 13:41:40 Lab results completed and on chart. 13:41:47 Left groin area was prepped with chlora-prep and draped in sterile fashion 13:41:48 Alarms reviewed by R. N. 13:41:49 Sharps counted by scrub and verified by R.N. 13:42:41 Physician arrived 13:42:42 Final Timeout: patient, procedure, and site verified with staff and physician. All members of the team are in agreement. 13:42:42 --------ALL STOP TIME OUT------ 13:42:44 Left groin site verified by team. 13:42:47 Fire Safety Assessment: A--An alcohol-based skin anteseptic being used preoperatively., C--Open oxygen or nitrous oxide is being used., D--An ESU, laser, or fiber-optic light is being used. 13:42:54 Physical assessment completed. ASA score P 3 - A patient with severe systemic disease as per Roberto Corey MD. 13:42:58 Sedation plan: IV Moderate Sedation Medication:Versed, Fentanyl 13:45:01 Use device set Acist 13:45:02 ACIST Syringe (94232) opened to sterile field. 13:45:03 ACIST Hand Control (29549) opened to sterile field. 13:45:04 ACIST Manifold (18757) opened to sterile field. 13:45:06 Procedure started. 13:45:14 Local anesthetic to left femerol artery with Lidocaine 2% by Roberto Corey MD.INITIAL ACCESS ONLY 13:45:23 A 6 Fr Short sheath was inserted into the Left Femoral artery 13:45:50 SHEATH 6FR Clinton (NRV971) opened to sterile field. 13:45:51 INFLATOR Merit BasixCompak (MN1628) opened to sterile field. 13:46:26 GUIDE 6FR XBLAD 3.5 catheter ([id number]) opened to sterile field. 13:46:45 CHOICE PT Extra Support 182cm wire ([id number]) opened to sterile field. 13:46:46 EMERALD Guide Wire (502-873) opened to sterile field. 13:47:00 Versed 2 mg I.V. was administered by Son Gagnon RN; for sedation; Verbal order read back and verified. 13:47:08 Fentanyl 100 mcg I.V. was administered by Son Gagnon RN; for sedation; Verbal order read back and verified. 13:47:12 A DIAGNOSTIC Pigtail 5Fr catheter (921660H) was advanced over the wire and used for LV Angiography. 13:47:16 LV hemodynamics recorded. 13:47:17 LV gram done using CASILLAS 13:47:20 Injector settings: Ml/sec: 5, Volume: 15, 13:47:26 Catheter removed. 13:47:26 EF : 40 % 13:47:45 A DIAGNOSTIC 3DRC 5Fr catheter (295321Y) was advanced over the wire and used for Right Coronary Angiography. 13:48:00 RCA angiography performed. 13:48:03 Injector settings: Ml/sec: 3, Volume: 6, 13:49:08 Catheter removed. 13:49:30 6 Fr xblad 3.5 guide catheter was inserted over the wire 13:49:36 LCA angiography performed. 13:49:38 Injector settings: Ml/sec: 3, Volume: 6, 13:49:48 ACCDominant side:Co-Dominant 13:54:20 choice pt wire advanced. 13:54:21 Wire advanced across lesion. 13:54:25 Place stent Inflation Number: 1 A LARS RX 3.5 x 26 stent ([id number]) was prepped and advanced across the Prox LAD . The stent was deployed at 14 DAVON for 0:10 (min:sec) . 13:54:59 Heparin Bolus 3,000 units I.V. was administered by Son Lorigan RN; for anticoagulation; Verbal order read back and verified. 13:55:15 Stent catheter was removed intact over wire. 13:55:16 Guide catheter removed. 13:55:16 Wire removed. 13:55:17 Integrilin (Bolus 2mg/ml) 8.5 ml I.V. was administered by Son Gagnon RN; for antiplatelet therapy; Verbal order read back and verified. 13:55:26 Integrilin (Bolus 2mg/ml) 1.5 ml I.V. was administered by Son Gagnon RN; to sharp's; Verbal order read back and verified. 13:55:58 ACT drawn and resulted at 322 seconds. (normal therapeutic range 180-240 seconds). 13:55:59 EXOSEAL 6Fr (EX600) opened to sterile field. 13:56:07 Sheath removed intact; hemostasis achieved with Exoseal to the Left Femoral artery. 13:56:09 Procedure ended.(Physican Out) 13:57:16 Fluoroscopy time 02.30 minutes. 13:57:21 Fluoroscopy dose: 1211 mGy 13:57:21 Flurop Dose total: 1211 13:57:26 Dose Area Product 94494 mGy/cm. 13:57:31 Contrast amount:Isovue 300 93ml. 13:57:34 Sharps counted by scrub and verified by R.N. 13:57:38 Insertion/operative site no bleeding no hematoma. 13:57:41 Post-op/insertion site Left Femoral artery dressed using a 4 x 4 and Tegaderm. 13:57:43 Post Procedure Pulses reassessed and unchanged 13:57:46 Post procedure rhythm: unchanged. 13:57:51 Estimated blood loss: 5 ml 13:57:53 Post procedure instruction explained to patient.Patient verbalizes understanding. 13:57:54 Patient needs reinforcement of post procedure teaching. 13:58:10 Procedure type changed to Cath procedure, Diagnostic procedure, LHC, [facility] w/Coronaries, Sedation Charges, Moderate Sedation up to 30 minutes, PCI procedure, AMI/SVG/CANCER PROGRAM COORDINATOR PTCA or Stent, AMI-BMS/ISABELLA Initial 13:58:11 Procedure and supply charges have been captured, reviewed, submitted and are correct. 13:58:16 Procedure Complication : No complications 13:58:19 Vital chart was stopped 13:58:25 [facility] Findings: MVD- PCI performed (see procedure note) 13:58:27 Operative report dictated upon procedure completion. 13:58:27 See physician's report for complete and final results. 13:58:30 Report given to [facility]. 13:58:33 Patient transfered to [facility] with Stretcher. 13:58:36 Procedure ended. 13:58:36 Full Disclosure recording stopped 13:58:45 ACC-PCI Only Patient was given prescriptions, or instructed by Roberto Corey MD to start/continue the following medications upon discharge: Effient 13:58:47 End room use (Document Last) 13:59:13 Effient 60 mg P.O. was administered by Son Gagnon RN; for antiplatelet therapy; Verbal order read back and verified. Intervention Summary Intervention Notes Time ActionType Lesion and Equipment Used Action# Pressure Duration Attributes 13:54:25 Place stent Prox LAD LARS RX 3.5 x 1 14 00:10 26 stent ([id number]) Device Usage Item Name Manufacture Quantity Catalog Number Hospital Part Current M inimal Lot# / Charge Number Stock Stock Serial# Code ACIST Syringe Acist 1 03248 110447 705249 847560 2 0 (31529) Medical Systems Inc ACIST Hand Acist 1 74707 074413 268943 034580 5 Control Medical (34713) Systems Inc ACIST Manifold Acist 1 75334 998440 548647 211872 5 (96943) Medical Systems Inc SHEATH 6FR Terumo 1 [id number] 941200 897799 496854 4 0 Clinton (OPV598) INFLATOR Merit Merit 1 DL8817 333812 383073 245074 1 5 HLH ELECTRONICSksCapevo (IJ2482) GUIDE 6FR Cardinal 1 [id number] 112960 254722 806298 1 0 XBLAD 3.5 Health catheter ([id number]) CHOICE PT [facility] 1 [id number] 726842 850716 256503 5 Extra Support Scientific 182cm wire ([id number]) EMERALD Guide Cardinal 1 502-455 136931 559121 257101 5 Wire (502-455) Health DIAGNOSTIC Cardinal 1 [id number] 443722 589119 299956 5 Pigtail 5Fr Health catheter (078428L) DIAGNOSTIC Cardinal 1 [id number] 754494 266866 789797 9 3DRC 5Fr Health catheter (147118D) LARS RX 3.5 x Medtronic 1 [id number] 561464 2452724 091789 5 [id number] 26 stent ([id number]) EXOSEAL 6Fr Cardinal 1 EX600 924406 473578 351866 1 0 (EX600) Health Signature Audit [place] Stage Time Signature Unsigned Intra-Procedure 01/23/2019 Kaela Swan 2:12:26 PM RT(R) Intra-Procedure 01/23/2019 Son 2:13:02 PM Kalin MORRIS Intra-Procedure 01/23/2019 Roberto Corey MD 2:13:20 PM 01/23/2019 2:14:15 PM Intra-Procedure 01/23/2019 Roberto Corey 2:15:08 PM [id number] [place] [address]
[~2019-01-23 12:15] MED LIST changes: +COREG 3.1253.125 MG PO; +DOXYCYCLINE HY100 M2 PO; +HYDROCODON-ACE1 EA10 PO; +LEVEMIR FL100 UNIT/1 SC; +MEDROL DOSE PACK4 MG PO
[2019-01-23 12:31] VITALS: BP 160/105
--- NOTE | 2019-01-23 12:37 | NUR ---
PT'S , SILVIA SINCLAIR, AT BEDSIDE AND SIGNED CONSENT FOR ASSET MANAGEMENT ANALYST PER PATIENT'S REQUEST.
[2019-01-23 12:59] LABS: BASOPHILS 0.6 % (0-2); EOSINOPHILS 2.9 % (0-7); HEMATOCRIT 55.3 % (42.0-54.0); HEMOGLOBIN 18.6 g/dL (13.5-17.5); IMMATURE GRANULOCYTES 0.3 % (0-5); LYMPHOCYTES 28.5 % (15-50); MCH 29.9 pg (26.0-34.0); MCHC 33.6 g/dL (31.0-37.0); MCV 88.9 fL (80.0-100.0); MEAN PLATELET VOLUME 11.1 fL (7.4-10.4); MONOCYTES 7.9 % (2-11); NEUTROPHILS 59.8 % (40-80); RBC 6.22 10x6/uL (4.20-6.10); RDW 14.3 % (11.5-14.5)
[2019-01-23 13:00] LABS: PLATELET COUNT 315 10x3/uL (130-400)
[2019-01-23 13:06] VITALS: BP 120/80
[2019-01-23 13:09] LABS: INR 1.01 (0.85-1.17); PROTIME 12.8 SECONDS (11.6-15.0)
[2019-01-23 13:13] VITALS: BP 101/63
--- NOTE | 2019-01-23 13:14 | NUR ---
PTS SATS LOW 90'S, O2 UP TO 3 LITERS
--- NOTE | 2019-01-23 13:18 | NUR ---
DR. HAYWARD IN TO SEE PT.
--- NOTE | 2019-01-23 13:19 | NUR ---
LOPRESSOR ORDERED IF BLOOD PRESSURE STAYS ELEVATED, BP DOWN TO 107/69. LAST 2 DOSES OF LOPRESSOR HELD .
--- NOTE | 2019-01-23 13:36 | NUR ---
PT TO POLYGRAPH TECHNICIAN VIA STRETCHER. MEDS GIVEN PER ORDERS.
[2019-01-23 13:37] LABS: CALC OSMOLALITY 275 mosm/kg (275-300); CALCIUM 8.9 mg/dL (8.5-10.1); CARBON DIOXIDE 25.9 mmol/L (21.0-32.0); CHLORIDE - SERUM 102 mmol/L (98-107); CREATININE - SERUM 0.7 mg/dL (0.6-1.3); POTASSIUM - SERUM 4.1 mmol/L (3.5-5.1); SODIUM 135 mmol/L (136-145); UREA NITROGEN 16 mg/dL (7-18); eGFR NON AFRICAN AMERICAN > 90 mL/min (90-120)
[2019-01-23 13:39] LABS: GLUCOSE 184 mg/dL (74-106)
[2019-01-23 13:58] LABS: ALBUMIN 3.2 g/dL (3.4-5.0); ALKALINE PHOSPHATASE 80 U/L (46-116); ALT (SGPT) 29 U/L (10-68); BILIRUBIN - TOTAL 0.93 mg/dL (0.2-1.3); CKMB 2.9 U/L (0.0-3.6); CREATINE KINASE 163 UL (21-232); MAGNESIUM - SERUM 1.9 mg/dL (1.8-2.4)
[2019-01-23 14:03] LABS: TROPONIN-I 0.516 ng/mL (0.000-0.060)
--- NOTE | 2019-01-23 14:29 | NUR ---
RECIEVED PATIENT FROM THE MARINE PLUMBER VITALS ARE STABLE. PATIENT WITH NO COMPLAINTS OF PAIN. EXOSEAL IN PLACE WITH NO BRUISING AND OR TENDERNESS AROUND INSERTIONS SITE. PATIENT TO LAY STILL AND FLAT FOR 3 ADDITIONAL HOURS. PATIENT CALLING . DIET ORDERED AND SANDWHICH PROVIDED
[2019-01-23 14:32] VITALS: BP 97/62; Ht 172.7 cm; Wt 111.4 kg
[2019-01-23 15:47] VITALS: BP 97/58
--- NOTE | 2019-01-23 19:30 | NUR ---
RECEIVED REPORT, WILL ASSUME CARE OF PT, DENIES ANY NEEDS, DRESSING TO L.GROIN CDI-SOFT, BED IS LOW, SRX2, CALL LIGHT IN REACH, FAMILY AT BED SIDE, WILL CONTINUE PLAN OF CARE
[2019-01-23 20:00] VITALS: BP 97/52
--- NOTE | 2019-01-23 21:18 | NUR ---
SPOKE WITH , HE ORDER NORCO 10 @4HRS PRN
[2019-01-24 00:34] VITALS: BP 95/53
[2019-01-24 04:00] VITALS: BP 92/60
--- NOTE | 2019-01-24 04:02 | NUR ---
I have reviewed this patient and I concur with the Shift Assessment completed by the Licensed Practical Nurse today this shift.
[2019-01-24 07:38] VITALS: BP 97/60
--- NOTE | 2019-01-24 07:59 | NUR ---
ASSESSMENT DONE. DENIES NEEDS
--- NOTE | 2019-01-24 09:09 | NUR ---
I have reviewed this patient and I concur with the Shift Assessment completed by the Licensed Practical Nurse today this shift.
[2019-01-24 11:27] VITALS: BP 107/69
--- NOTE | 2019-01-24 11:38 | HP ---
PATIENT: JILLIAN SINCLAIR MEDICAL RECORD: [id number] ACCOUNT: [id number] LOCATION:[address] : 58 ADMISSION DATE: 01/23/19 PCP: YURIDIA HARDING MD HISTORY AND PHYSICAL EXAMINATION DIAGNOSES: 1. Acute anterior myocardial infarction. 2. Coronary artery disease. 3. Previous multivessel PTCA and stent. 4. Hypertension. 5. Hyperlipidemia. HISTORY OF PRESENT ILLNESS: Mr. Sinclair is known to us with multivessel PTCA and stent, last presenting with an acute myocardial infarction approximately 2 weeks ago. At that time, he underwent PTCA of the LAD by Dr. Aleman. He had no change in his medications. He did well until today. He had acute onset of severe chest discomfort with diaphoresis. EKG is compatible with repeat acute anterior myocardial infarction. He was given nitro and heparin in the Emergency Room. His pain abated dramatically, but he still has pain at 1/10. PHYSICAL EXAMINATION: CONSTITUTIONAL/GENERAL APPEARANCE: Well nourished, well developed, appears stated age. EYES: Lids and conjunctivae noninjected. No discharge. No pallor. ENT: Lips within normal limit. No cyanosis. No pallor. NECK: Carotid arteries, bilateral normal upstroke. No bruits. No thrills. No jugular venous pressure or distention. CERVICAL LYMPH NODES: Nontender. Nonenlarged. THYROID: Not enlarged. No nodules. CARDIOVASCULAR: Precordial exam, nondisplaced. No heaves or pericardial thrills. Rate and rhythm, regular. Heart sounds, normal S1, normal S2. No S3, no gallop, no rub. Systolic murmur, not heard. Diastolic murmur, not heard. RESPIRATORY: Respiratory effort, unlabored. Normal curvature. No thoracic deformity. No chest wall tenderness. Percussion, resonant. Auscultation, clear. No wheezes, no rales, no rhonchi. ABDOMEN: Soft, nondistended, nontender. No abdominal pain, no vomiting and normal appetite. MUSCULOSKELETAL: No joint tenderness, normal gait, normal tone. SKIN: Warm and dry. OVERALL IMPRESSION: Acute anterior myocardial infarction, much better after heparin and nitro. Most likely, he has an acute thrombotic event again. We will proceed with coronary angiography. Further care depends upon findings of the angiography. TRANSINT:[id number] Voice Confirmation ID: [id number] DOCUMENT ID: [id number] HISTORY AND PHYSICAL [id number] JILLIAN SINCLAIR JEFFREY MD at 1138 CC: [id number] DICTATION DATE: 01/23/19 1359 FRUIT PICKER: 01/23/19 1417 ADM IN [place] [id number] [place] [address]
[2019-01-24] MEDS ORDERED: EFFIENT10 MG PO (12:10)
--- NOTE | 2019-01-24 12:11 | NUR ---
TRYING TO CALL [facility] IN [place] BUT LINE IS STILL BUSY. NON STATINS UPON DISCHARGE PATIENT HAS AN ALLERGY TO IT.
--- NOTE | 2019-01-24 12:15 | NUR ---
CALLED AND SPOKE WITH AGUSTIN AT THE PHARMACY.
--- NOTE | 2019-01-24 12:30 | NUR ---
DC GIVEN TO PT
--- NOTE | 2019-01-24 12:54 | NUR ---
DC HOME PER PERSONAL CAR
--- NOTE | 2019-01-24 13:08 | MORECARE ---
CASE MANAGEMENT DISCHARGE SUMMARY PATIENT: JILLIAN SINCLAIR UNIT: [id number] ADM DATE: 01/23/19 AGE: 58 : 58 SEX: M ROOM/BED: D.2941 AUTHOR: KONRAD MAI PHYSICIAN: REFERRING PHYSICIAN: LESIA HAYWARD MD DATE OF SERVICE: 01/24/19 Discharge Plan Patient Name: JILLIAN SINCLAIR Facility: [facility]:[place] : 1960 Planned Disposition: Home Anticipated Discharge Date: 01/24/19 Discharge Date: 01/24/2019 Expected LOS: 1 Initial Reviewer: [email or web address] Initial Review Date: 01/24/2019 Generated: 01/24/19 2:07 pm DCP- Discharge Planning Updated by [email or web address]: Shayne Garibay on 01/24/19 12:[address] Patient Name: JILLIAN SINCLAIR Admission Status: ER Accout number: [id number] Admission Date: 01-23-2019 : 1960 Admission Diagnosis: Attending: KEO HAYWARD Current LOS: 1 Anticipated DC Date: 01-24-2019 Planned Disposition: Home Primary Insurance: [facility] [employer] Discharge Planning Comments: CM ATTEMPTED TO MEET WITH PT FOR INITIAL ASSESSMENT OF DISCHARGE NEEDS. PT WAS NOT IN ROOM AT APPROXIMATELY 1243 HOURS. PT HAD DISCHARGED HOME AND LEFT HOSPITAL. Electric Organ Checker: Shayne Garibay Patient Name: JILLIAN SINCLAIR Page [phone] at 1308 All edits/amendments must be made on the electronic document DICTATION DATE: 01/24/19 1307 SHELLFISH HARVESTER: ARACELI 01/24/19 1307 RPT#: [id number] DC DATE:01/24/19 STATUS: DIS IN [facility] [address] [place] [address] END OF REPORT
--- NOTE | 2019-02-01 11:40 | OP ---
PATIENT NAME: JILLIAN SINCLAIR MEDICAL RECORD: [id number] :58 LOCATION:D.M2 D.2124 ADMISSION DATE:01/23/19 SURGEON: LESIA HAYWARD MD DATE OF OPERATION: 01/23/2019 PROCEDURES: 1. PTCA and stent of LAD. 2. Left heart catheterization. 3. Selective coronary angiography. 4. Left ventriculogram. INDICATION: Acute anterior myocardial infarction. DESCRIPTION OF PROCEDURE: After informed consent was obtained and after a detailed explanation of the risks, benefits as well as alternative therapies, the patient elected to proceed with angiogram and angioplasty. The left femoral area was prepped and draped in normal sterile fashion. Left femoral artery was cannulated via modified Seldinger technique with placement of 6-Polish sheath. All catheters exchanged through this sheath. FINDINGS: Left ventriculogram was performed in standard 30-degree CASILLAS view, reveals anteroapical hypokinesis. Overall ejection fraction 40%. SELECTIVE CORONARY ANGIOGRAPHY: 1. Left main is with no significant angiographic disease. 2. Left anterior descending has previously placed stents proximally. There appears to be a dissection proximal to the previously placed stents. After this, there is an area of thrombus that remains. 3. Left circumflex has previously placed stents. These are widely patent with no significant restenosis. No disease elsewise throughout the left circumflex or its branches. 4. The right coronary has previously placed stents. These are widely patent with minimal in-stent restenosis. No disease elsewise throughout the RCA or its branches. PTCA AND STENT OF THE LAD: The stent covering the area of dissection proximally and thrombus with a 3.5 x 26-mm Stites. Result was 0% residual stenosis. OVERALL IMPRESSION: Successful PTCA and stent of the LAD of what appears to be a dissection flap proximal to the previously placed stents with a thrombus in the previously placed stents to 0% residual stenosis. No further dissection flap. TRANSINT:[id number] Voice Confirmation ID: [id number] DOCUMENT ID: [id number] LESIA HAYWARD MD at 1140 CC: [id number] DICTATION DATE: 01/23/19 1401 DOUBLE BASS PLAYER: 01/23/19 1436 DIS IN 01/24/19 [place] [address]
--- NOTE | 2019-02-01 11:40 | DS ---
PATIENT:JILLIAN BELTRAN :58 MEDICAL RECORD: [id number] DISCHARGE SUMMARY ADMISSION DATE: 01/23/19 DISCHARGE DATE: 01/24/19 DISCHARGE DIAGNOSES: 1. Acute anterolateral myocardial infarction. 2. Coronary artery disease. 3. Acute stent thrombosis to left anterior descending. 4. Hypertension. 5. Hyperlipidemia. HOSPITAL COURSE: Mr. Beltran presents for the second time with acute thrombosis of the LAD stent. It appears that there was a dissection flap in front of the previously placed stents. He underwent PTCA stent of the LAD. No further thrombus burden. No further anginal symptomatology. He was discontinued on his Plavix and this was changed to Effient 10 mg a day. He will follow up with [facility] as previously scheduled. TRANSINT:[id number] Voice Confirmation ID: [id number] DOCUMENT ID: [id number] LESIA HAYWARD MD at 1140 CC: [id number] DICTATION DATE: 01/24/19 1139 RESIDENTIAL CARE OFFICER: 01/25/19 0029 DIS IN 01/24/19 [place] [id number] [place] [address]
== END 2019-01-24 12:55 | disposition home or self-care (01) | DRG 247 ==
LOC: D.ER 12:15 → D.M2 13:24
PROVIDERS: Emergency Medicine; ADMIT Internal Medicine Interventional Cardiology; ATTEND Internal Medicine Interventional Cardiology
PROC: B2111ZZ Fluoroscopy of Multiple Coronary Arteries using Low Osmolar Contrast (ICD-10-PCS; 2019-01-23)
PROC: B2151ZZ Fluoroscopy of Left Heart using Low Osmolar Contrast (ICD-10-PCS; 2019-01-23)
PROC: 027034Z Dilation of Coronary Artery, One Artery with Drug-eluting Intraluminal Device, Percutaneous Approach (ICD-10-PCS; principal; 2019-01-23 13:29)
PROC: 4A023N7 Measurement of Cardiac Sampling and Pressure, Left Heart, Percutaneous Approach (ICD-10-PCS; 2019-01-23 13:29)
DX: I21.09 ST elevation (STEMI) myocardial infarction involving other coronary artery of anterior wall (principal); I25.10 Atherosclerotic heart disease of native coronary artery without angina pectoris; I10 Essential (primary) hypertension; E78.5 Hyperlipidemia, unspecified

== ENCOUNTER 2019-01-27 17:53 | Observation (INO) | payer MEDICARE ==
[~2019-01-27] VITALS: Ht 172.7 cm; Wt 97.0 kg
[~2019-01-27 17:53] MED LIST changes: +EFFIENT10 MG PO
[2019-01-27 18:19] LABS: BASOPHILS 0.8 % (0-2); EOSINOPHILS 4.8 % (0-7); HEMATOCRIT 48.7 % (42.0-54.0); IMMATURE GRANULOCYTES 0.1 % (0-5); MCH 29.2 pg (26.0-34.0); MCHC 32.9 g/dL (31.0-37.0); MCV 88.9 fL (80.0-100.0); MEAN PLATELET VOLUME 10.1 fL (7.4-10.4); MONOCYTES 9.5 % (2-11); NEUTROPHILS 59.8 % (40-80); RBC 5.48 10x6/uL (4.20-6.10); RDW 13.9 % (11.5-14.5); WBC 7.3 10x3/uL (4.8-10.8)
[2019-01-27 18:27] LABS: PLATELET COUNT 232 10x3/uL (130-400)
[2019-01-27 18:31] LABS: APTT 25.3 SECONDS (22.8-39.4); INR 1.03 (0.85-1.17)
[2019-01-27 18:40] LABS: CALC OSMOLALITY 279 mosm/kg (275-300); CALCIUM 8.5 mg/dL (8.5-10.1); CARBON DIOXIDE 26.3 mmol/L (21.0-32.0); CHLORIDE - SERUM 103 mmol/L (98-107); CREATININE - SERUM 0.8 mg/dL (0.6-1.3); GLUCOSE 227 mg/dL (74-106); POTASSIUM - SERUM 3.9 mmol/L (3.5-5.1); SODIUM 136 mmol/L (136-145); UREA NITROGEN 15 mg/dL (7-18); eGFR NON AFRICAN AMERICAN > 90 mL/min (90-120)
[2019-01-27 19:00] VITALS: BP 106/55
[2019-01-27 19:01] LABS: ALKALINE PHOSPHATASE 102 U/L (46-116); ALT (SGPT) 33 U/L (10-68); BILIRUBIN - TOTAL 0.51 mg/dL (0.2-1.3); CKMB 2.2 U/L (0.0-3.6); CREATINE KINASE 187 UL (21-232); MAGNESIUM - SERUM 1.9 mg/dL (1.8-2.4)
[2019-01-27 19:05] LABS: TROPONIN-I 0.101 ng/mL (0.000-0.060)
[2019-01-27 19:30] VITALS: BP 113/64
[2019-01-27 22:06] VITALS: BP 99/69; BMI 32.5
[2019-01-27 23:20] VITALS: BP 100/54
[2019-01-28 02:08] LABS: CKMB 2.2 U/L (0.0-3.6); CREATINE KINASE 171 UL (21-232); TROPONIN-I 0.081 ng/mL (0.000-0.060)
[2019-01-28 04:00] VITALS: BP 100/64
[2019-01-28 04:32] LABS: BASOPHILS 0.6 % (0-2); HEMATOCRIT 47.2 % (42.0-54.0); HEMOGLOBIN 15.3 g/dL (13.5-17.5); IMMATURE GRANULOCYTES 0.1 % (0-5); LYMPHOCYTES 33.3 % (15-50); MCHC 32.4 g/dL (31.0-37.0); MCV 89.4 fL (80.0-100.0); MEAN PLATELET VOLUME 10.2 fL (7.4-10.4); MONOCYTES 10.9 % (2-11); NEUTROPHILS 51.1 % (40-80); PLATELET COUNT 222 10x3/uL (130-400); RBC 5.28 10x6/uL (4.20-6.10); RDW 14.1 % (11.5-14.5); WBC 7.2 10x3/uL (4.8-10.8)
[2019-01-28 05:11] LABS: CALC OSMOLALITY 274 mosm/kg (275-300); CALCIUM 8.5 mg/dL (8.5-10.1); CARBON DIOXIDE 25.8 mmol/L (21.0-32.0); CHLORIDE - SERUM 105 mmol/L (98-107); CKMB 1.9 U/L (0.0-3.6); CREATINE KINASE 170 UL (21-232); CREATININE - SERUM 0.7 mg/dL (0.6-1.3); GLUCOSE 195 mg/dL (74-106); MAGNESIUM - SERUM 2.3 mg/dL (1.8-2.4); PHOSPHOROUS 3.8 mg/dL (2.5-4.9); POTASSIUM - SERUM 3.8 mmol/L (3.5-5.1); PRO BNP 2100 pg/mL (0-125); SODIUM 135 mmol/L (136-145); TROPONIN-I 0.076 ng/mL (0.000-0.060); UREA NITROGEN 12 mg/dL (7-18); eGFR NON AFRICAN AMERICAN > 90 mL/min (90-120)
--- NOTE | 2019-01-28 07:15 | NUR ---
RECEIVED PT IN BED EYES CLOSED RESP UNLABORED SKIN W/D NAD NOTED
[2019-01-28 09:17] VITALS: BP 114/77
[2019-01-28 09:58] VITALS: Ht 172.7 cm; Wt 97.0 kg
--- NOTE | 2019-01-28 11:45 | NUR ---
REVIEWED DISCHARGE INSTRUCTIONS WITH PT STATES UNDERSTANDING COPY GIVEN DCD SALINE LOCK TO LT HAND WITH IV CATHETER INTACT SITE FREE OF REDNESS OR EDEMA PT DISCHARGED HOME IN STABLE CONDITION WITH ALL PERSONAL BELONGINGS LEFT UNIT VIA W/C
== END 2019-01-28 11:45 | disposition home or self-care (01) ==
LOC: D.ER 17:53 → D.M2 19:32 → OBSVTIME 19:32 → D.M2 19:32
PROVIDERS: Emergency Medicine; Family Medicine; ADMIT Internal Medicine Nephrology; ATTEND Internal Medicine Nephrology
DX: I25.119 Atherosclerotic heart disease of native coronary artery with unspecified angina pectoris (principal); I50.23 Acute on chronic systolic (congestive) heart failure; E11.9 Type 2 diabetes mellitus without complications; E78.5 Hyperlipidemia, unspecified; I48.91 Unspecified atrial fibrillation; G47.33 Obstructive sleep apnea (adult) (pediatric)

== ENCOUNTER → 2019-04-19 09:28 | Outpatient (CLI) | payer MEDICARE ==
[2019-01-28 09:58] VITALS: BMI 32.5
--- NOTE | 2019-04-21 13:25 | EC ---
PATIENT:JILLIAN SINCLAIR DATE OF SERVICE: 04/19/19 SEX: M MEDICAL RECORD: [id number] DATE OF : 58 LOCATION:[facility] AGE OF PATIENT: 58 ADMISSION DATE: 04/19/19 REFERRING PHYSICIAN: INTERPRETING PHYSICIAN: YOLANDA MANUEL MD ECHOCARDIOGRAM REPORT ECHO CHARGES 4 ECHO COMPLETE Date: 04/19/19 CLINICAL DIAGNOSIS: CAD/ASSESS EF HX HTN/DM ECHOCARDIOGRAPHIC MEASUREMENTS (adult normal given) AC root (d.<3.7cm) 4.1 cm LV Septum d (<1.2 cm> 1.5 cm Valve Excursion 1.5 cm LV Septum (systole) 1.6 cm Left Atria (s.<4.0cm> 4.1 cm LVPW d(<1.2cm) 1.7 cm RV (d.<2.3cm) 4.2 cm LVPW (sytole) 2.1 cm LV diastole(<5.6CM) 6.1 cm MV E-F(>70mm/sec) cm LV systole 4.4 cm LVOT Diameter 2.0 cm MV exc.(>10mm) 1.9 cm Est.ejection fraction (50-75%) % DOPPLER: LVIT cm/sec A 87.0 cm/sec E 67.0 cm/sec LA cm/sec RVSP 27 mmHg LVOT 108 cm/sec AOP1/2T m/s Asc. Ao 148 cm/sec RVOT 108 cm/sec RA cm/sec PA 128 cm/sec AV Gradient Peak 8.79 mmHg AV Mean 5.29 mmHg AV Area 2.7 cm MV Gradient Peak 3.56 mmHg MV Mean 1.00 mmHg MV Area cm COMMENTS: Clinical Specialty Rep: 2 CATHERINE JARVIS Artists' Model: 3 Dr. Winters TAPE# PACS Pericardial Effusion N DATE OF SERVICE: Adequate 2D, color flow imaging, spectral Doppler, and M-Mode. LVH is present. LV internal dimensions are normal. Wall motion is normal. EF is greater than or equal to 50% to 55%. Aortic valve is tricuspid. No evidence of stenosis on Doppler interrogation. Left atrium mildly dilated 4.1 cm. Mitral valve shows no prolapse. Trace MR. Right-sided chambers are grossly normal. Trace TR. ECHOCARDIOGRAM REPORT [id number] JILLIAN SINCLAIR TRANSINT:[id number] Voice Confirmation ID: [id number] DOCUMENT ID: [id number] YOLANDA MANUEL MD at 1325 CC: [id number] DICTATION DATE: 04/19/191417 FINISHING ROOM SUPERVISOR: 04/19/191954 DEP CLI 04/19/19 [place] [id number] [place] [id number]
== END | disposition home or self-care (01) ==
LOC: D.HCCARDIO 02-28 11:30 → D.HCCECHO 02-28 11:30
PROVIDERS: ATTEND Internal Medicine Interventional Cardiology
DX: I25.10 Atherosclerotic heart disease of native coronary artery without angina pectoris (principal)

== ENCOUNTER 2019-06-17 12:20 | Observation (INO) | payer MEDICARE ==
[~2019-06-17] VITALS: Ht 172.7 cm; Wt 99.0 kg
--- NOTE | ~2019-06-17 | HEMODYNAMI ---
PATIENT:JILLIAN SINCLAIR MEDICAL RECORD: [id number] : 58 LOCATION[facility] [address] [id number] ADMISSION DATE: 06/17/19 Generatedon:06/18/201911:18 Patient name: JILLIAN SINCLAIR Patient #: [id number] SSN: [id number] : 1960 Date of study: 06/18/2019 Page: Of Hemodynamic Procedure Report Patient Data Patient Demographics Procedure consent was obtained First Name: JILLIAN Gender: Male Last Name: DOTTIE : 1960 [facility] Initial: KEN Age: 58 year(s) Patient #: [id number] Race: SSN: [id number] Additional ID: [id number] Contact details [address]: [address] [place] [address] cutoff State: [place] City: [place] Zip code: [address] Past Medical History Allergies Allergen Reaction Date Comments Reported Other allergy 01/22/2018 Niacin, Lipitor Statins 01/27/2018 Other allergy 08/26/2018 Niacin, Ewhcjqz-mnj-wnm Reductase inhibitor Other allergy 08/27/2018 statins, niacin Other allergy 06/18/2019 statins,niacin Admission Admission Data Admission Date: 06/17/2019 Admission Time: 14:37 Arrival Date: 06/18/2019 Arrival Time: 0:00 Room #: [facility] Insurance Payor: Medicare [facility] #: [id number] Height (in.): 68 BSA: 2.12 (m2) Height (cm.): 172.72 BMI: 33.3 (kg/m2) Weight (lbs.): 219 Weight (kg.): 99.34 Lab Results Lab Result Date: 06/18/2019 Lab Result Time: 0:00 Biochemistry Name Units Result Min Max BUN mg/dl 12 --(-*--)-- 7 18 CK-MB ng/ml 2.8 --(---*)-- 0 3.6 Creatinine mg/dl 0.8 --(-*--)-- 0.6 1.3 eGFR ml/min 90 --(*---)-- 90 120 NONAFRICAN Troponin l ng/ml 0.017 --(-*--)-- 0 0.06 CBC Name Units Result Min Max Hematocrit % 48 --(-*--)-- 42 54 Hemoglobin g/dl 15.6 --(--*-)-- 13.5 17.5 Procedure Procedure Types Cath Procedure Diagnostic Procedure [facility] w/Coronaries Sedation Charges Moderate Sedation up to 15 minutes Procedure Description Procedure Date Procedure Date: 06/18/2019 Procedure Start Time: 11:02 Procedure End Time: 11:16 Procedure Staff Name Function Mikel Aleman MD Performing Physician Meri Loera RN Nurse Justina Shoemaker RT Scrub Millie Watts RT Monitor Maria Ruth RT Salvage Grinder Procedure Data Cath Procedure Fluoroscopy Diagnostic fluoroscopy Total fluoroscopy Time: 1.8 time: 1.8 min min Diagnostic fluoroscopy Total fluoroscopy dose: 824 dose: 824 mGy mGy Contrast Material Contrast Material Type Amount (ml) Isovue 300 76 Entry Location Entry Primary Successful Side Size Upsize Upsize Entry Closure Succes sful Closure Location (Fr) 1 (Fr) 2 (Fr) Remarks Device Remarks Femoral Right 5 Fr Exoseal artery Estimated blood loss: 10 ml Diagnostic catheters Device Type Used For End Catheter Placement MULTIPACK JL 4.0 5Fr Procedure catheter MULTIPACK 3DRC 5Fr Procedure catheter MULTIPACK Pigtail 5 Fr Ventriculography catheter Procedure Complications No complications Procedure Medications Medication Administration Route Dosage 0.9% NaCl I.V. 100 ml/hr Oxygen etCO2 Nasal cannula 2 l/min Lidocaine 2% added to field 20 Heparin Flush Bag added to field 2 bags (1000units/500ml NS) Versed I.V. 2 mg Fentanyl I.V. 50 mcg Oxygen 6 l/min Versed I.V. 2 mg Fentanyl I.V. 50 mcg Hemodynamics Rest BSA: 2.12 (m2) HGB: 15.6 (g/dl) O2 Consumption: Estimated: 249.67 (ml/min) O2 Co nsumption indexed: Estimated:117.77 (ml/min/m) Heart Rate: 70 (bpm) Pressure Samples Time Site Value (mmHg) Purpose Heart Use Rate(bpm) 11:11 LV 120/5,44 Snapshot 41 11:12 AO 122/81(90) Pullback 45 Gradients Valve Time Site Site 2 Mean SEP/DFP Peak To Heart Use 1 (mmHg) (sec/min) Peak Rate (mmHg) (bpm) Aortic 11:12 LV AO 11 11 45 122/81(90) Calculations Valve P-P Mean Valve Index Valve Source Name Gradient Area Flow (cm2) Aortic 11 11 Snapshots Pre Cath Intra NCS Post Cath Vital Signs Time Heart Resp SPO2 etCO2 NIBP (mmHg) Rhythm Pain Sedation Rate (ipm) (%) (mmHg) Status Level (bpm) 10:50:24 74 13 89 48 108/69(89) NSR 0 (11) 10(A) , No pain 10:54:40 71 13 90 38.4 114/71(89) NSR 0 (11) 10(A) , No pain 10:59:00 69 12 89 50.5 112/62(81) NSR 0 (11) 10(A) , No pain 11:03:20 69 12 90 45.2 108/62(85) NSR 0 (11) 10(A) , No pain 11:07:38 71 13 87 43.7 116/71(108) NSR 0 (11) 9(A) , No pain 11:12:37 70 14 88 52.8 Measuring NSR 0 (11) 9(A) , No pain 11:12:57 72 13 88 45.3 113/68(101) NSR 0 (11) 10(A) , No pain 11:17:24 71 11 89 13.5 114/71(100) NSR 0 (11) 10(A) , No pain Medications Time Medication Route Dose Verified Delivered Reason Notes Eff ectiveness by by 10:49:22 0.9% NaCl I.V. 100 Mikel Meri used for ml/hr Ash Loera racecourse barrier attendant 10:49:29 Oxygen etCO2 2 Mikel Meri used for Nasal l/min Ash Loera procedure cannula RN 10:49:35 Lidocaine 2% added 20ml Mikel Mikel for local to vial Ash Aleman MD anesthetic field 10:49:39 Heparin Flush added 2 Mikel Mikel used for Bag to bags Ash Aleman MD procedure (1000units/500ml field NS) 10:50:55 Oxygen simple 6 Mikel Meri used for mask l/min Ash Loera racecourse barrier attendant 10:58:31 Versed I.V. 2 mg Mikel Meri for Ash Loera sedation RN 10:58:36 Fentanyl I.V. 50 Mikel Meri for mcg Ash Loera sedation RN 11:03:20 Versed I.V. 2 mg Mikel Meri for Ash Loera sedation RN 11:03:24 Fentanyl I.V. 50 Mikel Meri for mcg Ash Loera sedation foster care social worker Log Time Note 10:31:45 Procedure Status Urgent Heart Cath (IP). 10:31:48 Time tracking: Call back (After hours or weekends) 10:31:51 Plan of Care:Hemodynamics will remain stable., Cardiac rhythm will remain stable., Comfort level will be maintained., Respiratory function will remain adequate., Patient/ family verbilizes understanding of procedure., Procedure tolerated without complication., Recovers from procedure without complications.. 10:31:54 Meri Loera RN sent for patient. Start room use. 10:31:58 H&P Date Dictated: 06/18/2019 ER History on chart.. 10:40:54 Lab Result : Creatinine 0.8 mg/dl 10:40:54 Lab Result : BUN 12 mg/dl 10:40:54 Lab Result : Hemoglobin 15.6 g/dl 10:40:54 Lab Result : Hematocrit 48 % 10:40:54 Lab Result : eGFR NONAFRICAN 90 ml/min 10:40:54 Lab Result : CK-MB 2.8 ng/ml 10:40:54 Lab Result : Troponin l 0.017 ng/ml 10:41:10 Arrival Date: 06/18/2019 12:00:00 AM 10:41:25 Patient Height : 68 inches 10:41:29 Patient Weight : 219 lbs 10:42:36 Insurance Payor : Medicare 10:42:42 Informed consent obtained and on chart 10:44:58 Lab results completed and on chart. 10:45:23 Patient allergic to Other allergystatins,niacin 10:45:55 Patient received from Med II to CCL 1 Alert and oriented. Tansferred to table in Supine position. 10:45:57 Warm blankets applied, and usman hugger turned on for patient comfort. 10:45:57 Correct patient and procedure confirmed by team. 10:46:00 ECG and BP/O2 sat monitors applied to patient. 10:49:10 Vital chart was started 10:49:22 0.9% NaCl 100 ml/hr I.V. was administered by Meri Loera RN; used for procedure; Verbal order read back and verified. 10:49:29 Oxygen 2 l/min etCO2 Nasal cannula was administered by Meri Loera RN; used for procedure; Verbal order read back and verified. 10:49:35 Lidocaine 2% 20ml vial added to field was administered by Mikel Aleman MD; for local anesthetic; Verbal order read back and verified. 10:49:39 Heparin Flush Bag (1000units/500ml NS) 2 bags added to field was administered by Mikel Aleman MD; used for procedure; Verbal order read back and verified. 10:50:08 Baseline sample Acquired. 10:50:13 Full Disclosure recording started 10:50:15 Pre-procedure instructions explained to patient. 10:50:18 Family unavailable. 10:50:20 Patient NPO since Midnight. 10:50:22 Is the patient allergic to Iodine/contrast media? No. 10:50:24 Was the patient premedicated? Yes 10:50:25 Is patient on blood thinner?Yes 10:50:28 ACC The patient was administered the following blood thiners within the last 24 hours: ACCEffient 10:50:35 Patient diabetic? No. 10:50:39 Snore? Yes 10:50:40 Sleep apnea? No 10:50:49 Airway obstruction? Unknown low sats 10:50:55 Oxygen 6 l/min simple mask was administered by Meri Loera RN; used for procedure; Verbal order read back and verified. 10:50:57 Dentures? No ? 10:51:04 Patient pain scale 1/10 pressure. 10:51:17 IV patent on arrival in left forearm with 0.9% NaCl at [facility]. 10:51:26 Right groin area was prepped with chlora-prep and draped in sterile fashion 10:51:28 Alarms reviewed by R. N. 10:51:29 Sharps counted by scrub and verified by R.N. 10:51:31 Physician paged 10:51:38 Use device set Femoral Dx 10:51:40 ACIST Syringe (00616) opened to sterile field. 10:51:40 Bag Decanter (2002S) opened to sterile field. 10:51:40 Medline Cath Pack ([id number]) opened to sterile field. 10:51:42 ACIST Hand Control (53115) opened to sterile field. 10:51:42 ACIST Manifold (78476) opened to sterile field. 10:51:43 DIAGNOSTIC Multipack 5Fr catheter set (TD0102) opened to sterile field. 10:51:46 SHEATH 5FR Clayton (DKY155) opened to sterile field. 10:51:46 EMERALD Guide Wire (495-194) opened to sterile field. 10:52:06 1) 90+ Normal kidney functon but urine findings or structural abnormalities or genetic trait point to kidney disease. 10:52:13 Physical assessment completed. ASA score P 3 - A patient with severe systemic disease as per Mikel Aleman MD. 10:52:16 Maximum allowable contrast dose (3.7 X eGFR X 0.75)250 ml. 10:57:05 Physician arrived 10:57:06 --------ALL STOP TIME OUT------ 10:57:07 Final Timeout: patient, procedure, and site verified with staff and physician. All members of the team are in agreement. 10:57:09 Right groin site verified by team. 10:57:14 Fire Safety Assessment: A--An alcohol-based skin anteseptic being used preoperatively., C--Open oxygen or nitrous oxide is being used., D--An ESU, laser, or fiber-optic light is being used. 10:57:20 Sedation plan: IV Moderate Sedation Medication:Versed, Fentanyl 10:58:20 Pt arrived to w/ SpO2 86% on RA. Simple mask placed at 6L. MD aware. 10:58:31 Versed 2 mg I.V. was administered by Meri Loera RN; for sedation; Verbal order read back and verified. 10:58:36 Fentanyl 50 mcg I.V. was administered by Meri Loera RN; for sedation; Verbal order read back and verified. 11:02:18 Procedure started. 11:02:28 Local anesthetic to right femoral artery with Lidocaine 2% by Mikel Aleman MD.INITIAL ACCESS ONLY 11:02:41 A 5 Fr sheath was inserted into the Right Femoral artery 11:03:20 Versed 2 mg I.V. was administered by Meri Loera RN; for sedation; Verbal order read back and verified. 11:03:24 Fentanyl 50 mcg I.V. was administered by Meri Loera RN; for sedation; Verbal order read back and verified. 11:05:44 A MULTIPACK JL 4.0 5Fr catheter was advanced over the wire and used for Procedure. 11:05:46 LCA angiography performed. 11:07:40 Catheter removed. 11:07:49 A MULTIPACK 3DRC 5Fr catheter was advanced over the wire and used for Procedure. 11:07:54 RCA angiography performed. 11:10:41 Catheter removed. 11:10:53 A MULTIPACK Pigtail 5 Fr catheter was advanced over the wire and used for Ventriculography. 11:10:57 Zero performed for pressure channel P1 11:11:00 Zero performed for pressure channel P1 11:12:15 EF : 40 % 11:12:21 LV gram done using CASILLAS 11:13:35 Catheter removed. 11:13:37 EXOSEAL 5Fr (EX500) opened to sterile field. 11:13:39 Tegaderm 4 x 4 (1626W) opened to sterile field. 11:14:04 Sheath removed intact; hemostasis achieved with Exoseal to the Right Femoral artery. 11:14:09 Procedure ended.(Physican Out) 11:14:30 Fluoroscopy time 01.80 minutes. 11:14:35 Fluoroscopy dose: 824 mGy 11:14:35 Flurop Dose total: 824 11:14:40 Dose Area Product 36709 mGy/cm. 11:14:45 Contrast amount:Isovue 300 76ml. 11:14:55 Maximum allowable dose exceeded? No. 11:14:57 Insertion/operative site no bleeding no hematoma. 11:15:02 Post-op/insertion site Right Femoral artery dressed using a 4 x 4 and Tegaderm. 11:15:10 Post-procedure physical assessment completed. ASA score P 3 - A patient with severe systemic disease as per Mikel Aleman MD. 11:15:35 Post procedure rhythm: unchanged. 11:15:39 Estimated blood loss: 10 ml 11:15:41 Post procedure instruction explained to patient.Patient verbalizes understanding. 11:16:25 Procedure type changed to Cath procedure, Diagnostic procedure, LHC, LHC w/Coronaries, Sedation Charges, Moderate Sedation up to 15 minutes 11:16:27 Procedure and supply charges have been captured, reviewed, submitted and are correct. 11:16:41 Procedure Complication : No complications 11:16:44 Vital chart was stopped 11:16:47 [facility] Findings: mild to moderate CAD (<70%) 11:16:53 Report given to [facility] II. 11:16:56 Patient transfered to Med II with Bed. 11:16:59 Procedure ended. 11:16:59 Full Disclosure recording stopped 11:17:02 End room use (Document Last) 11:17:35 End room use (Document Last) 11:18:01 End room use (Document Last) Device Usage Item Name Manufacture Quantity Catalog Hospital Part Current Minimal L ot# / Number Charge Number Stock Stock Serial# Code ACIST Acist 1 17893 509191 [id number] 311932 20 Syringe Medical (13568) Systems Inc Bag Microtek 1 224692 71583 914251 5 Decanter Medical Inc. () Medline Medline 1 [id number] 080717 64068 785875 5 Cath Pack ([id number]) ACIST Hand Acist 1 95351 815298 512526 510496 5 Control Medical (90564) Systems Inc ACIST Acist 1 26587 929039 770793 210862 5 Manifold Medical (33183) Systems Inc DIAGNOSTIC Cardinal 1 ZL2086 724035 18033 106733 30 Multipack Health 5Fr catheter set (LO2841) SHEATH 5FR Terumo 1 ZFG188 430334 799015 096909 5 Clayton (ASE736) EMERALD Cardinal 1 502-455 897677 706343 476723 5 Guide Wire Health (502-455) MULTIPACK Cardinal 1 037875 5 JL 4.0 5Fr Health catheter MULTIPACK Cardinal 1 891930 5 3DRC 5Fr Health catheter MULTIPACK Cardinal 1 444644 5 Pigtail 5 Health Fr catheter EXOSEAL 5Fr Cardinal 1 EX500 742951 074450 236598 10 (EX500) Health Tegaderm 4 3M 1 1626W 849798 347477 046685 5 x 4 (1626W) Signature Audit [place] Stage Time Signature Unsigned Intra-Procedure 06/18/2019 Millie Watts 11:17:35 AM RT(R) Intra-Procedure 06/18/2019 Meri Loera 11:18:01 AM RN Intra-Procedure 06/18/2019 Mikel Aleman MD 11:18:24 AM [facility] [address] [place] [address]
[2019-06-17 12:59] VITALS: BP 114/65
[2019-06-17 13:18] LABS: BASOPHILS 0.4 % (0-2); EOSINOPHILS 3.8 % (0-7); HEMATOCRIT 48.2 % (42.0-54.0); HEMOGLOBIN 16.2 g/dL (13.5-17.5); IMMATURE GRANULOCYTES 0.1 % (0-5); LYMPHOCYTES 27.2 % (15-50); MCH 29.6 pg (26.0-34.0); MCHC 33.6 g/dL (31.0-37.0); MCV 88.1 fL (80.0-100.0); MEAN PLATELET VOLUME 10.5 fL (7.4-10.4); MONOCYTES 6.8 % (2-11); NEUTROPHILS 61.7 % (40-80); PLATELET COUNT 216 10x3/uL (130-400); RBC 5.47 10x6/uL (4.20-6.10); RDW 13.7 % (11.5-14.5)
[2019-06-17 13:37] LABS: APTT 26.9 SECONDS (22.8-39.4); CALC OSMOLALITY 275 mosm/kg (275-300); CARBON DIOXIDE 25.5 mmol/L (21.0-32.0); CHLORIDE - SERUM 101 mmol/L (98-107); CREATININE - SERUM 0.8 mg/dL (0.6-1.3); GLUCOSE 207 mg/dL (74-106); INR 1.02 (0.85-1.17); POTASSIUM - SERUM 3.8 mmol/L (3.5-5.1); PROTIME 13.4 SECONDS (11.6-15.0); SODIUM 135 mmol/L (136-145); UREA NITROGEN 12 mg/dL (7-18); eGFR NON AFRICAN AMERICAN > 90 mL/min (90-120)
[2019-06-17 13:54] LABS: ALBUMIN 3.4 g/dL (3.4-5.0); ALKALINE PHOSPHATASE 85 U/L (30-120); ALT (SGPT) 21 U/L (10-68); BILIRUBIN - TOTAL 0.72 mg/dL (0.2-1.3); CKMB 3.4 U/L (0.0-3.6); CREATINE KINASE 143 UL (21-232); MAGNESIUM - SERUM 1.8 mg/dL (1.8-2.4); PROTEIN - SERUM 7.3 g/dL (6.4-8.2); TROPONIN-I < 0.017 ng/mL (0.000-0.060)
[2019-06-17 14:51] VITALS: BP 110/72
[2019-06-17] MEDS ORDERED: HUMALOG 30100 UNITS/ SC (15:28)
[2019-06-17] MEDS ORDERED: LEVEMIR IN100 UNITS/ SC (15:28)
[2019-06-17] MEDS ORDERED: CRESTOR5 MG PO (15:30)
[2019-06-17] MEDS ORDERED: BYSTOLIC10 MG PO (15:31)
[2019-06-17] MEDS ORDERED: ATIVAN1 MG PO (15:31)
--- NOTE | 2019-06-17 15:35 | NUR ---
RECIVED FROM ER PER WC TO ROOM 2122. ADMIT ASSESSMENT PER RN
[2019-06-17 19:44] LABS: CKMB 2.6 U/L (0.0-3.6); CREATINE KINASE 132 UL (21-232); TROPONIN-I < 0.017 ng/mL (0.000-0.060)
[2019-06-17 20:44] VITALS: BP 104/58
[2019-06-18 01:16] VITALS: BP 96/52
[2019-06-18 02:08] LABS: BASOPHILS 0.5 % (0-2); EOSINOPHILS 3.7 % (0-7); HEMOGLOBIN 15.6 g/dL (13.5-17.5); IMMATURE GRANULOCYTES 0.2 % (0-5); LYMPHOCYTES 30.5 % (15-50); MCH 28.9 pg (26.0-34.0); MCHC 32.5 g/dL (31.0-37.0); MCV 89.1 fL (80.0-100.0); MONOCYTES 7.8 % (2-11); NEUTROPHILS 57.3 % (40-80); PLATELET COUNT 201 10x3/uL (130-400); RBC 5.39 10x6/uL (4.20-6.10); RDW 13.9 % (11.5-14.5); WBC 9.9 10x3/uL (4.8-10.8)
[2019-06-18 02:13] VITALS: BP 104/58; BMI 33.2
[2019-06-18 02:57] LABS: ALBUMIN 3.3 g/dL (3.4-5.0); ALKALINE PHOSPHATASE 74 U/L (30-120); ALT (SGPT) 18 U/L (10-68); BILIRUBIN - TOTAL 0.77 mg/dL (0.2-1.3); CALCIUM 8.9 mg/dL (8.5-10.1); CARBON DIOXIDE 28.7 mmol/L (21.0-32.0); CHLORIDE - SERUM 104 mmol/L (98-107); CKMB 2.6 U/L (0.0-3.6); CREATINE KINASE 131 UL (21-232); CREATININE - SERUM 0.8 mg/dL (0.6-1.3); MAGNESIUM - SERUM 1.9 mg/dL (1.8-2.4); PHOSPHOROUS 5.1 mg/dL (2.5-4.9); POTASSIUM - SERUM 4.1 mmol/L (3.5-5.1); PROTEIN - SERUM 7.2 g/dL (6.4-8.2); SODIUM 139 mmol/L (136-145); UREA NITROGEN 12 mg/dL (7-18); eGFR NON AFRICAN AMERICAN > 90 mL/min (90-120)
[2019-06-18 02:58] LABS: CALC OSMOLALITY 278 mosm/kg (275-300); GLUCOSE 122 mg/dL (74-106); TROPONIN-I < 0.017 ng/mL (0.000-0.060)
[2019-06-18 05:45] VITALS: BP 107/53
[2019-06-18 07:49] LABS: CKMB 2.8 U/L (0.0-3.6); CREATINE KINASE 127 UL (21-232)
[2019-06-18 07:52] LABS: TROPONIN-I < 0.017 ng/mL (0.000-0.060)
[2019-06-18 08:58] VITALS: BP 123/75
--- NOTE | 2019-06-18 09:01 | NUR ---
AM MEDS GIVEN AT THIS TIME, WITH A SIP OF WATER. ALSO GAVE 1 NITRO, 4MG OF ZOFRAN AND 4MG OF MORPHINE FOR PAIN LEVEL OF 7/10. CONSENTS SIGNED BY PT AND PLACED ON CHART. PT DENIES ANY NEEDS AT THIS TIME. CALL LIGHT IN REACH,NAD NOTED, WILL CONTINUE TO MONITOR.
[2019-06-18 09:29] LABS: ALT (SGPT) 19 U/L (10-68); CALC OSMOLALITY 280 mosm/kg (275-300); CALCIUM 8.6 mg/dL (8.5-10.1); CARBON DIOXIDE 28.6 mmol/L (21.0-32.0); CHLORIDE - SERUM 104 mmol/L (98-107); CHOL - HDL RATIO 5.4 ratio (2.3-4.9); CHOLESTEROL, TOTAL 147 mg/dL (0-200); CREATININE - SERUM 0.9 mg/dL (0.6-1.3); GLUCOSE 128 mg/dL (74-106); HDL CHOLESTEROL 27 mg/dL (32-96); LDL CHOLESTEROL 86 mg/dL (0-100); LDL-HDL RATIO 3.2 ratio (1.5-3.5); POTASSIUM - SERUM 4.3 mmol/L (3.5-5.1); SODIUM 140 mmol/L (136-145); TRIGLYCERIDE 172 mg/dL (30-200); UREA NITROGEN 12 mg/dL (7-18); eGFR NON AFRICAN AMERICAN > 90 mL/min (90-120)
--- NOTE | 2019-06-18 10:43 | NUR ---
PT TO CATH.
--- NOTE | 2019-06-18 11:34 | NUR ---
RECEIVED PT BACK TO ROOM. PT STILL DROWSY BUT EASILY AROUSES TO VOICE. VITAL SIGNS STABLE, PLACED ON FREQUENT VITALS. DRESSING TO RT GROIN CDI. NO S/S OF HEMATOMA OR BLEEDING NOTED. BLOOD SUGAR OF 126, NO COVERAGE NEEDED PER S/S. PT DENIES ANY NEEDS AT THIS TIME. TO REMAIN FLAT IN THE BED UNTIL 1330. CALL LIGHT IN REACH, NAD NOTED, WILL CONTINUE TO MONITOR.
[2019-06-18 13:34] VITALS: Ht 172.7 cm; Wt 99.0 kg
--- NOTE | 2019-06-18 14:39 | NUR ---
PROVIDED VERBAL AND WRITTEN DISCHARGE TEACHING TO PT WHO VERBALIZED UNDERSTANDING REGARDING TEACHING. D/C LT AC IV WITH CATHETER TIP INTACT. HEART MONITOR REMOVED AND TAKEN TO CELLOPHANER. PT LEFT UNIT VIA WHEELCHAIR, RIDE WAITING DOWNSTAIRS.
== END 2019-06-18 14:46 | disposition home or self-care (01) ==
LOC: D.ER 12:20 → D.M2 14:37 → OBSVTIME 14:48 → D.M2 06-18 14:46
PROVIDERS: Family Medicine; Internal Medicine Cardiovascular Disease; ADMIT Internal Medicine Nephrology; ATTEND Internal Medicine Nephrology
DX: I25.110 Atherosclerotic heart disease of native coronary artery with unstable angina pectoris (principal); I10 Essential (primary) hypertension; E78.5 Hyperlipidemia, unspecified; E11.9 Type 2 diabetes mellitus without complications; I48.91 Unspecified atrial fibrillation; G47.33 Obstructive sleep apnea (adult) (pediatric)

== ENCOUNTER 2019-11-17 08:35 | Observation (INO) | payer MEDICARE ==
[~2019-11-17] VITALS: Ht 172.7 cm; Wt 100.9 kg
[~2019-11-17 08:35] MED LIST changes: +ATIVAN1 MG PO; +BYSTOLIC10 MG PO; +CRESTOR5 MG PO; +HUMALOG 30100 UNITS/ SC; +LEVEMIR IN100 UNITS/ SC
[2019-11-17 09:08] LABS: BASOPHILS 0.5 % (0-2); EOSINOPHILS 2.4 % (0-7); HEMATOCRIT 46.6 % (42.0-54.0); HEMOGLOBIN 15.2 g/dL (13.5-17.5); IMMATURE GRANULOCYTES 0.2 % (0-5); LYMPHOCYTES 19.2 % (15-50); MCH 28.9 pg (26.0-34.0); MCHC 32.6 g/dL (31.0-37.0); MCV 88.6 fL (80.0-100.0); MEAN PLATELET VOLUME 9.9 fL (7.4-10.4); MONOCYTES 6.3 % (2-11); NEUTROPHILS 71.4 % (40-80); PLATELET COUNT 182 10x3/uL (130-400); RBC 5.26 10x6/uL (4.20-6.10); RDW 14.5 % (11.5-14.5); WBC 8.7 10x3/uL (4.8-10.8)
[2019-11-17 09:16] LABS: CALC OSMOLALITY 280 mosm/kg (275-300); CALCIUM 9.5 mg/dL (8.5-10.1); CARBON DIOXIDE 28.5 mmol/L (21.0-32.0); CHLORIDE - SERUM 100 mmol/L (98-107); CREATININE - SERUM 0.9 mg/dL (0.6-1.3); POTASSIUM - SERUM 4.1 mmol/L (3.5-5.1); SODIUM 137 mmol/L (136-145); UREA NITROGEN 11 mg/dL (7-18); eGFR NON AFRICAN AMERICAN > 90 mL/min (90-120)
[2019-11-17 09:29] LABS: GLUCOSE 239 mg/dL (74-106)
[2019-11-17 09:32] LABS: ALBUMIN 3.3 g/dL (3.4-5.0); ALKALINE PHOSPHATASE 79 U/L (30-120); ALT (SGPT) 23 U/L (10-68); AMYLASE - SERUM 35 U/L (25-115); BILIRUBIN - TOTAL 0.62 mg/dL (0.2-1.3); CKMB 3.5 U/L (0.0-3.6); CREATINE KINASE 110 UL (21-232); LIPASE 101 U/L (73-393); MAGNESIUM - SERUM 1.5 mg/dL (1.8-2.4); PRO BNP 298 pg/mL (0-125)
[2019-11-17 09:36] LABS: INR 1.05 (0.85-1.17); PROTIME 13.6 SECONDS (11.6-15.0)
[2019-11-17 09:37] LABS: TROPONIN-I < 0.017 ng/mL (0.000-0.060)
[2019-11-17] MEDS ORDERED: VIBRAMYCIN 100100 MG PO (14:09)
[2019-11-17 14:11] VITALS: BP 132/77; BMI 33.8
--- NOTE | 2019-11-17 14:16 | NUR ---
RECIEVED PT FROM ER. PT IS AAO AND UP AD YU. NO S/S OF DISTRESS NOTED. PT DENIES ANY NEEDS AT THIS TIME. RR EVEN AND UNLABORED ON 4L 02. PIV SALINE LOCKED. QUICKSTART, MED REQ, HISTORY, AND ASSESSSMENT COMPLETE. WILL CTM.
[2019-11-17 15:00] VITALS: BP 124/70
[2019-11-17 15:18] VITALS: Ht 172.7 cm; Wt 100.9 kg
[2019-11-17 15:44] LABS: CKMB 3.4 U/L (0.0-3.6); CREATINE KINASE 116 UL (21-232); TROPONIN-I < 0.017 ng/mL (0.000-0.060)
[2019-11-17 18:31] VITALS: BP 105/57
[2019-11-17 20:59] LABS: CKMB 3.2 U/L (0.0-3.6); CREATINE KINASE 109 UL (21-232)
[2019-11-17 21:00] LABS: TROPONIN-I < 0.017 ng/mL (0.000-0.060)
[2019-11-18 01:04] VITALS: BP 103/64
[2019-11-18 07:00] LABS: BASOPHILS 0.3 % (0-2); EOSINOPHILS 3.5 % (0-7); HEMATOCRIT 48.9 % (42.0-54.0); HEMOGLOBIN 15.6 g/dL (13.5-17.5); IMMATURE GRANULOCYTES 0.3 % (0-5); LYMPHOCYTES 22.8 % (15-50); MCH 28.9 pg (26.0-34.0); MCHC 31.9 g/dL (31.0-37.0); MEAN PLATELET VOLUME 10.3 fL (7.4-10.4); MONOCYTES 7.9 % (2-11); NEUTROPHILS 65.2 % (40-80); PLATELET COUNT 206 10x3/uL (130-400); RDW 14.7 % (11.5-14.5); WBC 8.6 10x3/uL (4.8-10.8)
[2019-11-18 07:13] LABS: MCV 90.6 fL (80.0-100.0)
[2019-11-18 07:36] LABS: ALBUMIN 3.4 g/dL (3.4-5.0); ALKALINE PHOSPHATASE 76 U/L (30-120); ALT (SGPT) 25 U/L (10-68); BILIRUBIN - TOTAL 0.67 mg/dL (0.2-1.3); CALCIUM 8.9 mg/dL (8.5-10.1); CARBON DIOXIDE 30.7 mmol/L (21.0-32.0); CHLORIDE - SERUM 103 mmol/L (98-107); CREATININE - SERUM 0.8 mg/dL (0.6-1.3); POTASSIUM - SERUM 4.5 mmol/L (3.5-5.1); PROTEIN - SERUM 6.8 g/dL (6.4-8.2); SODIUM 140 mmol/L (136-145); UREA NITROGEN 11 mg/dL (7-18); eGFR NON AFRICAN AMERICAN > 90 mL/min (90-120)
[2019-11-18 07:38] LABS: CALC OSMOLALITY 282 mosm/kg (275-300); GLUCOSE 188 mg/dL (74-106)
[2019-11-18 09:20] VITALS: BP 123/67
--- NOTE | 2019-11-18 11:54 | NUR ---
IV AND TELEMETRY DCD. DC PLANS GIVEN. UNDERSTANDING VOICED. ESCORTED TO CAR BY W/C.
--- NOTE | 2019-11-18 18:01 | MORECARE ---
CASE MANAGEMENT DISCHARGE SUMMARY PATIENT: SANCHEZ SINCLAIR UNIT: [id number] ADM DATE: 11/17/19 AGE: 59 : 58 SEX: M ROOM/BED: D.2119 AUTHOR: KONRAD MAI PHYSICIAN: REFERRING PHYSICIAN: SANG LUTZ MD DATE OF SERVICE: 11/18/19 Discharge Plan Patient Name: SANCHEZ SINCLAIR Facility: [facility]:[place] : 1960 Planned Disposition: Home Anticipated Discharge Date: 11/18/19 Discharge Date: 11/18/2019 Expected LOS: 1 Initial Reviewer: [email or web address] Initial Review Date: 11/17/2019 Generated: 11/18/19 7:00 pm Coverage Notice Reviewer: [id number] Margarito Alston Notice Issued Date-Time: 11/17/2019 14:31 Notice Type: Medicare Outpatient Observation Notice Notice Delivered To: Patient Relationship to Patient: Self Television Repairman Name: Sanchez Sinclair Delivery Method: HAND - Hand Delivered Demetria Days: Prior Verbal Notification: Recipient Understood Notice: Yes Recipient Signature: Yes Med Rec Note Co-signed by Attending: Coverage Notice Comment: VELASQUEZ signed/given to patient. Patient Name: SANCHEZ SINCLAIR Page [phone] at 1801 All edits/amendments must be made on the electronic document DICTATION DATE: 11/18/19 1800 LOG SAWYER: ARACELI 11/18/19 1800 RPT#: [id number] DC DATE:11/18/19 STATUS: DIS IN [facility] [address] [place] [address] END OF REPORT
== END 2019-11-18 11:55 | disposition home or self-care (01) ==
LOC: D.ER 08:35 → D.M2 10:26 → OBSVTIME 10:26 → D.M2 10:26
PROVIDERS: Family Medicine; ADMIT Family Medicine; ATTEND Family Medicine
DX: I25.110 Atherosclerotic heart disease of native coronary artery with unstable angina pectoris (principal); E11.9 Type 2 diabetes mellitus without complications; K21.9 Gastro-esophageal reflux disease without esophagitis; I11.0 Hypertensive heart disease with heart failure; I50.20 Unspecified systolic (congestive) heart failure; E78.5 Hyperlipidemia, unspecified